=== PATIENT | male | born 1935 | race Caucasian/White ===

== ENCOUNTER 2017-03-11 15:25 | Inpatient (IN) ==
[2017-03-11] MEDS ORDERED: 0.9 % Sodium Chloride 500 ML IVC ONE (15:59)
--- NOTE | 2017-03-11 16:16 | Emergency Department Note ---
Disposition Clinical Impression: Elevated troponin I level CAP (community acquired pneumonia) Qualifiers: Laterality: unspecified laterality Qualified Code(s): J18.9 - Pneumonia, unspecified organism Altered mental state Qualifiers: Altered mental status type: unspecified Qualified Code(s): R41.82 - Altered mental status, unspecified Disposition: Admitted As Inpatient Condition: Fair Time of Disposition: 18:40 Headache HPI - General Chief Complaint: ED Headache Stated Complaint: mult symptoms Time Seen by Provider: 03/11/17 15:42 Source: patient, family Limitations: no limitations Nursing Notes Reviewed: Yes Vital Signs Reviewed: Yes - History of Present Illness HPI Narrative: 81-year-old male history of average, hypertension, diabetes, dementia and delirium presents with altered mental status for the last several weeks, patient states that he has no complaints denies abdominal pain or chest pain, his states that he has had some episodes of headache and chest tightness, she is mostly concerned about his blood pressure which has been in the 190s systolic, she states she denies fever or chills, he has had some cough somewhat productive. She just is concerned and she lives alone at home with him and she is unable to take care of him very well, they have no home health resources. Pt Subjective Complaint: headache Onset (ago): week(s) Onset description: gradual Pain Severity: mild Pain Scale: 2 Quality: aching Improves with: nothing Worsens with: none Associated symptoms: Reports: none - Related Data Home Medications Medication Instructions Recorded Confirmed Aspirin Enteric Coated [Aspirin EC] 81 mg PO QAM 11/27/14 11/27/14 ClonazePAM [Klonopin] 0.5 mg PO BID 11/27/14 11/27/14 Clopidogrel [Plavix] 75 mg PO QAM 11/27/14 11/27/14 Ergocalciferol (VITAMIN D2) 50,000 unit PO QWEEK 11/27/14 11/27/14 [Vitamin D2 (50,000 UNIT)] Gabapentin [Neurontin] 100 mg PO HS 11/27/14 11/27/14 Hydrocodone/Acetaminophen [[place] 1 each PO DAILY PRN 11/27/14 11/27/14 5-325 Tablet] LevETIRAcetam [Keppra] 1,000 mg PO QPM 11/27/14 11/27/14 LevETIRAcetam [Keppra] 500 mg PO QAM 11/27/14 11/27/14 Simvastatin [Zocor] 10 mg PO QPM 11/27/14 11/27/14 Tamsulosin [Flomax] 0.4 mg PO QAM 11/27/14 11/27/14 Lisinopril [Zestril] 5 mg PO BID 03/11/17 03/11/17 Allergies Allergy/AdvReac Type Severity Reaction Status Date / Time Sulfa (Sulfonamide Allergy Anaphylaxis Verified 03/11/17 15:40 Antibiotics) All systems ED: reviewed and negative except as stated. Review of Systems: As Per HPI Constitutional: Denies: fever, chills Eyes: Denies: eye pain ENT ED: Denies: congestion Cardiovascular: Denies: chest pain Respiratory: Denies: cough Gastrointestinal: Denies: abdominal pain, nausea Genitourinary: Denies: urgency Musculoskeletal: Denies: back pain, neck pain Integumentary: Denies: rash Neurological: Reports: as per HPI, headache Psychiatric: Denies: anxiety, depression Endocrine: Denies: fatigue Headache PMH - Past Medical History Medical history: Reports: COPD, coronary artery disease, diabetes, hypertension , kidney stones, myocardial infarction Male Surgical History: Reports: coronary bypass (CABG) Psychiatric history: Reports: no psych history - Social History Smoking Status: Former smoker Alcohol use: Reports: none Drug use: Reports: none Physical Exam Constitutional: Elderly male appears to be pleasantly demented, no acute complaints vital signs stable except for mild elevation in blood pressure Eyes: PERRLA, sclera anicteric ENT & Mouth: MMM Neck: normal inspection, neck is supple Resp: Coarse lung sounds bilaterally CV: RRR, no m/g/r GI: normal inspection, soft, no guarding or rigidity Neuro: A&O2, CNII-XII grossly intact, BENTLEY Skin: on limited exam, skin intact with no rashes or lesions - General Limitations: no limitations General appearance: alert, in no apparent distress Course Course Narrative: 81-year-old male as well as multiple concerns including headache, hypertension, however he has no complaints at this time, he denies any headache or chest pain. CT head, urinalysis, chest pain workup ordered, - Reevaluation(s) Reevaluation #1: Reevaluated the patient, his initial EKG did show some inferior Q waves, with inverted T-wave in aVL, borderline repolarization versus less than 1 mm elevation in lead 3 we did speak with cardiology Dr. Tejeda as well as intervention who recommended repeat troponin, in the meantime evaluation by hospitalist and admission, his troponin elevated's plan is for colon cardiology back for possible evaluation for need for catheterization. Cardiology consult was placed, patient was given aspiri. She also had evidence of infiltrate on his x-ray, started empirically on cephalexin and azithromycin for pneumonia, community-acquired, plan is for admission, evaluation by physical therapy occupational therapy, cardiology consultation, suspect likely troponin elevation due to demand ischemia as well as CK D and troponin leak. - Consultations Consultation #1: Consulted with Dr Spaulding, plan for possible Heparinization then repeat troponin stat and anticoagulation to stop if upon and was negative, unable to assess bleeding risk status is the patient has bowel movements but he does not report if he has blood in his stool, his hemoglobin is borderline low, this time we will just give aspirin with a repeat troponin, will discuss with hospitalist as the patient's transport to the floor, who knows to call the tone artist apprentice if he has any elevation in his troponin. Time: 18:56 Vital Signs Temperature 98.6 F 03/11/17 15:34 Pulse Rate 64 03/11/17 15:34 Respiratory Rate 18 03/11/17 15:34 Blood Pressure 185/67 03/11/17 15:34 O2 Sat by Pulse Oximetry 93 03/11/17 15:34 Temperature 98.1 F 03/11/17 18:41 Pulse Rate 62 03/11/17 18:41 Respiratory Rate 18 03/11/17 18:41 Blood Pressure 156/76 03/11/17 18:41 O2 Sat by Pulse Oximetry 89 03/11/17 18:41 Oxygen Delivery Oxygen Delivery Room Air Headache - Differential Diagnosis Differential Diagnosis: Likely: migraine - Medical Records Medical records reviewed: Yes I reviewed the patient's medical records. - Lab Data Lab results reviewed: Yes I reviewed the patient's lab results. Result diagrams: 03/11/17 16:08 03/11/17 16:08 Lab Results 03/11/17 03/11/17 03/11/17 Range/Units 16:08 16:08 16:08 WBC 9.7 (4.3-11.1) K/mcL RBC 4.49 (4.19-5.50) M/mcL Hgb 12.1 L (12.9-16.9) g/dL Hct 38.6 (37.5-50.1) % MCV 86.0 (83.0-100.0) fL MCH 26.9 L (28.0-33.3) pg MCHC 31.3 L (31.6-35.5) g/dL RDW 13.2 (11.5-14.5) % Plt Count 231 (140-400) K/mcL MPV 10.4 (9.4-12.4) fL Immature Gran % 0.3 (0-4) % Seg Neutrophils % 87.6 % Lymphocytes % 4.7 % Monocytes % 4.7 % Eosinophils % 2.4 % Basophils % 0.3 % Neutrophils # 8.5 (1.6-8.9) K/mcL Lymphocytes # 0.5 L (0.6-4.6) K/mcL Monocytes # 0.5 (0.0-1.3) K/mcL Eosinophils # 0.2 (0.0-0.6) K/mcL Basophils # 0.0 (0.0-0.2) K/mcL PT 13.1 H (9.4-12.1) Seconds INR 1.2 APTT 30.6 (26.0-36.0) Seconds Sodium (136-145) mEq/L Potassium (3.5-5.1) mEq/L Chloride (98-107) mEq/L Carbon Dioxide (23-29) mEq/L BUN (8-23) mg/dL Creatinine (0.70-1.30) mg/dL Est GFR ( Amer) (> 60) Est GFR (Non-Af Amer) (> 60) BUN/Creatinine Ratio (6-26) Glucose (70-105) mg/dL Calculated Osmolality (280-300) Calcium (8.6-10.3) mg/dL Total Bilirubin 0.7 (0.3-1.0) mg/dL Direct Bilirubin 0.2 (0.0-0.2) mg/dL Indirect Bilirubin 0.5 (0.0-1.2) mg/dL AST 18 (13-39) Units/L ALT 12 (7-52) Units/L Alkaline Phosphatase 52 (34-104) Units/L Creatine Kinase (30-223) Units/L Troponin I (< 0.04) ng/mL Serum Total Protein 7.6 (6.4-8.9) g/dL Albumin 3.9 (3.5-5.7) g/dL Globulin 3.7 H (2.4-3.5) g/dL Albumin/Globulin Ratio 1.1 (1.1-2.2) Lipase 17 (11-82) Units/L TSH (0.340-5.600) mcIU/mL Urine Color (Yellow) Urine Clarity (Clear) Urine pH (5.0-8.0) pH Units Ur Specific [place] (1.010-1.025) Urine Protein (Neg-Trace) mg/dL Urine Glucose (UA) (Normal) mg/dL Urine Ketones (Negative) mg/dL Urine Blood (Negative) Urine Nitrite (Negative) Urine Bilirubin (Negative) Urine Urobilinogen (Normal) mg/dL Ur Leukocyte Esterase (Negative) Urine Microscopic RBC (0-3) per hpf Urine Microscopic WBC (0-3) per hpf Ur Squamous Epith Cells (None-Few) per lpf Urine Bacteria (None-Few) per hpf Hyaline Casts (None-Few) per lpf Ur Culture Indicated? (NO) 03/11/17 03/11/17 03/11/17 Range/Units 16:08 16:08 16:19 WBC (4.3-11.1) K/mcL RBC (4.19-5.50) M/mcL Hgb (12.9-16.9) g/dL Hct (37.5-50.1) % MCV (83.0-100.0) fL MCH (28.0-33.3) pg MCHC (31.6-35.5) g/dL RDW (11.5-14.5) % Plt Count (140-400) K/mcL MPV (9.4-12.4) fL Immature Gran % (0-4) % Seg Neutrophils % % Lymphocytes % % Monocytes % % Eosinophils % % Basophils % % Neutrophils # (1.6-8.9) K/mcL Lymphocytes # (0.6-4.6) K/mcL Monocytes # (0.0-1.3) K/mcL Eosinophils # (0.0-0.6) K/mcL Basophils # (0.0-0.2) K/mcL PT (9.4-12.1) Seconds INR APTT (26.0-36.0) Seconds Sodium 137 (136-145) mEq/L Potassium 4.5 (3.5-5.1) mEq/L Chloride 103 (98-107) mEq/L Carbon Dioxide 28 (23-29) mEq/L BUN 25 H (8-23) mg/dL Creatinine 1.53 H (0.70-1.30) mg/dL Est GFR ( Amer) 53 L (> 60) Est GFR (Non-Af Amer) 44 L (> 60) BUN/Creatinine Ratio 16 (6-26) Glucose 132 H (70-105) mg/dL Calculated Osmolality 290 (280-300) Calcium 9.3 (8.6-10.3) mg/dL Total Bilirubin (0.3-1.0) mg/dL Direct Bilirubin (0.0-0.2) mg/dL Indirect Bilirubin (0.0-1.2) mg/dL AST (13-39) Units/L ALT (7-52) Units/L Alkaline Phosphatase (34-104) Units/L Creatine Kinase 27 L (30-223) Units/L Troponin I 0.04 H* (< 0.04) ng/mL Serum Total Protein (6.4-8.9) g/dL Albumin (3.5-5.7) g/dL Globulin (2.4-3.5) g/dL Albumin/Globulin Ratio (1.1-2.2) Lipase (11-82) Units/L TSH 0.806 (0.340-5.600) mcIU/mL Urine Color Yellow (Yellow) Urine Clarity Cloudy A (Clear) Urine pH 6.0 (5.0-8.0) pH Units Ur Specific [place] 1.017 (1.010-1.025) Urine Protein 30 H (Neg-Trace) mg/dL Urine Glucose (UA) Normal (Normal) mg/dL Urine Ketones Negative (Negative) mg/dL Urine Blood Large H (Negative) Urine Nitrite Negative (Negative) Urine Bilirubin Negative (Negative) Urine Urobilinogen Normal (Normal) mg/dL Ur Leukocyte Esterase Large H (Negative) Urine Microscopic RBC 5-15 H (0-3) per hpf Urine Microscopic WBC TNTC H (0-3) per hpf Ur Squamous Epith Cells Many H (None-Few) per lpf Urine Bacteria Few (None-Few) per hpf Hyaline Casts None Seen (None-Few) per lpf Ur Culture Indicated? NO. (NO) - Radiology Data Radiology results reviewed: Yes I reviewed the patient's radiology results. - EKG Data EKG attestation: Yes I reviewed and interpreted this EKG. EKG shows normal: sinus rhythm Rate: normal (65 bpm QRS 107 QTC 420 early repolarization in lead 3, ST depression and inverted T-wave in aVL.) Q waves: III, aVF Interpretation: other (Repeat EKG at 1805 shows persistent aVL T-wave inversion , earlier formalization lead 3 Q waves in 3 and aVF) - Core Measures AMI Core Measures Followed: Yes
[2017-03-11 16:29] LABS: Basophils % 0.3 %; Eosinophils # 0.2 K/mcL (0.0-0.6); Eosinophils % 2.4 %; Hematocrit 38.6 % (37.5-50.1); Hemoglobin 12.1 g/dL (12.9-16.9); Immature Granulocytes % 0.3 % (0-4); Lymphocytes # 0.5 K/mcL (0.6-4.6); Lymphocytes % 4.7 %; Mean Corpuscular HGB Conc 31.3 g/dL (31.6-35.5); Mean Corpuscular Hemoglobin 26.9 pg (28.0-33.3); Mean Platelet Volume 10.4 fL (9.4-12.4); Monocytes # 0.5 K/mcL (0.0-1.3); Monocytes % 4.7 %; Neutrophils # 8.5 K/mcL (1.6-8.9); Platelet Count 231 K/mcL (140-400); Red Blood Count 4.49 M/mcL (4.19-5.50); Red Cell Distribution Width 13.2 % (11.5-14.5); Segmented Neutrophils % 87.6 %
[2017-03-11 16:33] LABS: Bilirubin,Urine Negative (Negative); Blood,Urine Large (Negative); Clarity,Urine Cloudy (Clear); Color,Urine Yellow (Yellow); Glucose,Urine (UA) Normal (Normal); Ketones,Urine Negative (Negative); Leukocyte Esterase,Urine Large (Negative); Nitrite,Urine Negative (Negative); Protein,Urine 30 mg/dL (Neg-Trace); Specific Gravity,Urine 1.017 (1.010-1.025); Urobilinogen,Urine Normal (Normal)
[2017-03-11 16:34] LABS: INR 1.2; Prothrombin Time 13.1 Seconds (9.4-12.1)
[2017-03-11 16:35] LABS: Hyaline Casts,Urine None Seen per lpf (None-Few); Squamous Epithelial Cell,Urine Many per lpf (None-Few); WBC,Urine TNTC per hpf (0-3)
[2017-03-11 16:36] LABS: Activated Partial Thrombo Time 30.6 Seconds (26.0-36.0)
[2017-03-11 16:46] LABS: Bacteria,Urine Few per hpf (None-Few)
[2017-03-11 16:47] LABS: Albumin 3.9 g/dL (3.5-5.7); Albumin/Globulin Ratio 1.1 (1.1-2.2); Bilirubin,Direct 0.2 mg/dL (0.0-0.2); Bilirubin,Indirect 0.5 mg/dL (0.0-1.2); Bilirubin,Total 0.7 mg/dL (0.3-1.0); Calcium 9.3 mg/dL (8.6-10.3); Globulin 3.7 g/dL (2.4-3.5); Potassium 4.5 mEq/L (3.5-5.1); Total Protein 7.6 g/dL (6.4-8.9)
--- NOTE | 2017-03-11 17:04 | Emergency Department Note ---
START Narrative - START START: I examined this patient and my medical decision-making was reviewed with the Resident Physician. I agree with the documented findings, disposition and treatment plan as described except to the extent set forth below. 81 yo M here for confusion, increasing weakness, back pain, problems with BPs. Pt is a known diabetic, copd, CABG pt. He lives at home with . she states hes been getting more and more confused lately with poor appetite. labs pending ct pending cxr concerns for possible pneumonia; could be cause of pts confusion and weakness. pt to be admitted for IV fluids, weakness eval.
[2017-03-11] MEDS ORDERED: Azithromycin 500 MG in D5% in Water 250 ML IVPB ONE (17:22)
[2017-03-11] MEDS ORDERED: Aspirin 81 MG TAB.CHEW PO STA (17:35)
[2017-03-11 17:37] LABS: Thyroid Stimulating Hormone 0.806 mcIU/mL (0.340-5.600)
--- NOTE | 2017-03-11 18:03 | Internal Med History&Physical ---
Date of Encounter: 03/11/17 Time of Encounter: 18:00 Assessment and Plan (1) Pneumonia Current visit: Yes Status: Acute Comminuted acquired pneumonia with start patient on Zosyn Qualifiers: Pneumonia type: due to unspecified organism Laterality: unspecified laterality Lung location: unspecified part of lung Qualified Code(s): J18.9 - Pneumonia, unspecified organism (2) UTI (urinary tract infection) Current visit: Yes Status: Acute Patient has UTI and also pneumonia Zosyn will cover both Qualifiers: Urinary tract infection type: acute cystitis Hematuria presence: without hematuria Qualified Code(s): N30.00 - Acute cystitis without hematuria (3) Mental status change Current visit: Yes Status: Acute Mental status changes most likely secondary to pneumonia and UTI and dehydration Qualifiers: Altered mental status type: somnolence Qualified Code(s): R40.0 - Somnolence (4) HTN (hypertension) Current visit: Yes Status: Chronic Chronic and/or control without home medication for better blood pressure control Qualifiers: Hypertension type: essential hypertension Qualified Code(s): I10 - Essential (primary) hypertension (5) COPD (chronic obstructive pulmonary disease) Current visit: No Status: Acute Qualifiers: COPD type: emphysema Emphysema type: unspecified Qualified Code(s): J43.9 - Emphysema, unspecified (6) Diabetes Current visit: No Status: Chronic Chronic resume home medication and place on sliding scale Qualifiers: Diabetes mellitus type: type 2 Diabetes mellitus complication status: without complication Diabetes mellitus detention insulin use: unspecified guest services representative insulin use status Qualified Code(s): E11.9 - Type 2 diabetes mellitus without complications (7) Hx of CABG Current visit: No Status: Acute No chest pain (8) ANGE (acute kidney injury) Current visit: Yes Status: Acute Likely due to dehydration Internal Medicine - H&P: HPI Chief complaint: sob and weakness Admitted From: Emergency Dept Plans for Post Hospital Care: Home History of present illness: Mr. Lombardi is a 81 year old male Patient with history of COPD, CAD, had a history of CABG, diabetes, hypertension , high cholesterol patient was brought in by with multiple complaints patient has been confused some mental status changes also coughing, headache and back pain and increased shortness of breath and more lethargic emergency room evaluation shows patient have UTI , mildly elevated troponin of 0.04 and renal failure creatinine 1.5 chest x ray is suggestive of pneumonia patient will be admitted for IV antibiotics probably start him on Zosyn blood cultures and iv dehydration Past Med Surg Social Fam HX - Past Medical History Medical history: COPD, coronary artery disease, diabetes, hypertension, kidney stones, myocardial infarction Psychiatric history: no psych history - Past Surgical History Surgical History: coronary bypass (CABG) - Social History Smoking Status: Former smoker Smokeless Tobacco Status: No Alcohol use: none Drug use: none - Family History Father Hx Family Cardiac Disorders: Yes (englarged heart) Internal Medicine - H&P: Meds Aspirin Enteric Coated [Aspirin EC] 81 mg PO QAM 11/27/14 [History] ClonazePAM [Klonopin] 0.5 mg PO BID 11/27/14 [History] Clopidogrel [Plavix] 75 mg PO QAM 11/27/14 [History] Ergocalciferol (VITAMIN D2) [Vitamin D2 (50,000 UNIT)] 50,000 unit PO MO [History] Gabapentin [Neurontin] 100 mg PO HS 11/27/14 [History] Hydrocodone/Acetaminophen [[place] 5-325 Tablet] 1 each PO DAILY PRN 11/27/14 [ History] LevETIRAcetam [Keppra] 1,000 mg PO QPM 11/27/14 [History] LevETIRAcetam [Keppra] 500 mg PO QAM 11/27/14 [History] Simvastatin [Zocor] 10 mg PO QPM 11/27/14 [History] Tamsulosin [Flomax] 0.8 mg PO QAM 11/27/14 [History] Lisinopril [Zestril] 5 mg PO BID 03/11/17 [History] 3 Allergy/AdvReac Type Severity Reaction Status Date / Time Sulfa (Sulfonamide Allergy Anaphylaxis Verified 03/11/17 15:40 Antibiotics) All Systems PM: A 10-system review of systems was performed and is negative for pertinent findings except as documented above in the HPI. - Constitutional Constitutional: fatigue, lethargy - EENT Eyes: no change in vision, no discharge, no pain, no photophobia Ears: no ear discharge, no ear pain, no tinnitus Nose, mouth and throat: no dysphagia, no nasal discharge, no neck pain, no sore throat - Cardiovascular Cardiovascular ROS IM: no chest pain, no diaphoresis, no dyspnea, no lightheadedness, no palpitations, no syncope - Respiratory Respiratory: cough, dyspnea - Gastrointestinal Gastrointestinal: no abdominal pain, no diarrhea, no hematemesis, no hematochezia, no melena, no nausea, no vomiting - Musculoskeletal Musculoskeletal ROS IM: no numbness, no tingling - Constitutional Vitals: Temp Pulse Resp BP Pulse Ox 98.6 F 64 18 185/67 93 03/11/17 15:34 03/11/17 15:34 03/11/17 15:34 03/11/17 15:34 03/11/17 15:34 General appearance: Present: mild distress - Eye Eye exam: Present: PERRL, conjuntiva pink, sclera anicteric Pupils: Present: PERRL - Respiratory Respiratory exam: Present: rhonchi - Cardiovascular Cardiovascular exam: Present: RRR, +S1, +S2. Absent: diastolic murmur, gallop, rubs, systolic murmur - GI/Abdominal GI/Abdominal exam: Present: normal bowel sounds, soft, no peritoneal signs. Absent: distended, tenderness - Extremities Exam Extremities exam: Present: warm, radial pulses palpable and symmetrical. Absent : calf tenderness, cyanotic, pedal edema Internal Med - H&P Results - Labs CBC & Chem 7: 03/11/17 16:08 03/11/17 16:08 Labs: Short CBC 03/11/17 Range/Units 16:08 WBC 9.7 (4.3-11.1) K/mcL Hgb 12.1 L (12.9-16.9) g/dL Hct 38.6 (37.5-50.1) % Plt Count 231 (140-400) K/mcL Neutrophils # 8.5 (1.6-8.9) K/mcL BMP 03/11/17 16:08 Sodium 137 Potassium 4.5 Chloride 103 Carbon Dioxide 28 BUN 25 H Creatinine 1.53 H Glucose 132 H Calcium 9.3 Cardiac Enzymes 03/11/17 Range/Units 16:08 Troponin I 0.04 H* (< 0.04) ng/mL Liver Function 03/11/17 Range/Units 16:08 Total Bilirubin 0.7 (0.3-1.0) mg/dL Direct Bilirubin 0.2 (0.0-0.2) mg/dL AST 18 (13-39) Units/L ALT 12 (7-52) Units/L Alkaline Phosphatase 52 (34-104) Units/L Albumin 3.9 (3.5-5.7) g/dL Urine 03/11/17 Range/Units 16:19 Urine Color Yellow (Yellow) Urine Clarity Cloudy A (Clear) Urine pH 6.0 (5.0-8.0) pH Units Ur Specific [place] 1.017 (1.010-1.025) Urine Protein 30 H (Neg-Trace) mg/dL Urine Glucose (UA) Normal (Normal) mg/dL - Impressions ITS Impressions Chest X-Ray 03/11/17 15:59 IMPRESSION: Low lung volumes with features of pulmonary vascular congestion and edema. Difficult to exclude superimposed aspiration or pneumonia which could be present in the appropriate clinical context. D/ / Ankur Yanes / Ankur Yanes Interpreting Provider: Ankur Yanes Head CT 03/11/17 15:59 IMPRESSION: No acute intracranial abnormality. Cerebral atrophy. Chronic small vessel ischemic changes. Remote right temporoparietal infarct. D/ / 03/11/2017 16:59:02 Nneka Lomeli MD / Danelle Gonzalez Interpreting Provider: Nneka Lomeli MD
[2017-03-11] MEDS ORDERED: Naloxone 0.4 MG/ML INJ IVP PRN (18:08)
[2017-03-11] MEDS ORDERED: *HR* HYDROcodone/Acet 5/325 mg TABLET PO PRN (18:12)
[2017-03-11] MEDS ORDERED: 0.9 % Sodium Chloride 1,000 ML IVC SCH (18:15)
[2017-03-11] MEDS: clonazePAM 0.5 MG TABLET PO SCH (20:22)
[2017-03-11] MEDS: Gabapentin 100 MG CAPSULE PO SCH (20:23)
[2017-03-11] MEDS ORDERED: cefTRIAXone 1,000 MG in Water for inj. (sterile) 10 ML IVP ONE (21:00)
[2017-03-11] MEDS: levETIRAcetam 250 MG TABLET PO SCH (21:39)
[2017-03-12 00:38] LABS: Basophils % 0.2 %; Eosinophils # 0.1 K/mcL (0.0-0.6); Eosinophils % 1.4 %; Hematocrit 34.6 % (37.5-50.1); Hemoglobin 11.1 g/dL (12.9-16.9); Immature Granulocytes % 0.3 % (0-4); Lymphocytes # 0.9 K/mcL (0.6-4.6); Lymphocytes % 9.5 %; Mean Corpuscular HGB Conc 32.1 g/dL (31.6-35.5); Mean Corpuscular Hemoglobin 27.3 pg (28.0-33.3); Mean Platelet Volume 10.6 fL (9.4-12.4); Monocytes # 0.7 K/mcL (0.0-1.3); Monocytes % 7.5 %; Neutrophils # 7.6 K/mcL (1.6-8.9); Platelet Count 192 K/mcL (140-400); Red Blood Count 4.07 M/mcL (4.19-5.50); Red Cell Distribution Width 13.3 % (11.5-14.5); Segmented Neutrophils % 81.1 %
--- NOTE | 2017-03-12 00:54 | Event Note ---
Date of Encounter: 03/12/17 Time of Encounter: 00:50 Called about patient having slow HR on telemetry. I requested EKG and reviewed it which suggests slow A. fib with HR 48. BP stable with SBP in the 150's. I asked RN to monitor and contact me if HR drops to < 40 and/or if BP becomes unstable. If so, he will need Dopamine infusion. Cardiology has been consulted by admitting physician. No report of chest pain by patient per RN. I reviewed his medications, and he is not on any AV dakota suppressants.
[2017-03-12 01:02] LABS: Magnesium 1.9 mg/dL (1.6-2.6)
[2017-03-12] MEDS: *HR* Enoxaparin 40 MG/0.4 ML SYRINGE SQ SCH (06:49)
[2017-03-12] MEDS: amLODIPine 5 MG TABLET PO SCH (09:26)
[2017-03-12] MEDS: clonazePAM 0.5 MG TABLET PO SCH ×2 (09:26→21:30)
[2017-03-12] MEDS: levETIRAcetam 250 MG TABLET PO SCH ×2 (09:26→19:02)
[2017-03-12] MEDS: Aspirin Enteric Coated 81 MG Tablet PO SCH (09:26)
[2017-03-12] MEDS ORDERED: Furosemide 20 MG/2 ML VIAL IVP ONE (10:41)
--- NOTE | 2017-03-12 12:17 | Cardiology Consult Note ---
Date of Encounter: 03/12/17 Time of Encounter: 12:17 Assessment and Plan (1) Elevated troponin I level Current Visit: Yes Status: Acute Mild troponin elevation 0.04, 0.05, 0.06, 0.05. Likely demand ischemia in the setting of HTN with CKD. One episode of chest discomfort per . Patient denies but is confused. Check TTE. TSH normal. Last TTE 02/2015- EF 50%, moderate LVH calcified AV, mild AR, mild TR. Continue medical management. Asa, plavix and statin. No bb due to bradycardia. (2) Bradycardia Current Visit: Yes Status: Acute Patient noted to have bradycardia last night. EKG shows SB with long first degree block and occasional second degree type I ( wenckebach). No indication for PPM at this time. HR currently 60-70's. Continue to monitor. Avoid AV dakota angi. TTE pending. Discussion w patient/family: The assessment and plan as outlined above was discussed with the patient and/or family members who expressed understanding and agreement. All questions were answered. Thank you for involving us in the care of your patient. Please call with any questions. History of Present Illness Consult date: 03/12/17 Requesting physician: Enmanuel Carrillo Consult reason: elevated troponin and bradycardia Chief complaint: AMS History of present illness: Mr. Lombardi is a 81 year old male with a history of CAD s/p CABG, CVA , DM type II, and COPD who was brought to the ER by his family for increasing confusion and elevated blood pressure. B/p 190's systolic at home. reported multiple other complaints including patient c/o chest pain once, headaches, and fatigue. Cardiology consulted for bradycardia and mild troponin elevation. HR noted to be in the upper 40's. EKG was concerning for afib per primary team. On exam patient is confused and trying to pull IV and telemetry off. and sons at bedside. Denies chest pain or SOB. Past Med Surg Social Fam HX - Past Medical History Attestation: Yes The following information was validated with the patient. Medical history: arthritis, COPD, coronary artery disease, diabetes, hypertension, kidney stones, myocardial infarction Psychiatric history: no psych history - Past Surgical History Surgical History: coronary bypass (CABG) - Social History Smoking Status: Former smoker Smokeless Tobacco Status: No Alcohol use: none Drug use: none - Family History Father Hx Family Cardiac Disorders: Yes (englarged heart) Medications and Allergies Aspirin Enteric Coated [Aspirin EC] 81 mg PO QAM 11/27/14 [History] ClonazePAM [Klonopin] 0.5 mg PO BID 11/27/14 [History] Clopidogrel [Plavix] 75 mg PO QAM 11/27/14 [History] Ergocalciferol (VITAMIN D2) [Vitamin D2 (50,000 UNIT)] 50,000 unit PO MO [History] Gabapentin [Neurontin] 100 mg PO HS 11/27/14 [History] Hydrocodone/Acetaminophen [[place] 5-325 Tablet] 1 each PO DAILY PRN 11/27/14 [ History] LevETIRAcetam [Keppra] 1,000 mg PO QPM 11/27/14 [History] LevETIRAcetam [Keppra] 500 mg PO QAM 11/27/14 [History] Simvastatin [Zocor] 10 mg PO QPM 11/27/14 [History] Tamsulosin [Flomax] 0.8 mg PO QAM 11/27/14 [History] Lisinopril [Zestril] 5 mg PO BID 03/11/17 [History] 3 Allergy/AdvReac Type Severity Reaction Status Date / Time Sulfa (Sulfonamide Allergy Anaphylaxis Verified 03/11/17 15:40 Antibiotics) All Systems Review: A 10-system review of systems was performed and is negative for pertinent findings except as documented above in the HPI. Physical Examination Vital Signs, Last 4 Hours Temp Pulse Resp BP Pulse Ox 03/12/17 08:29 98.3 F 74 16 169/61 93 General: Conversant, No Apparent Distress, Other (Restless and confused) HEENT: Atraumatic, Normocephaly, Mucus Membranes Moist Neck: No JVD, Normal carotid pulses Cardiac: Other (Irregular, frequent PAC. ) Lungs: Normal Breath Sounds, No Wheeze, Rales, Rhonchi Neuro: Alert and responsive, No focal deficits noted Abdomen: Soft, Non-Tender Skin: No rashes noted on visualized skin Musculoskeletal: No Chest Wall Tenderness Extremities: No Clubbing, No Cyanosis, No Edema, Normal Pulses Results 03/12/17 00:11 03/11/17 16:08 Lab Results 03/11/17 03/12/1703/12/18 18:29 00:11 00:11 WBC 9.4 Hgb 11.1 L Hct 34.6 L Plt Count 192 Magnesium Troponin I 0.05 H* 0.06 H* B-Natriuretic Peptide 03/12/17 03/12/17 03/12/17 00:11 00:11 07:07 WBC Hgb Hct Plt Count Magnesium 1.9 Troponin I 0.05 H* B-Natriuretic Peptide 1239 H - Imaging and Cardiology Echo: report reviewed - EKG Interpretation EKG results cardiology: personally reviewed Consult Discharge Plan - Plan Referrals: Dejan Moraes MD [Primary Care Provider] -
--- NOTE | 2017-03-12 14:13 | Internal Med Progress Note ---
Date of Encounter: 03/12/17 Time of Encounter: 14:01 - Assessment and plan (1) Acute encephalopathy Current Visit: Yes Status: Acute Assessment and plan: Suspect related to infection of pneumonia/UTI. Other etiologies possible include CVA, hypertensive encephalopathy, or worsening dementia. MRI brain/carotids when patient more stable. Unasyn to cover for possible aspiration pneumonia - bedside swallow eval Blood culture, sputum culture, s pneumo and legionella ag, mycoplasma lvl, procalcitonin. Drug tox screen, ASA, APAP lvl BP control without aggressive correction Will consult Neurology if no resolution of symptoms. (2) HTN (hypertension) Current Visit: Yes Status: Chronic Assessment and plan: Continue Norvasc, low dose lisinopril Hydralazine IV prn, Qualifiers: Hypertension type: essential hypertension Qualified Code(s): I10 - Essential (primary) hypertension (3) UTI (urinary tract infection) Current Visit: Yes Status: Acute Assessment and plan: Unasyn Qualifiers: Urinary tract infection type: acute cystitis Hematuria presence: without hematuria Qualified Code(s): N30.00 - Acute cystitis without hematuria (4) Pneumonia Current Visit: Yes Status: Acute Assessment and plan: as above, follow-up sputum and blood cultures. Continue Unasyn. May consider repeat chest x-ray after diuresis. Qualifiers: Pneumonia type: due to unspecified organism Laterality: unspecified laterality Lung location: unspecified part of lung Qualified Code(s): J18.9 - Pneumonia, unspecified organism (5) Hematuria Current Visit: Yes Status: Acute Assessment and plan: He does complain of abdominal pain per reports. Urinalysis on admission did show large amount of blood, and proteinuria also noted. INR is 1.2, platelet count is within normal limits. This could be related to UTI. Possibly nephrolithiasis as well based on patient PMH. Will need to search other etiology, prostate and/or bladder related. Follow-up CT abdomen/Pelvis. Qualifiers: Hematuria type: gross Qualified Code(s): R31.0 - Gross hematuria (6) Chronic kidney disease (CKD), stage III (moderate) Current Visit: Yes Status: Acute Assessment and plan: Does not appear to have ANGE as patient is currently at baseline renal function. Given multiple issues currently, we will monitor renal function closely and renally dose all medications. (7) Bradycardia Current Visit: Yes Status: Acute Assessment and plan: Evaluated by Cardiology. Noted that sinus bradycardia with first degree AV block. Will avoid AV dakota blocking agents per recommendations. Echocardiogram f/u (8) Elevated troponin I level Current Visit: Yes Status: Acute Assessment and plan: Likely demand ischemia (9) COPD (chronic obstructive pulmonary disease) Current Visit: No Status: Acute Assessment and plan: Not in acute exacerbation. 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 Qualifiers: Hypervolemia type: unspecified Qualified Code(s): E87.70 - Fluid overload, unspecified (14) Abdominal pain Current Visit: Yes Status: Acute Assessment and plan: Patient is poor historian currently unsure if this is due to dementia or acute encephalopathy. Will obtain CT abdomen/pelvis without contrast. I reassessed patient later in afternoon and at this moment he denies abdominal/flank/ suprapubic pain. Qualifiers: Abdominal location: generalized Qualified Code(s): R10.84 - Generalized abdominal pain - Subjective Interval history: Examined patient with in room in this morning. He presented for confusion for several weeks, hypertension, found to have UTI, pneumonia, dehydration. Currently being treated for both with Zosyn. states his BP was elevated at home about 216/70s and so she brought patient in. He has known history of CABG and CVA. at bedside states he is still not at baseline. BP today shows gradual improvement. 194/65 in AM, 169/61 3 hours later with HR in the 70s. Weakness is still present. Acute encephalopathy - infectious vs CVA known history vs hypertensive encephalopathy Fluid overload - diuresis Weakness Bradycardia Hematuria Possible aspiration pneumonia abdominal pain - altered unable to provide better detail of pain. Unasyn Bedside swallow eval Pneumonia studies. CT abdomen/pelvis Pt/OT for weakness and possible placement since patient cannot take care of himself and is having difficulty taking care of him as well Neurology consult if no baseline - Constitutional Vitals: Temp Pulse Resp BP Pulse Ox 99.5 F 74 18 105/73 94 03/12/17 12:51 03/12/17 12:51 03/12/17 12:51 03/12/17 12:51 03/12/17 12:51 Internal Medicine: Result - Labs CBC & Chem 7: 03/12/17 00:11 03/11/17 16:08 Labs: Short CBC 03/12/17 Range/Units 00:11 WBC 9.4 (4.3-11.1) K/mcL Hgb 11.1 L (12.9-16.9) g/dL Hct 34.6 L (37.5-50.1) % Plt Count 192 (140-400) K/mcL Neutrophils # 7.6 (1.6-8.9) K/mcL Cardiac Enzymes 03/11/17 03/12/17 03/12/17 Range/Units 18:29 00:11 07:07 Troponin I 0.05 H* 0.06 H* 0.05 H* (< 0.04) ng/mL - ABG Interpretation ABG results: PT/INR, D-dimer PT 13.1 Seconds (9.4-12.1) H 03/11/17 16:08 Consult Discharge Plan - Plan Referrals: Dejan Moraes MD [Primary Care Provider] -
[2017-03-12] MEDS: Ampicillin/Sulbactam 3,000 MG in 0.9 % Sodium Chloride Mini Bag 100 ML IVPB SCH ×2 (14:30→19:03)
[2017-03-12 15:15] LABS: Acetaminophen < 1.0 mcg/mL (10-30); Salicylate < 5.0 mg/dL (15.0-30.0)
--- NOTE | 2017-03-12 17:17 | Electrocardiograph Report ---
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
--- NOTE | 2017-03-12 17:22 | Electrocardiograph Report ---
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
[2017-03-12] MEDS ORDERED: levETIRAcetam 250 MG TABLET PO SCH (18:00)
[2017-03-12] MEDS: Gabapentin 100 MG CAPSULE PO SCH (21:29)
[2017-03-13] MEDS ORDERED: Haloperidol Lactate 5 MG/ML VIAL IVP ONE (01:44)
[2017-03-13] MEDS: Ampicillin/Sulbactam 3,000 MG in 0.9 % Sodium Chloride Mini Bag 100 ML IVPB SCH ×3 (01:55→12:17)
[2017-03-13] MEDS: *HR* Enoxaparin 40 MG/0.4 ML SYRINGE SQ SCH (05:52)
[2017-03-13 06:43] LABS: Basophils % 0.2 %; Eosinophils % 0.4 %; Hematocrit 33.3 % (37.5-50.1); Hemoglobin 10.9 g/dL (12.9-16.9); Immature Granulocytes % 0.3 % (0-4); Lymphocytes # 0.8 K/mcL (0.6-4.6); Lymphocytes % 7.6 %; Mean Corpuscular HGB Conc 32.7 g/dL (31.6-35.5); Mean Corpuscular Hemoglobin 27.5 pg (28.0-33.3); Mean Corpuscular Volume 83.9 fL (83.0-100.0); Mean Platelet Volume 10.3 fL (9.4-12.4); Monocytes # 0.6 K/mcL (0.0-1.3); Monocytes % 6.2 %; Neutrophils # 8.8 K/mcL (1.6-8.9); Platelet Count 202 K/mcL (140-400); Red Blood Count 3.97 M/mcL (4.19-5.50); Red Cell Distribution Width 13.6 % (11.5-14.5); Segmented Neutrophils % 85.3 %
[2017-03-13 07:13] LABS: Calcium 8.6 mg/dL (8.6-10.3); Potassium 3.6 mEq/L (3.5-5.1)
--- NOTE | 2017-03-13 08:11 | Urology - Consult Note ---
Date of Encounter: 03/13/17 Time of Encounter: 08:10 - Assessment and Plan (1) Staghorn calculus Current Visit: Yes Status: Acute Assessment and plan: I reviewed the ct scan and the patient has a large volume of stone in the right kidney extending to the UPJ. There is hydronephrosis in the upper pole. I suspect this is the cause of his flank pain, hematuria, and contributing to his renal insufficiency. appropriate treatment is placement of a ureteral stent with staged PCNL. This has been discussed with the family and they agree to proceed. the signed the consent bc pt has moderate dementia. The ureteral stent will be placed in AM. Urology CN:HPI Consult date: 03/13/17 Reason for consult Urology: Hydronephrosis History of present illness: 81 yo male presents with altered mental status. flank pain. hematuria. CT scan Moderate right pelvocaliectasis with bulky right nephrolithiasis. Lack of hydroureter and abrupt decompression of the right renal pelvis at the UPJ raises a question of underlying stricture. Difficult to exclude superimposed pyelonephritis given asymmetrically increased surrounding right renal inflammatory stranding. No drainable perinephric fluid collection. Past Med Surg Social Fam HX - Past Medical History Medical history: arthritis, COPD, coronary artery disease, diabetes, hypertension, kidney stones, myocardial infarction Psychiatric history: no psych history - Past Surgical History Surgical History: coronary bypass (CABG) - Social History Smoking Status: Former smoker Smokeless Tobacco Status: No Alcohol use: none Drug use: none - Family History Father Hx Family Cardiac Disorders: Yes (englarged heart) Medications and Allergies Aspirin Enteric Coated [Aspirin EC] 81 mg PO QAM 11/27/14 [History] ClonazePAM [Klonopin] 0.5 mg PO BID 11/27/14 [History] Clopidogrel [Plavix] 75 mg PO QAM 11/27/14 [History] Ergocalciferol (VITAMIN D2) [Vitamin D2 (50,000 UNIT)] 50,000 unit PO MO [History] Gabapentin [Neurontin] 100 mg PO HS 11/27/14 [History] Hydrocodone/Acetaminophen [[place] 5-325 Tablet] 1 each PO DAILY PRN 11/27/14 [ History] LevETIRAcetam [Keppra] 1,000 mg PO QPM 11/27/14 [History] LevETIRAcetam [Keppra] 500 mg PO QAM 11/27/14 [History] Simvastatin [Zocor] 10 mg PO QPM 11/27/14 [History] Tamsulosin [Flomax] 0.8 mg PO QAM 11/27/14 [History] Lisinopril [Zestril] 5 mg PO BID 03/11/17 [History] 3 Allergy/AdvReac Type Severity Reaction Status Date / Time Sulfa (Sulfonamide Allergy Anaphylaxis Verified 03/11/17 15:40 Antibiotics) Review of Systems ROS unobtainable: due to mental status Exam Initial Vital Signs Temp Pulse Resp BP Pulse Ox 98.6 F 64 18 185/67 93 03/11/17 15:34 03/11/17 15:34 03/11/17 15:34 03/11/17 15:34 03/11/17 15:34 - General physical appearance Present: no distress, chronically ill - Eyes Present: PERRL, conjunctiva is clear - ENT Present: normal nares, decreased hearing - Neck Present: no masses - Respiratory Present: normal respiratory effort - Abdomen Abdomen: Present: soft, suprapubic tenderness. Absent: masses - Integumentary Present: no rash, no growths - Neurologic Present: normal coordination, disoriented, confused Urology Results - Labs 03/13/17 06:24 03/13/17 06:24 Abnormal lab results RBC 3.97 M/mcL (4.19-5.50) L 03/13/17 06:24 Hgb 10.9 g/dL (12.9-16.9) L 03/13/17 06:24 Hct 33.3 % (37.5-50.1) L 03/13/17 06:24 MCH 27.5 pg (28.0-33.3) L 03/13/17 06:24 PT 13.1 Seconds (9.4-12.1) H 03/11/17 16:08 BUN 29 mg/dL (8-23) H 03/13/17 06:24 Creatinine 1.80 mg/dL (0.70-1.30) H 03/13/17 06:24 Est GFR ( Amer) 44 (> 60) L 03/13/17 06:24 Est GFR (Non-Af Amer) 36 (> 60) L 03/13/17 06:24 Glucose 156 mg/dL (70-105) H 03/13/17 06:24 Calculated Osmolality 301 (280-300) H 03/13/17 06:24 Creatine Kinase 27 Units/L (30-223) L 03/11/17 16:08 Troponin I 0.05 ng/mL (< 0.04) H* 03/12/17 07:07 B-Natriuretic Peptide 1239 pg/mL (Less than 100) H 03/12/17 00:11 Globulin 3.7 g/dL (2.4-3.5) H 03/11/17 16:08 HDL Cholesterol 24 mg/dL (40-59) L 03/12/17 00:11 Urine Clarity Cloudy (Clear) A 03/11/17 16:19 Urine Protein 30 mg/dL (Neg-Trace) H 03/11/17 16:19 Urine Blood Large (Negative) H 03/11/17 16:19 Ur Leukocyte Esterase Large (Negative) H 03/11/17 16:19 Urine Microscopic RBC 5-15 per hpf (0-3) H 03/11/17 16:19 Urine Microscopic WBC TNTC per hpf (0-3) H 03/11/17 16:19 Ur Squamous Epith Cells Many per lpf (None-Few) H 03/11/17 16:19 Salicylates < 5.0 mg/dL (15.0-30.0) L 03/12/17 14:47 Acetaminophen < 1.0 mcg/mL (10-30) L 03/12/17 14:47 Diabetes panel 03/13/17 Range/Units 06:24 Sodium 141 (136-145) mEq/L Potassium 3.6 (3.5-5.1) mEq/L Chloride 107 (98-107) mEq/L Carbon Dioxide 26 (23-29) mEq/L BUN 29 H (8-23) mg/dL Creatinine 1.80 H (0.70-1.30) mg/dL Glucose 156 H (70-105) mg/dL Calcium 8.6 (8.6-10.3) mg/dL Calcium panel 03/13/17 Range/Units 06:24 Calcium 8.6 (8.6-10.3) mg/dL Pituitary panel 03/13/17 Range/Units 06:24 Sodium 141 (136-145) mEq/L Potassium 3.6 (3.5-5.1) mEq/L Chloride 107 (98-107) mEq/L Carbon Dioxide 26 (23-29) mEq/L BUN 29 H (8-23) mg/dL Creatinine 1.80 H (0.70-1.30) mg/dL Glucose 156 H (70-105) mg/dL Calcium 8.6 (8.6-10.3) mg/dL Adrenal panel 03/13/17 Range/Units 06:24 Sodium 141 (136-145) mEq/L Potassium 3.6 (3.5-5.1) mEq/L Chloride 107 (98-107) mEq/L Carbon Dioxide 26 (23-29) mEq/L BUN 29 H (8-23) mg/dL Creatinine 1.80 H (0.70-1.30) mg/dL Glucose 156 H (70-105) mg/dL Calcium 8.6 (8.6-10.3) mg/dL All other labs normal. Consult Discharge Plan - Plan Referrals: Dejan Moraes MD [Primary Care Provider] -
[2017-03-13] MEDS: levETIRAcetam 250 MG TABLET PO SCH ×2 (09:26→18:08)
[2017-03-13] MEDS: clonazePAM 0.5 MG TABLET PO SCH ×2 (09:26→21:27)
[2017-03-13] MEDS: amLODIPine 5 MG TABLET PO SCH (09:26)
[2017-03-13] MEDS: Aspirin Enteric Coated 81 MG Tablet PO SCH (09:27)
[2017-03-13] MEDS ORDERED: Sennosides/Docusate Sodium TABLET PO PRN (10:35)
--- NOTE | 2017-03-13 10:36 | Cardiology Progress Note ---
Date of Encounter: 03/13/17 Time of Encounter: 09:00 Assessment and Plan (1) Elevated troponin I level Current Visit: Yes Status: Acute Mild troponin elevation 0.04, 0.05, 0.06, 0.05. Likely demand ischemia in the setting of HTN with CKD. Brief episode of chest discomfort per . Patient denies but is confused. Check TTE. TSH normal. Last TTE 02/2015- EF 50%, moderate LVH calcified AV, mild AR, mild TR. Continue medical management. Asa, plavix and statin. No bb due to bradycardia. (2) Bradycardia Current Visit: Yes Status: Acute Patient noted to have bradycardia 03/11/17 during nocturnal hours, HR 48 bpm. EKG shows SB with long first degree block and occasional second degree type I ( wenckebach). HR seen as low as 40 bpm at 0230 am. During the day HR increased to 60-70's. No indication for PPM at this time for nocturnal bradycardia. HR currently 60-70 's. Continue to monitor. Avoid AV dakota angi. Continues to have NSR to ST with long 1st degree block on telemetry. PAC at times. Avg HR 68 bpm. Min HR 50 bpm at 12:30 am. TTE pending. (3) Hx of CABG Current Visit: No Status: Acute H/o CABG. Continue asa, statin. No bb due to bradycardia seen during stay. Patient was not previously on beta-angi. H/o bradycardia in the past. (4) HTN (hypertension) Current Visit: Yes Status: Chronic Qualifiers: Hypertension type: essential hypertension Qualified Code(s): I10 - Essential (primary) hypertension Discussion w patient/family: The assessment and plan as outlined above was discussed with the patient and/or family members who expressed understanding and agreement. All questions were answered. Thank you for involving us in the care of your patient. Please call with any questions. Subjective Principal diagnosis: bradycardia, elevated troponin Interval history: Patient continues to be confused. Denies chest pain or SOB. No distress noted. Objective Vital Signs, Last 4 Hours Temp Pulse Resp BP Pulse Ox 03/13/17 06:51 98.0 F 73 16 138/80 94 General: No Apparent Distress, Other (Does not converse well. Looks to to answer questions. Unable to answer questions.) HEENT: Atraumatic, Normocephaly, Mucus Membranes Moist Neck: No JVD, Normal carotid pulses Cardiac: Reg Rate and Rhythm, Normal S1 and S2, No Murmur Lungs: Normal Breath Sounds, No Wheeze, Rales, Rhonchi Neuro: Alert and responsive, No focal deficits noted Abdomen: Soft, Non-Tender Skin: No rashes noted on visualized skin Musculoskeletal: No Chest Wall Tenderness Extremities: No Clubbing, No Cyanosis, No Edema, Normal Pulses Results 03/13/17 06:24 03/13/17 06:24 Lab Results 03/13/17 03/13/17 06:24 06:24 WBC 10.3 Hgb 10.9 L Hct 33.3 L Plt Count 202 Sodium 141 Potassium 3.6 Chloride 107 Carbon Dioxide 26 BUN 29 H Creatinine 1.80 H Glucose 156 H Calcium 8.6 - Imaging and Cardiology Echo: pending - EKG Interpretation EKG results cardiology: personally reviewed Consult Discharge Plan - Plan Referrals: Dejan Moraes MD [Primary Care Provider] -
--- NOTE | 2017-03-13 13:14 | Electrocardiograph Report ---
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
--- NOTE | 2017-03-13 15:37 | Internal Med Progress Note ---
Date of Encounter: 03/13/17 Time of Encounter: 15:34 - Assessment and plan (1) Acute encephalopathy Current Visit: Yes Status: Resolved Assessment and plan: Suspect related to infection of pneumonia/UTI, hypertensive encephalopathy, or worsening dementia. MRI with no acute findings, negative for acute CVA Pending blood culture, sputum culture, s pneumo and legionella ag, mycoplasma lvl, procalcitonin. BP control without aggressive correction. - at home runs SBP 130-140 (2) HTN (hypertension) Current Visit: Yes Status: Chronic Assessment and plan: Continue Norvasc, Held low dose lisinopril do to slight increase in creatinine to 1.8 today Continue Hydralazine IV prn, Qualifiers: Hypertension type: essential hypertension Qualified Code(s): I10 - Essential (primary) hypertension (3) UTI (urinary tract infection) Current Visit: Yes Status: Acute Assessment and plan: Unasyn Qualifiers: Urinary tract infection type: acute cystitis Hematuria presence: without hematuria Qualified Code(s): N30.00 - Acute cystitis without hematuria (4) Pneumonia Current Visit: Yes Status: Acute Assessment and plan: as above, follow-up sputum and blood cultures. Continue Unasyn. May consider repeat chest x-ray after diuresis. Qualifiers: Pneumonia type: due to unspecified organism Laterality: unspecified laterality Lung location: unspecified part of lung Qualified Code(s): J18.9 - Pneumonia, unspecified organism (5) Hematuria Current Visit: Yes Status: Acute Assessment and plan: Resolved, likely related to nephrolithiasis, Urology following, recommendations appreciated. Qualifiers: Hematuria type: gross Qualified Code(s): R31.0 - Gross hematuria (6) Chronic kidney disease (CKD), stage III (moderate) Current Visit: Yes Status: Acute Assessment and plan: Does not appear to have ANGE as patient is currently at baseline renal function. Given multiple issues currently, we will monitor renal function closely and renally dose all medications. (7) Bradycardia Current Visit: Yes Status: Acute Assessment and plan: Evaluated by Cardiology. Noted that sinus bradycardia with first degree AV block. Will avoid AV dakota blocking agents per recommendations. Echocardiogram f/u (8) Elevated troponin I level Current Visit: Yes Status: Acute Assessment and plan: Likely demand ischemia (9) COPD (chronic obstructive pulmonary disease) Current Visit: No Status: Acute Assessment and plan: Not in acute exacerbation. Qualifiers: COPD type: emphysema Emphysema type: unspecified Qualified Code(s): J43.9 - Emphysema, unspecified (10) Hx of CABG Current Visit: No Status: Acute (11) Diabetes Current Visit: No Status: Chronic Assessment and plan: Diabetic diet ISS Qualifiers: Diabetes mellitus type: type 2 Diabetes mellitus complication status: without complication Diabetes mellitus terminal operations manager insulin use: unspecified terminal operations manager insulin use status Qualified Code(s): E11.9 - Type 2 diabetes mellitus without complications (12) Weakness Current Visit: Yes Status: Acute Assessment and plan: On discharge patient to get [facility] with: Nursing Aid Physical therapy Occupational therapy (13) Fluid overload Current Visit: Yes Status: Acute Assessment and plan: Lasix 20 mg IV x1 today Qualifiers: Hypervolemia type: unspecified Qualified Code(s): E87.70 - Fluid overload, unspecified (14) Staghorn calculus Current Visit: Yes Status: Acute Assessment and plan: Evaluation by Urology, recommendations appreciated. - Subjective Interval history: present at bedside. She states he is near his baseline mental status. Per , weakness is still present. Patient has no complaints. He denies chest pain, abdominal pain, n/v, fevers/chills, SOB - Constitutional Vitals: Temp Pulse Resp BP Pulse Ox 96.7 F L 76 16 131/81 97 03/13/17 15:19 03/13/17 15:19 03/13/17 15:19 03/13/17 15:19 03/13/17 15:19 Exam: Gen: NAD, AAOx2 CVS: RRR Lungs: good aeration of all lung veliz, no wheezing +rales at bases Abd: NT/ND, soft, normal bowel sounds Ext: no edema Internal Medicine: Result - Labs CBC & Chem 7: 03/13/17 06:24 03/13/17 06:24 Labs: Short CBC 03/13/17 Range/Units 06:24 WBC 10.3 (4.3-11.1) K/mcL Hgb 10.9 L (12.9-16.9) g/dL Hct 33.3 L (37.5-50.1) % Plt Count 202 (140-400) K/mcL Neutrophils # 8.8 (1.6-8.9) K/mcL BMP 03/13/17 06:24 Sodium 141 Potassium 3.6 Chloride 107 Carbon Dioxide 26 BUN 29 H Creatinine 1.80 H Glucose 156 H Calcium 8.6 - ABG Interpretation ABG results: PT/INR, D-dimer PT 13.1 Seconds (9.4-12.1) H 03/11/17 16:08 - Impressions Impressions Abdomen/Pelvis CT 03/12/17 17:30 IMPRESSION: Moderate right pelvocaliectasis with bulky right nephrolithiasis. Lack of hydroureter and abrupt decompression of the right renal pelvis at the UPJ raises a question of underlying stricture. Difficult to exclude superimposed pyelonephritis given asymmetrically increased surrounding right renal inflammatory stranding. No drainable perinephric fluid collection. No left nephrolithiasis or hydronephrosis. Cholelithiasis without evidence of cholecystitis. Diverticulosis without evidence of diverticulitis. Small hiatus hernia. D/ / Ankur Yanes / Ankur Yanes Interpreting Provider: Ankur Yanes Echocardiogram 03/13/17 00:00 Impressions: LVEF 55-60%. Normal LV chamber size and function. Left ventricular hypertrophy, which is more prominent along the basal septum. Mild left ventricular diastolic dysfunction. Atypical septal motion consistent with post-operative status. Normal right ventricular structure and function. Mild aortic regurgitation, which was somewhat eccentrically directed along the anterior MV leaflet. Mild-moderate pulmonary hypertension. Estimated RVSP is 44 mmHg. Left Ventricular Wall Motion: Rest Echo Findings All wall segments showed normal motion. Findings: Study Quality * Technically adequate exam. ECG Findings * Sinus rhythm with BBB. Left Ventricle * LVEF 55-60%. * Normal LV chamber size and function. * Left ventricular hypertrophy, which is more prominent along the basal septum. * Mild left ventricular diastolic dysfunction. * Atypical septal motion consistent with post-operative status. Right Ventricle * Normal right ventricular structure and function. Left Atrium * Moderately dilated left atrium. Right Atrium * Moderately dilated right atrium. Interatrial Septum * Interatrial septum not well evaluated. Aortic Valve * Trileaflet aortic valve. * Mildly calcified aortic valve leaflets. * No aortic stenosis. * Mild aortic regurgitation. Mitral Valve * Mildly thickened mitral valve leaflets. * No mitral regurgitation. * No mitral stenosis. Tricuspid Valve * Normal tricuspid valve structure and function. * Trace tricuspid regurgitation. * Mild-moderate pulmonary hypertension. * Estimated RVSP is 44 mmHg. * Estimated RA pressure is 5 mmHg. Pulmonic Valve * Normal pulmonic valve structure and function. * No pulmonic regurgitation. Aorta * Normally sized aortic root. Pericardium * The pericardium appears normal. IVC * Normal IVC dimensions and inspiratory collapse. Pulmonary Artery * Normal visualized portions of the main pulmonary artery. Brain MRI 03/13/17 14:08 IMPRESSION: No acute intracranial abnormality. 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 Scattered small old lacunar infarcts. Moderate parenchymal volume loss. Moderate chronic microvascular disease. Sinus mucosal disease and mild right mastoid effusion. D/ / Henri Austin MD / Henri Autsin MD Interpreting Provider: Henri Austin MD Consult Discharge Plan - Plan Referrals: Dejan Moraes MD [Primary Care Provider] -
[2017-03-13] MEDS ORDERED: Furosemide 20 MG/2 ML VIAL IVP ONE (15:47)
[2017-03-13] MEDS: Ampicillin/Sulbactam 1,500 MG in 0.9 % Sodium Chloride Mini Bag 100 ML IVPB SCH ×2 (18:09→23:58)
[2017-03-13] MEDS: Gabapentin 100 MG CAPSULE PO SCH (21:27)
[2017-03-13] MEDS ORDERED: Saline Nasal Spray 44 ML BOTTLE NS PRN (22:16)
[2017-03-14 05:00] LABS: Basophils % 0.3 %; Eosinophils # 0.4 K/mcL (0.0-0.6); Eosinophils % 3.7 %; Hematocrit 33.9 % (37.5-50.1); Hemoglobin 10.6 g/dL (12.9-16.9); Immature Granulocytes % 0.3 % (0-4); Lymphocytes # 0.8 K/mcL (0.6-4.6); Lymphocytes % 7.9 %; Mean Corpuscular HGB Conc 31.3 g/dL (31.6-35.5); Mean Corpuscular Hemoglobin 26.8 pg (28.0-33.3); Mean Corpuscular Volume 85.6 fL (83.0-100.0); Mean Platelet Volume 10.8 fL (9.4-12.4); Monocytes # 0.5 K/mcL (0.0-1.3); Monocytes % 5.2 %; Neutrophils # 7.9 K/mcL (1.6-8.9); Platelet Count 207 K/mcL (140-400); Red Blood Count 3.96 M/mcL (4.19-5.50); Red Cell Distribution Width 13.6 % (11.5-14.5); Segmented Neutrophils % 82.6 %
[2017-03-14] MEDS: Ampicillin/Sulbactam 1,500 MG in 0.9 % Sodium Chloride Mini Bag 100 ML IVPB SCH ×3 (05:06→17:56)
[2017-03-14 05:20] LABS: Calcium 8.5 mg/dL (8.6-10.3); Potassium 3.6 mEq/L (3.5-5.1)
[2017-03-14] MEDS ORDERED: *HR* Etomidate 40 MG/20 ML VIAL IVP ONE (07:26)
[2017-03-14] MEDS ORDERED: Lidocaine -MPF 2% 2 ML VIAL ONE ×2 (07:26→07:29)
[2017-03-14] MEDS ORDERED: *HR* Midazolam HCl 2 MG/2 ML VIAL ONE (07:27)
[2017-03-14] MEDS ORDERED: *HR* FentaNYL (PF) 100 MCG/2 ML VIAL ONE (07:27)
[2017-03-14] MEDS ORDERED: *HR* Propofol 200 MG/20 ML VIAL IVP ONE (07:28)
[2017-03-14] MEDS ORDERED: Acetaminophen IV 1,000 MG/100 ML INFUS..BTL ONE (07:32)
[2017-03-14] MEDS ORDERED: Famotidine 20 MG/2 ML VIAL ONE (07:32)
[2017-03-14] MEDS ORDERED: *HR* PHENYLEPHRINE 1,000 MCG/10 ML SYRINGE IVP ONE (07:34)
--- NOTE | 2017-03-14 07:46 | Anesthesia Evaluation PreOp ---
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: Denies Any Significant HX, CVA, Other (dementia w/ mental status change) Other Medical History: Renal (kidney stonees), Diabetes Type II Anesthesia History: No Prior Anesthetic Complications, Past Anesthesia Alcohol Use: none Drug use: none Medications and Allergies Aspirin Enteric Coated [Aspirin EC] 81 mg PO QAM 11/27/14 [History] ClonazePAM [Klonopin] 0.5 mg PO BID 11/27/14 [History] Clopidogrel [Plavix] 75 mg PO QAM 11/27/14 [History] Ergocalciferol (VITAMIN D2) [Vitamin D2 (50,000 UNIT)] 50,000 unit PO MO [History] Gabapentin [Neurontin] 100 mg PO HS 11/27/14 [History] Hydrocodone/Acetaminophen [[place] 5-325 Tablet] 1 each PO DAILY PRN 11/27/14 [ History] LevETIRAcetam [Keppra] 1,000 mg PO QPM 11/27/14 [History] LevETIRAcetam [Keppra] 500 mg PO QAM 11/27/14 [History] Simvastatin [Zocor] 10 mg PO QPM 11/27/14 [History] Tamsulosin [Flomax] 0.8 mg PO QAM 11/27/14 [History] Lisinopril [Zestril] 5 mg PO BID 03/11/17 [History] 3 Allergy/AdvReac Type Severity Reaction Status Date / Time Sulfa (Sulfonamide Allergy Anaphylaxis Verified 03/11/17 15:40 Antibiotics) - Meds/Allergy Pre-op Review Medications Reviewed: Yes Allergies Reviewed: Yes Beta Blockers on Current Med List: No Anesthesia Results - Labs 03/14/17 04:22 03/14/17 04:22 Laboratory Results WBC 9.6 K/mcL (4.3-11.1) 03/14/17 04:22 RBC 3.96 M/mcL (4.19-5.50) L 03/14/17 04:22 Hgb 10.6 g/dL (12.9-16.9) L 03/14/17 04:22 Hct 33.9 % (37.5-50.1) L 03/14/17 04:22 MCV 85.6 fL (83.0-100.0) 03/14/17 04:22 MCH 26.8 pg (28.0-33.3) L 03/14/17 04:22 MCHC 31.3 g/dL (31.6-35.5) L 03/14/17 04:22 RDW 13.6 % (11.5-14.5) 03/14/17 04:22 Plt Count 207 K/mcL (140-400) 03/14/17 04:22 MPV 10.8 fL (9.4-12.4) 03/14/17 04:22 Immature Gran % 0.3 % (0-4) 03/14/17 04:22 Seg Neutrophils % 82.6 % 03/14/17 04:22 Lymphocytes % 7.9 % 03/14/17 04:22 Monocytes % 5.2 % 03/14/17 04:22 Eosinophils % 3.7 % 03/14/17 04:22 Basophils % 0.3 % 03/14/17 04:22 Neutrophils # 7.9 K/mcL (1.6-8.9) 03/14/17 04:22 Lymphocytes # 0.8 K/mcL (0.6-4.6) 03/14/17 04:22 Monocytes # 0.5 K/mcL (0.0-1.3) 03/14/17 04:22 Eosinophils # 0.4 K/mcL (0.0-0.6) 03/14/17 04:22 Basophils # 0.0 K/mcL (0.0-0.2) 03/14/17 04:22 PT 13.1 Seconds (9.4-12.1) H 03/11/17 16:08 INR 1.2 03/11/17 16:08 APTT 30.6 Seconds (26.0-36.0) 03/11/17 16:08 Sodium 138 mEq/L (136-145) 03/14/17 04:22 Potassium 3.6 mEq/L (3.5-5.1) 03/14/17 04:22 Chloride 104 mEq/L (98-107) 03/14/17 04:22 Carbon Dioxide 26 mEq/L (23-29) 03/14/17 04:22 BUN 32 mg/dL (8-23) H 03/14/17 04:22 Creatinine 1.74 mg/dL (0.70-1.30) H 03/14/17 04:22 Est GFR ( Amer) 46 (> 60) L 03/14/17 04:22 Est GFR (Non-Af Amer) 38 (> 60) L 03/14/17 04:22 BUN/Creatinine Ratio 18 (6-26) 03/14/17 04:22 Glucose 134 mg/dL (70-105) H 03/14/17 04:22 POC Glucose 176 (58-89) H 03/13/17 11:25 Calculated Osmolality 295 (280-300) 03/14/17 04:22 Calcium 8.5 mg/dL (8.6-10.3) L 03/14/17 04:22 Magnesium 1.9 mg/dL (1.6-2.6) 03/12/17 00:11 Total Bilirubin 0.7 mg/dL (0.3-1.0) 03/11/17 16:08 Direct Bilirubin 0.2 mg/dL (0.0-0.2) 03/11/17 16:08 Indirect Bilirubin 0.5 mg/dL (0.0-1.2) 03/11/17 16:08 AST 18 Units/L (13-39) 03/11/17 16:08 ALT 12 Units/L (7-52) 03/11/17 16:08 Alkaline Phosphatase 52 Units/L (34-104) 03/11/17 16:08 Creatine Kinase 27 Units/L (30-223) L 03/11/17 16:08 Troponin I 0.05 ng/mL (< 0.04) H* 03/12/17 07:07 B-Natriuretic Peptide 1239 pg/mL (Less than 100) H 03/12/17 00:11 Serum Total Protein 7.6 g/dL (6.4-8.9) 03/11/17 16:08 Albumin 3.9 g/dL (3.5-5.7) 03/11/17 16:08 Globulin 3.7 g/dL (2.4-3.5) H 03/11/17 16:08 Albumin/Globulin Ratio 1.1 (1.1-2.2) 03/11/17 16:08 Triglycerides 80 mg/dL (< 150) 03/12/17 00:11 Cholesterol 95 mg/dL (< 200) 03/12/17 00:11 LDL Cholesterol, Calc 55 mg/dL (0-99) 03/12/17 00:11 VLDL Cholesterol, Calc 16 mg/dL (< 31) 03/12/17 00:11 HDL Cholesterol 24 mg/dL (40-59) L 03/12/17 00:11 Cholesterol/HDL Ratio 4.0 (0-4.9) 03/12/17 00:11 Lipase 17 Units/L (11-82) 03/11/17 16:08 TSH 0.806 mcIU/mL (0.340-5.600) 03/11/17 16:08 Urine Color Yellow (Yellow) 03/11/17 16:19 Urine Clarity Cloudy (Clear) A 03/11/17 16:19 Urine pH 6.0 pH Units (5.0-8.0) 03/11/17 16:19 Ur Specific [place] 1.017 (1.010-1.025) 03/11/17 16:19 Urine Protein 30 mg/dL (Neg-Trace) H 03/11/17 16:19 Urine Glucose (UA) Normal mg/dL (Normal) 03/11/17 16:19 Urine Ketones Negative mg/dL (Negative) 03/11/17 16:19 Urine Blood Large (Negative) H 03/11/17 16:19 Urine Nitrite Negative (Negative) 03/11/17 16:19 Urine Bilirubin Negative (Negative) 03/11/17 16:19 Urine Urobilinogen Normal mg/dL (Normal) 03/11/17 16:19 Ur Leukocyte Esterase Large (Negative) H 03/11/17 16:19 Urine Microscopic RBC 5-15 per hpf (0-3) H 03/11/17 16:19 Urine Microscopic WBC TNTC per hpf (0-3) H 03/11/17 16:19 Ur Squamous Epith Cells Many per lpf (None-Few) H 03/11/17 16:19 Urine Bacteria Few per hpf (None-Few) 03/11/17 16:19 Hyaline Casts None Seen per lpf (None-Few) 03/11/17 16:19 Ur Culture Indicated? NO. (NO) 03/11/17 16:19 Salicylates < 5.0 mg/dL (15.0-30.0) L 03/12/17 14:47 Acetaminophen < 1.0 mcg/mL (10-30) L 03/12/17 14:47 Specimen Rejected Volume 03/12/17 06:19 Impressions Chest X-Ray 03/11/17 15:59 IMPRESSION: Low lung volumes with features of pulmonary vascular congestion and edema. Difficult to exclude superimposed aspiration or pneumonia which could be present in the appropriate clinical context. D/ / Ankur Yanes / Ankur Yanes Interpreting Provider: Ankur Yanes Head CT 03/11/17 15:59 IMPRESSION: No acute intracranial abnormality. Cerebral atrophy. Chronic small vessel ischemic changes. Remote right temporoparietal infarct. D/ / 03/11/2017 16:59:02 Nneka Lomeli MD / Danelle Gonzalez Interpreting Provider: Nneka Lomeli MD Abdomen/Pelvis CT 03/12/17 17:30 IMPRESSION: Moderate right pelvocaliectasis with bulky right nephrolithiasis. Lack of hydroureter and abrupt decompression of the right renal pelvis at the UPJ raises a question of underlying stricture. Difficult to exclude superimposed pyelonephritis given asymmetrically increased surrounding right renal inflammatory stranding. No drainable perinephric fluid collection. No left nephrolithiasis or hydronephrosis. Cholelithiasis without evidence of cholecystitis. Diverticulosis without evidence of diverticulitis. Small hiatus hernia. D/ / Ankur Yanes / Ankur Yanes Interpreting Provider: Ankur Yanes Echocardiogram 03/13/17 00:00 Impressions: LVEF 55-60%. Normal LV chamber size and function. Left ventricular hypertrophy, which is more prominent along the basal septum. Mild left ventricular diastolic dysfunction. Atypical septal motion consistent with post-operative status. Normal right ventricular structure and function. Mild aortic regurgitation, which was somewhat eccentrically directed along the anterior MV leaflet. Mild-moderate pulmonary hypertension. Estimated RVSP is 44 mmHg. Left Ventricular Wall Motion: Rest Echo Findings All wall segments showed normal motion. Findings: Study Quality * Technically adequate exam. ECG Findings * Sinus rhythm with BBB. Left Ventricle * LVEF 55-60%. * Normal LV chamber size and function. * Left ventricular hypertrophy, which is more prominent along the basal septum. * Mild left ventricular diastolic dysfunction. * Atypical septal motion consistent with post-operative status. Right Ventricle * Normal right ventricular structure and function. Left Atrium * Moderately dilated left atrium. Right Atrium * Moderately dilated right atrium. Interatrial Septum * Interatrial septum not well evaluated. Aortic Valve * Trileaflet aortic valve. * Mildly calcified aortic valve leaflets. * No aortic stenosis. * Mild aortic regurgitation. Mitral Valve * Mildly thickened mitral valve leaflets. * No mitral regurgitation. * No mitral stenosis. Tricuspid Valve * Normal tricuspid valve structure and function. * Trace tricuspid regurgitation. * Mild-moderate pulmonary hypertension. * Estimated RVSP is 44 mmHg. * Estimated RA pressure is 5 mmHg. Pulmonic Valve * Normal pulmonic valve structure and function. * No pulmonic regurgitation. Aorta * Normally sized aortic root. Pericardium * The pericardium appears normal. IVC * Normal IVC dimensions and inspiratory collapse. Pulmonary Artery * Normal visualized portions of the main pulmonary artery. Brain MRI 03/13/17 14:08 IMPRESSION: No acute intracranial abnormality. 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 Scattered small old lacunar infarcts. Moderate parenchymal volume loss. Moderate chronic microvascular disease. Sinus mucosal disease and mild right mastoid effusion. D/ / Henri Austin MD / Henri Austin MD Interpreting Provider: Henri Austin MD - Imaging EKG: image reviewed (48bpm Type I 2nd degree AVBlock, Inf MS probably old) Anesthesia Exam Vital Signs Temp Pulse Resp BP Pulse Ox 03/14/17 05:16 98.1 F 71 17 150/80 94 03/13/17 23:51 99.3 F 84 17 149/83 92 03/13/17 19:18 97.5 F L 70 18 166/64 92 03/13/17 15:19 96.7 F L 76 16 131/81 97 03/13/17 10:39 97.5 F L 70 16 114/72 94 Intake and Output 03/13/17 03/13/17 03/14/17 15:59 23:59 07:59 Intake Total 700 / 700 450 / 450 Output Total 250 / 250 350 / 350 Balance 450 / 450 100 / 100 Intake: IV Fluids 200 / 200 200 / 200 Unasyn 1,500 mg In 0.9 % Sodium 100 / 100 200 / 200 Chloride (Mini-Bag +) 100 ML @ 200 mls/hr IVPB Q6HR RODRIGUEZ Rx#: [id number] Unasyn 3,000 MG In 0.9 % Sodium 100 / 100 Chloride (Mini-Bag +) 100 ML @ 200 mls/hr IVPB Q6HR RODRIGUEZ Rx#: [id number] Oral 500 / 500 250 / 250 Output: Urine 250 / 250 350 / 350 Other: Stool Size Small Stool Consistency formed Stool Color Brown # Voids 1 Blood Glucose* 176 166 121 - HEENT Pupil (Motor): Pupils equal, EOMI Mallampati: II Teeth: Edentulous Oral Opening: Greater than 3 - PROFESSOR OF SPORT MANAGEMENT LOC: Disoriented PROFESSOR OF SPORT MANAGEMENT Motor: Normal RUE, Normal LUE, Normal RLE, Normal LLE, Normal Face PROFESSOR OF SPORT MANAGEMENT Sensory: Normal: RUE, LUE, RLE, LLE, Face - Cardiac Rhythm: Regular Murmur: None - Pulmonary Breath Sounds: bilateral Clear Respiratory Effort: Symmetrical Anesthesia Assess/Plan ASA Score: 3 Modified Sarthak Scale for Level of Consciousness: Cooperative, oriented, and tranquil Anesthetic Plan: General Monitoring Plan: Standard Monitors Recovery Plan: PACU Anes Supervising Prov Stmt: Pt seen/evalutaed, R&B Discussed, question answered and consent obtained. Elena Noe MD
[2017-03-14] MEDS ORDERED: Isovue-300 50 ML VIAL IVP ONE (08:23)
--- NOTE | 2017-03-14 08:49 | Operative Note ---
Date of procedure: 03/14/17 Pre-op diagnosis: staghorn right calculi with hydronephrosis Post-op diagnosis: same Procedure: cystoscopy with right retrograde pyelogram and ureteral stent placement Urethral dilation Anesthesia: JOELA Surgeon: Andrea Umaña Was there an payroll assistant present: No Estimated blood loss (cc): 0 Specimen: none Condition: stable Disposition: PACU Procedure in Detail: PROCEDURE IN DETAIL: Patient was taken back to the operating room, positioned supine on the operating table. Anesthesia was applied without complication. They were moved into dorsal lithotomy. Careful attention was maintained to cushion all pressure points for patient's safety. They were prepped and draped in sterile fashion. Time-out was performed with the proper patient and procedure. Patient had had evidence of reconstruction of his urethral meatus along with shaft skin anastomosed on the ventral aspect up to the meatus. It appeared that his urethral meatus was a pinpoint opening. [place] sounds were used to dilate up to 26 [place]. At that point I was able to place a 21-[place]ones[place] rigid cystoscope was inserted into the bladder without difficulty. Systematic examination of bladder revealed no abnormalities. The right ureteral orifice was cannulated using a 5-[place] ureteral Catheter and a retrograde pyelogram was performed using Isovue. Multiple filling defects were seen consistent with the CT scan. At that point, a zip wire was placed through the 5-[place] and confirmed in the renal pelvis with fluoroscopy. A 4.8 x 26 ureteral stent was placed over the zip wire under fluoroscopy without complication. I was able to pass the stent into the upper pole which appeared to be the area of maximum hydronephrosis. No string was left attached to the stent. The bladder was drained.
--- NOTE | 2017-03-14 09:47 | Anesthesia Evaluation Post Op ---
Date of Encounter: 03/14/17 Time of Encounter: 09:20 - Vital Signs Vital Signs: Vital Signs/O2 Sat/Glucose, Most Current Temp Pulse Resp BP Pulse Ox 03/14/17 09:15 99.0 F 64 16 123/78 95 03/14/17 09:05 65 16 137/75 92 03/14/17 08:55 63 16 118/68 92 03/14/17 08:45 97.2 F L 60 16 102/60 95 03/14/17 07:00 99.2 F 65 18 124/74 93 - Lungs Lungs: Clear Ascult./Percussion - Airway Airway: Non-obstructed - Cardiovascular Baseline Rhythm - Mental Status Mental Status: Asleep with brisk response to light stimulation - Pain Pain Scale used: García-Padilla (Faces) (0) - Nausea Vomiting Nausea Vomiting: Not Present - Hydration Hydration: Tolerates oral liquids, Has not voided - Discharge PostOp Status: Transfer Patient to floor Anes Supervising Prov Stmt: Pt seen/evaluated, VSS And pt has met criteria for discharge to floor.- MD Hasmukh
[2017-03-14] MEDS ORDERED: Sennosides/Docusate Sodium TABLET PO PRN (09:52)
[2017-03-14] MEDS ORDERED: Naloxone 0.4 MG/ML INJ IVP PRN (09:52)
[2017-03-14] MEDS ORDERED: Saline Nasal Spray 44 ML BOTTLE NS PRN (09:52)
[2017-03-14] MEDS ORDERED: *HR* HYDROcodone/Acet 5/325 mg TABLET PO PRN (09:52)
--- NOTE | 2017-03-14 13:41 | Internal Med Progress Note ---
Date of Encounter: 03/14/17 Time of Encounter: 13:39 - Assessment and plan (1) Acute encephalopathy Current Visit: Yes Status: Resolved Assessment and plan: Suspect related to infection of pneumonia/UTI, hypertensive encephalopathy, or worsening dementia. MRI with no acute findings, negative for acute CVA Pending blood culture, sputum culture, s pneumo and legionella ag, mycoplasma lvl, procalcitonin. BP control without aggressive correction. - at home runs SBP 130-140 Resolved. Likely related to infection and/or hypertension Patient to have C with Nursing, PT/OT at discharge (2) Staghorn calculus Current Visit: Yes Status: Acute Assessment and plan: Status ureteral stent placement 2/3, tolerated well. Post-op management per Urology (3) Fluid overload Current Visit: Yes Status: Acute Assessment and plan: Lasix 20 mg IV x1 today Patient will need additional diuresis but overall improving. Qualifiers: Hypervolemia type: unspecified Qualified Code(s): E87.70 - Fluid overload, unspecified (4) HTN (hypertension) Current Visit: Yes Status: Chronic Assessment and plan: Continue Norvasc, Held low dose lisinopril do to slight increase in creatinine to 1.8 today Continue Hydralazine IV prn, Qualifiers: Hypertension type: essential hypertension Qualified Code(s): I10 - Essential (primary) hypertension (5) Pneumonia Current Visit: Yes Status: Acute Assessment and plan: as above, follow-up sputum and blood cultures. Continue Unasyn. May consider repeat chest x-ray after diuresis. Qualifiers: Pneumonia type: due to unspecified organism Laterality: unspecified laterality Lung location: unspecified part of lung Qualified Code(s): J18.9 - Pneumonia, unspecified organism (6) UTI (urinary tract infection) Current Visit: Yes Status: Acute Assessment and plan: Unasyn Qualifiers: Urinary tract infection type: acute cystitis Hematuria presence: without hematuria Qualified Code(s): N30.00 - Acute cystitis without hematuria (7) Hematuria Current Visit: Yes Status: Resolved Assessment and plan: Resolved, likely related to nephrolithiasis, Urology following, recommendations appreciated. Qualifiers: Hematuria type: gross Qualified Code(s): R31.0 - Gross hematuria (8) Chronic kidney disease (CKD), stage III (moderate) Current Visit: Yes Status: Acute Assessment and plan: Does not appear to have ANGE as patient is currently at baseline renal function. Given multiple issues currently, we will monitor renal function closely and renally dose all medications. (9) Bradycardia Current Visit: Yes Status: Acute Assessment and plan: Evaluated by Cardiology. Noted that sinus bradycardia with first degree AV block. Will avoid AV [place] blocking agents per recommendations. Echocardiogram f/u (10) Elevated troponin I level Current Visit: Yes Status: Acute Assessment and plan: Likely demand ischemia (11) COPD (chronic obstructive pulmonary disease) Current Visit: No Status: Acute Assessment and plan: Not in acute exacerbation. 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 Patient at baseline mental status. He denies chest pain, abdominal pain, n/v, fevers/chills, SOB - Constitutional Vitals: Temp Pulse Resp BP Pulse Ox 98.7 F 65 18 125/74 95 03/14/17 11:41 03/14/17 11:41 03/14/17 11:41 03/14/17 11:41 03/14/17 11:41 General appearance: Present: A&O X 2 Exam: Displays generalized muscle weakness - Head Head exam: Present: atraumatic, normocephalic - Eye Eye exam: Present: PERRL, conjuntiva pink, sclera anicteric Pupils: Present: PERRL - Neck Neck exam general surgery: Present: supple, trachea midline. Absent: lymphadenopathy - Respiratory Respiratory exam: Present: rales. Absent: accessory muscle use, rhonchi, wheezes - Cardiovascular Cardiovascular exam: Present: RRR, +S1, +S2. Absent: diastolic murmur, gallop, rubs, systolic murmur - GI/Abdominal GI/Abdominal exam: Present: normal bowel sounds, soft, no peritoneal signs. Absent: distended, tenderness - Extremities Exam Extremities exam: Present: warm, radial pulses palpable and symmetrical. Absent : calf tenderness, cyanotic, pedal edema - Neurological Exam Neurological exam: Present: CN II-XII intact, oriented X3, no focal deficits. Absent: pronater drift, facial droop, speech deficit - Skin Skin exam: Present: dry, intact Internal Medicine: Result - Labs CBC & Chem 7: 03/14/17 04:22 03/14/17 04:22 Labs: Short CBC 03/14/17 Range/Units 04:22 WBC 9.6 (4.3-11.1) K/mcL Hgb 10.6 L (12.9-16.9) g/dL Hct 33.9 L (37.5-50.1) % Plt Count 207 (140-400) K/mcL Neutrophils # 7.9 (1.6-8.9) K/mcL BMP 03/14/17 04:22 Sodium 138 Potassium 3.6 Chloride 104 Carbon Dioxide 26 BUN 32 H Creatinine 1.74 H Glucose 134 H Calcium 8.5 L - ABG Interpretation ABG results: PT/INR, D-dimer PT 13.1 Seconds (9.4-12.1) H 03/11/17 16:08 - Impressions Impressions Retrograde Pyelogram 03/14/17 08:10 IMPRESSION: Intraprocedural fluoroscopic spot images as above. See separate procedure report for more information. D/ / 03/14/2017 08:52:26 Huber Sweet MD / bcarter Interpreting Provider: Huber Sweet MD Consult Discharge Plan - Plan Referrals: Dejan Moraes MD [Primary Care Provider] -
[2017-03-14] MEDS ORDERED: Furosemide 40 MG/4 ML VIAL IVP ONE (13:43)
[2017-03-14] MEDS ORDERED: levETIRAcetam 250 MG TABLET PO SCH (18:00)
[2017-03-14] MEDS ORDERED: Gabapentin 100 MG CAPSULE PO SCH (21:00)
[2017-03-14] MEDS ORDERED: Melatonin 3 MG TABLET PO PRN (21:24)
[2017-03-14] MEDS: clonazePAM 0.5 MG TABLET PO SCH (22:12)
[2017-03-15] MEDS: Ampicillin/Sulbactam 1,500 MG in 0.9 % Sodium Chloride Mini Bag 100 ML IVPB SCH ×3 (01:01→11:46)
[2017-03-15 06:59] LABS: Basophils # 0.1 K/mcL (0.0-0.2); Basophils % 0.6 %; Eosinophils # 0.9 K/mcL (0.0-0.6); Eosinophils % 9.9 %; Hematocrit 36.9 % (37.5-50.1); Hemoglobin 11.7 g/dL (12.9-16.9); Immature Granulocytes % 0.2 % (0-4); Lymphocytes # 0.8 K/mcL (0.6-4.6); Lymphocytes % 8.6 %; Mean Corpuscular HGB Conc 31.7 g/dL (31.6-35.5); Mean Corpuscular Hemoglobin 27.2 pg (28.0-33.3); Mean Corpuscular Volume 85.8 fL (83.0-100.0); Mean Platelet Volume 10.6 fL (9.4-12.4); Monocytes # 0.4 K/mcL (0.0-1.3); Monocytes % 4.8 %; Neutrophils # 6.6 K/mcL (1.6-8.9); Platelet Count 223 K/mcL (140-400); Red Cell Distribution Width 13.6 % (11.5-14.5); Segmented Neutrophils % 75.9 %
[2017-03-15 07:23] LABS: Calcium 8.8 mg/dL (8.6-10.3); Potassium 3.4 mEq/L (3.5-5.1)
[2017-03-15] MEDS: clonazePAM 0.5 MG TABLET PO SCH (08:33)
[2017-03-15] MEDS ORDERED: Aspirin Enteric Coated 81 MG Tablet PO SCH (09:00)
[2017-03-15] MEDS ORDERED: levETIRAcetam 250 MG TABLET PO SCH (09:00)
[2017-03-15] MEDS ORDERED: amLODIPine 5 MG TABLET PO SCH (09:00)
--- NOTE | 2017-03-15 09:13 | Urology Progress Note ---
Date of Encounter: 03/15/17 Time of Encounter: 08:54 - Assessment and Plan (1) Staghorn calculus Current Visit: Yes Status: Acute Assessment and plan: s/p stent. pt improved today. Okay to discharge per urology standpoint. I plan to proceed with percutaneous nephrolithotomy as an outpatient. We'll contact the patient regarding scheduling. No need to make follow-up appointment at this time. Progress Note Subjective: feels better, pain is less Narrative: pt doing much better today. no pain and much more talkative Objective Initial Vital Signs Temp Pulse Resp BP Pulse Ox 98.6 F 64 18 185/67 93 03/11/17 15:34 03/11/17 15:34 03/11/17 15:34 03/11/17 15:34 03/11/17 15:34 - General physical appearance Present: no distress - Labs 03/15/17 06:24 03/15/17 06:24 Diabetes panel 03/15/17 Range/Units 06:24 Sodium 142 (136-145) mEq/L Potassium 3.4 L (3.5-5.1) mEq/L Chloride 105 (98-107) mEq/L Carbon Dioxide 26 (23-29) mEq/L BUN 34 H (8-23) mg/dL Creatinine 1.79 H (0.70-1.30) mg/dL Glucose 127 H (70-105) mg/dL Calcium 8.8 (8.6-10.3) mg/dL Calcium panel 03/15/17 Range/Units 06:24 Calcium 8.8 (8.6-10.3) mg/dL Pituitary panel 03/15/17 Range/Units 06:24 Sodium 142 (136-145) mEq/L Potassium 3.4 L (3.5-5.1) mEq/L Chloride 105 (98-107) mEq/L Carbon Dioxide 26 (23-29) mEq/L BUN 34 H (8-23) mg/dL Creatinine 1.79 H (0.70-1.30) mg/dL Glucose 127 H (70-105) mg/dL Calcium 8.8 (8.6-10.3) mg/dL Adrenal panel 03/15/17 Range/Units 06:24 Sodium 142 (136-145) mEq/L Potassium 3.4 L (3.5-5.1) mEq/L Chloride 105 (98-107) mEq/L Carbon Dioxide 26 (23-29) mEq/L BUN 34 H (8-23) mg/dL Creatinine 1.79 H (0.70-1.30) mg/dL Glucose 127 H (70-105) mg/dL Calcium 8.8 (8.6-10.3) mg/dL Consult Discharge Plan - Plan Referrals: Dejan Moraes MD [Primary Care Provider] -
[2017-03-15] MEDS ORDERED: Furosemide 20 MG/2 ML VIAL IVP ONE (09:56)
[2017-03-15 10:00] LABS: Amphetamines NEGATIVE ng/mL (Cutoff 30); Barbiturates NEGATIVE ng/mL (Cutoff 75); Benzodiazepines NEGATIVE ng/mL (Cutoff 75); Cocaine NEGATIVE ng/mL (Cutoff 30); Methadone NEGATIVE ng/mL (Cutoff 40); Methamphetamines NEGATIVE ng/mL (Cutoff 30); Opiates NEGATIVE ng/mL (Cutoff 30); Phencyclidine NEGATIVE ng/mL (Cutoff 15)
[2017-03-15 11:06] VITALS: BP 124/77
--- NOTE | 2017-03-15 14:21 | Discharge Summary ---
Date of Encounter: 03/15/17 Time of Encounter: 14:18 - Discharge Diagnosis (1) Acute encephalopathy Priority: Primary Status: Resolved (2) Pneumonia Priority: Secondary Status: Acute Qualifiers: Pneumonia type: due to unspecified organism Laterality: unspecified laterality Lung location: unspecified part of lung Qualified Code(s): J18.9 - Pneumonia, unspecified organism (3) Staghorn calculus Priority: Secondary Status: Acute (4) Fluid overload Priority: Secondary Status: Acute Qualifiers: Hypervolemia type: unspecified Qualified Code(s): E87.70 - Fluid overload, unspecified (5) HTN (hypertension) Priority: Secondary Status: Chronic Qualifiers: Hypertension type: essential hypertension Qualified Code(s): I10 - Essential (primary) hypertension (6) UTI (urinary tract infection) Priority: Secondary Status: Acute Qualifiers: Urinary tract infection type: acute cystitis Hematuria presence: without hematuria Qualified Code(s): N30.00 - Acute cystitis without hematuria (7) Hematuria Priority: Secondary Status: Resolved Qualifiers: Hematuria type: gross Qualified Code(s): R31.0 - Gross hematuria (8) Chronic kidney disease (CKD), stage III (moderate) Priority: Secondary Status: Acute (9) Bradycardia Priority: Secondary Status: Acute (10) Elevated troponin I level Priority: Secondary Status: Resolved (11) COPD (chronic obstructive pulmonary disease) Priority: Secondary Status: Acute Qualifiers: COPD type: emphysema Emphysema type: unspecified Qualified Code(s): J43.9 - Emphysema, unspecified (12) Hx of CABG Priority: Secondary Status: Acute (13) Diabetes Priority: Secondary Status: Chronic Qualifiers: Diabetes mellitus type: type 2 Diabetes mellitus complication status: without complication Diabetes mellitus usp insulin use: unspecified stapler coil unit insulin use status Qualified Code(s): E11.9 - Type 2 diabetes mellitus without complications (14) Weakness Priority: Secondary Status: Acute - Discharge Medications Prescriptions: amLODIPine [Norvasc] 5 mg PO DAILY #30 tablet Home Medications: Aspirin Enteric Coated [Aspirin EC] 81 mg PO QAM 11/27/14 [History] ClonazePAM [Klonopin] 0.5 mg PO BID 11/27/14 [History] Clopidogrel [Plavix] 75 mg PO QAM 11/27/14 [History] Ergocalciferol (VITAMIN D2) [Vitamin D2 (50,000 UNIT)] 50,000 unit PO MO [History] Gabapentin [Neurontin] 100 mg PO HS 11/27/14 [History] Hydrocodone/Acetaminophen [[place] 5-325 Tablet] 1 each PO DAILY PRN 11/27/14 [ History] LevETIRAcetam [Keppra] 1,000 mg PO QPM 11/27/14 [History] LevETIRAcetam [Keppra] 500 mg PO QAM 11/27/14 [History] Simvastatin [Zocor] 10 mg PO QPM 11/27/14 [History] Tamsulosin [Flomax] 0.8 mg PO QAM 11/27/14 [History] Lisinopril [Zestril] 5 mg PO BID 03/11/17 [History] Amoxicillin/Clavulanate [Augmentin] 875 mg PO BIDWM #14 tablet 03/15/17 [Rx] Melatonin 3 mg PO HS PRN tablet 03/15/17 [Rx] Naloxone [Narcan] 0.4 mg IVP Q2MIN PRN inj 03/15/17 [Rx] Saline Nasal [place] [[place] Nasal [place]] 2 spray NS AD PRN bottle 03/15/17 [Rx] amLODIPine [Norvasc] 5 mg PO DAILY #30 tablet 03/15/17 [Rx] Allergies/Adverse Reactions: 3 Allergy/AdvReac Type Severity Reaction Status Date / Time Sulfa (Sulfonamide Allergy Anaphylaxis Verified 03/11/17 15:40 Antibiotics) Procedures/tests Complete & Pending: Procedures Performed prior 72 hours Category Date Time Status CT abd pelvis wo no iv no oral [CT] Routine Cat Scan 03/12/17 17:30 Completed MR head/brain wo con [MR] Routine MRI 03/13/17 14:08 Completed EV echocardiogram Routine Y 03/13/17 Completed Date of admission: 03/11/17 18:08 Primary care physician: Dejan Moraes MD Consults: 03/13/17 07:29 Consult to Urology [CONS] Routine Consulting Provider: Urology Viri Reason for Consult: R flank pain, pelvocaliectasis w nephrolithiasis Call Completed: Yes - Patient Status Disposition: Home Health Service Condition: Fair Functional capacity at discharge: wheelchair bound Overall status at discharge: patient is progressing back to baseline - Discharge Instructions Follow Up With: Dejan Moraes MD [Primary Care Provider] - - Diet and Activity Activity: as per physical therapy Diet: diabetic diet, low salt diet Hospital course: Mr. Lombardi is a 81 year old male with history of COPD, CAD, had a history of CABG, diabetes, hypertension, high cholesterol patient was brought in by with multiple complaints patient has been confused some mental status changes also coughing, headache and back pain and increased shortness of breath and more lethargic emergency room evaluation shows patient have UTI , mildly elevated troponin of 0.04 and renal failure creatinine 1.5 chest x-ray is suggestive of pneumonia patient will be admitted for IV antibiotics probably start him on Zosyn blood cultures and iv dehydration. Patient had CT scan which had no acute process. BP went to within MRI was done and acute CVA was ruled out. Patient did have improved mental status with treatment of UTI and Pneumonia. Drug tox was negative. He had HR get to 40s. Cardiology evaluated patient and patient has first degree block. Echocardiogram was done which was unremarkable and no further workup was warranted. Patient was fluid overloaded and diuresed with Lasix. Patient had acute onset of abdominal pain with gross hematuria. CT abdomen pelvis showed staghorn calculi. Urology was consulted and stent was placed 03/14/17. She is scheduled for Urology outpatient arranged to be scheduled. Patient still weak, being sent home with home health services. He was sent home to complete Augmentin. He was uncontrolled with hypertension and is also being discharged with Norvasc 5 mg. - Time Spent with Patient Total time spent providing and/or coordinating discharge services: - Constitutional Vitals: Temp Pulse Resp BP Pulse Ox 98.3 F 67 16 124/77 96 03/15/17 11:05 03/15/17 11:05 03/15/17 11:05 03/15/17 11:05 03/15/17 11:05 General appearance: Present: A&O X 2 Exam: Displays generalized muscle weakness - Head Head exam: Present: atraumatic, normocephalic - Eye Eye exam: Present: PERRL, conjuntiva pink, sclera anicteric Pupils: Present: PERRL - Neck Neck exam general surgery: Present: supple, trachea midline. Absent: lymphadenopathy - Respiratory Respiratory exam: Present: rales. Absent: accessory muscle use, rhonchi, wheezes - Cardiovascular Cardiovascular exam: Present: RRR, +S1, +S2. Absent: diastolic murmur, gallop, rubs, systolic murmur - GI/Abdominal GI/Abdominal exam: Present: normal bowel sounds, soft, no peritoneal signs. Absent: distended, tenderness - Extremities Exam Extremities exam: Present: warm, radial pulses palpable and symmetrical. Absent : calf tenderness, cyanotic, pedal edema - Neurological Exam Neurological exam: Present: CN II-XII intact, oriented X3, no focal deficits. Absent: pronater drift, facial droop, speech deficit - Skin Skin exam: Present: dry, intact
--- NOTE | 2017-03-15 15:19 | Physician Discharge Referral ---
Home Health/Hosp Referral Info Transfer to: Home Health Provider in Charge Post Discharge: PCP - Diagnosis (1) Acute encephalopathy Priority: Primary Status: Resolved (2) Pneumonia Priority: Secondary Status: Acute (3) Staghorn calculus Priority: Secondary Status: Acute (4) Fluid overload Priority: Secondary Status: Acute (5) HTN (hypertension) Priority: Secondary Status: Chronic (6) UTI (urinary tract infection) Priority: Secondary Status: Acute (7) Hematuria Priority: Secondary Status: Resolved (8) Chronic kidney disease (CKD), stage III (moderate) Priority: Secondary Status: Acute (9) Bradycardia Priority: Secondary Status: Acute (10) Elevated troponin I level Priority: Secondary Status: Resolved (11) COPD (chronic obstructive pulmonary disease) Priority: Secondary Status: Acute (12) Hx of CABG Priority: Secondary Status: Acute (13) Diabetes Priority: Secondary Status: Chronic (14) Weakness Priority: Secondary Status: Acute - Respiratory Orders Smoking Cessation: Smoking cessation has been advised. For more information, call the [employer] Tobacco Quit Line at 7-259-UGFO-NOW. - Diet/Nutrition Diet/Nutrition Orders: Cardiac, No Concentrated Sweets - Activity Activity: List: as per physical therapy - Services Needed Following services are medically necessary services: Nursing, Physical Therapy, Occupational Therapy - Transfer Medications Prescriptions: amLODIPine [Norvasc] 5 mg PO DAILY #30 tablet Amoxicillin/Clavulanate [Augmentin] 875 mg PO BIDWM #14 tablet Home Medications: Aspirin Enteric Coated [Aspirin EC] 81 mg PO QAM 11/27/14 [History] ClonazePAM [Klonopin] 0.5 mg PO BID 11/27/14 [History] Clopidogrel [Plavix] 75 mg PO QAM 11/27/14 [History] Ergocalciferol (VITAMIN D2) [Vitamin D2 (50,000 UNIT)] 50,000 unit PO MO [History] Gabapentin [Neurontin] 100 mg PO HS 11/27/14 [History] Hydrocodone/Acetaminophen [[place] 5-325 Tablet] 1 each PO DAILY PRN 11/27/14 [ History] LevETIRAcetam [Keppra] 1,000 mg PO QPM 11/27/14 [History] LevETIRAcetam [Keppra] 500 mg PO QAM 11/27/14 [History] Simvastatin [Zocor] 10 mg PO QPM 11/27/14 [History] Tamsulosin [Flomax] 0.8 mg PO QAM 11/27/14 [History] Lisinopril [Zestril] 5 mg PO BID 03/11/17 [History] Amoxicillin/Clavulanate [Augmentin] 875 mg PO BIDWM #14 tablet 03/15/17 [Rx] Melatonin 3 mg PO HS PRN tablet 03/15/17 [Rx] Naloxone [Narcan] 0.4 mg IVP Q2MIN PRN inj 03/15/17 [Rx] Saline Nasal [place] [[place] Nasal [place]] 2 spray NS AD PRN bottle 03/15/17 [Rx] amLODIPine [Norvasc] 5 mg PO DAILY #30 tablet 03/15/17 [Rx] Allergies/Adverse Reactions: 3 Allergy/AdvReac Type Severity Reaction Status Date / Time Sulfa (Sulfonamide Allergy Anaphylaxis Verified 03/11/17 15:40 Antibiotics) Certification: Further, I certify that my clinical findings support that this patient is homebound (i.e. absences from home require considerable and taxing effort and are for medical reasons or religion services or infrequently or short duration when for other reasons) because: Homebound Reason: Patient requires assistance of a person or device to safely leave home, Leaving home requires considerable and taxing effort due to condition Attestation: My signature below is to certify that this patient is under my care and that I, or nurse practitioner, or a physician's engineering inspection assistant working with me, has a face-to -face encounter with this patient.
[2017-03-16 08:56] LABS: Mycoplasma pneumoniae IgG 0.05 U/L (<=0.09)
== END 2017-03-15 16:00 | disposition home health service (06) | DRG 177 ==
LOC: 2ANU 15:25 → EMEROO 15:25 → 2ANU 18:30
PROVIDERS: ADMIT Nurse Practitioner Family; ATTEND Internal Medicine

== ENCOUNTER 2017-05-15 00:25 | Inpatient (IN) ==
[2017-05-15] MEDS ORDERED: 0.9 % Sodium Chloride 1,000 ML IVC ONE (00:54)
--- NOTE | 2017-05-15 00:56 | Emergency Department Note ---
Disposition Clinical Impression: Hemorrhage from nephrostomy tube, Elevated troponin Sepsis Qualifiers: Sepsis type: sepsis due to unspecified organism Qualified Code(s): A41.9 - Sepsis, unspecified organism Chronic kidney disease Qualifiers: Chronic kidney disease stage: unspecified stage Qualified Code(s): N18.9 - Chronic kidney disease, unspecified UTI (urinary tract infection) Qualifiers: Urinary tract infection type: site unspecified Hematuria presence: with hematuria Qualified Code(s): N39.0 - Urinary tract infection, site not specified Disposition: Admitted As Inpatient Condition: Fair Time of Disposition: 03:16 General Adult HPI - General Stated complaint: bleeding from drainage tube Time Seen by Provider: 05/15/17 00:34 Source: patient Mode of arrival: ambulatory Limitations: no limitations Nursing Notes Reviewed: Yes Vital Signs Reviewed: Yes - History of Present Illness HPI Narrative: 81-year-old male with a history of A. fib, CAD on Plavix postoperative from a right nephrostomy tube from staghorn calculi presents for evaluation of bleeding around the tube and drainage site. Patient states it has been oozing since being discharged with noted to have increased oozing with clots today. Patient's also noted blood within the nephrostomy tube. Patient's also been having bloody clots through his urethra. Patient denies any chest pain or shortness of breath. Patient denies any fevers. Patient denies any abdominal pain. No nausea or vomiting. - Related Data Home Medications Medication Instructions Recorded Confirmed Aspirin Enteric Coated [Aspirin EC] 81 mg PO QAM 11/27/14 05/12/17 ClonazePAM [Klonopin] 0.5 mg PO BID 11/27/14 05/12/17 Ergocalciferol (VITAMIN D2) 50,000 unit PO MO 11/27/14 05/12/17 [Vitamin D2 (50,000 UNIT)] Gabapentin [Neurontin] 100 mg PO HS 11/27/14 05/12/17 LevETIRAcetam [Keppra] 1,000 mg PO QPM 11/27/14 05/12/17 LevETIRAcetam [Keppra] 500 mg PO QAM 11/27/14 05/12/17 Simvastatin [Zocor] 10 mg PO QPM 11/27/14 05/12/17 Tamsulosin [Flomax] 0.4 mg PO BID 11/27/14 05/12/17 Lisinopril [Zestril] 5 mg PO BID 03/11/17 05/12/17 Previous Rx's Medication Instructions Recorded Melatonin 3 mg PO HS PRN tablet 03/15/17 HYDROcodone/Acet 5/325 mg [[place] 1 tab PO Q4HR PRN 5 Days #15 tablet 05/13/17 5-325 mg] Insulin LISPRO [HumaLOG] 0 units SQ HS vial 05/13/17 Insulin LISPRO [HumaLOG] 0 units SQ TIDAC vial 05/13/17 cephALEXin [Keflex] 500 mg PO BID #10 capsule 05/13/17 Allergies Allergy/AdvReac Type Severity Reaction Status Date / Time Sulfa (Sulfonamide Allergy Rash Verified 05/12/17 07:34 Antibiotics) All systems ED: reviewed and negative except as stated. Constitutional: Denies: fever Cardiovascular: Denies: chest pain Respiratory: Denies: cough Gastrointestinal: Denies: abdominal pain, nausea, vomiting Past Medical History - Past Medical History Source: patient, obtained from family Medical history: Reports: arthritis, COPD, coronary artery disease, diabetes, hypertension, kidney stones, myocardial infarction Surgical history: Reports: carotid endarterectomy, coronary bypass (CABG) Psychiatric history: Reports: no psych history - Social History Smoking Status: Former smoker Smokeless Tobacco Status: No Alcohol use: Reports: none Drug use: Reports: none Physical Exam - General Limitations: no limitations General appearance: alert, in no apparent distress - Head Head exam: atraumatic, normocephalic, normal inspection - Eye Eye exam: Present: normal appearance - ENT ENT exam: normal exam - Neck Neck exam: Present: normal inspection - Chest Chest inspection: Present: normal inspection - Respiratory Respiratory exam: Present: normal lung sounds bilaterally. Absent: respiratory distress - Cardiovascular Cardiovascular exam: Present: regular rate, normal rhythm - Abdominal Exam Abdominal exam: Present: soft, Non-Tender, other (Right-sided nephrostomy tube in place. There is dark nonpulsatile bleeding with clots within the dressing as well as slight oozing from around the insertion site. Is also blood within the tube.) - Extremities Exam Extremities exam: Present: normal inspection - Back Exam Back exam: Present: normal inspection - Neurological Exam Neurological exam: Present: alert - Skin Skin exam: Present: warm, dry, intact, normal color Course Course Narrative: Patient seen and examined. Patient has concerns for postoperative delayed bleeding. Patient will get basic labs including coagulation studies type and screen. Patient will also get a CT of the abdomen and pelvis. Patient does have a fever with a potential source of infection the urine. Will discuss the case with the on-call urologist. Disposition pending. - Reevaluation(s) Reevaluation #1: Patient's resting comfortably. Family at bedside states the patient has been complaining of a nonproductive cough that started today. Family also states the patient had decrease drainage from his nephrostomy tube. Time: 02:29 Reevaluation #2: Patient seen and examined. Patient appears resting comfortably. Patient denies any chest pain or abdominal pain. Patient's goals patient's family is at bedside. Patient's family states that he has been taking his Plavix post OR course. Updated on plan of care. Time: 03:27 - Consultations Consultation #1: Spoke with Dr. Martinez who states that they will evaluate the patient in the morning and admit to the hospitalist. Time: 03:15 Vital Signs Temperature 102.2 F H 05/15/17 01:38 Pulse Rate 93 05/15/17 01:38 Respiratory Rate 20 05/15/17 01:38 Blood Pressure 119/62 05/15/17 01:38 O2 Sat by Pulse Oximetry 98 05/15/17 01:38 Temperature 102.2 F H 05/15/17 01:38 Pulse Rate 93 05/15/17 01:38 Respiratory Rate 20 05/15/17 01:38 Blood Pressure 119/62 05/15/17 01:38 O2 Sat by Pulse Oximetry 98 05/15/17 01:38 Oxygen Delivery Oxygen Delivery Room Air Medical Decision Making - [facility] Narrative Medical decision making narrative: 81-year-old male since for evaluation of bleeding at the nephrostomy site. Patient did have dressing soaked bleeding. Patient had a recent nephrostomy tube placed a couple days ago. Patient's labs show that he is not significantly anemic from prior evaluations. Patient had CT scan of the abdomen pelvis which showed renal hemorrhage and hematoma. Patient's triage vitals were concerning for an infection likely source in the urine. Patient was started on broad-spectrum antibiotics which would cover Pseudomonas as there is concerns for plastic. Patient also had an elevated troponin with no chest pain and no acute EKG changes. Patient had elevated troponins in the past. Likely demand ischemia. Patient was not given aspirin or anticoagulation given the concerns for bleeding. Discussed the case with the on -call urologist who state they will evaluate the patient in the morning. Patient does meet SIRS criteria with sepsis and the patient was started on broad -spectrum antibiotics. Cultures were obtained. Patient was not given a 30 mL/ kg IV fluid given hemodynamic status is stable in the setting of an elevated troponin and unknown cardiopulmonary function. - Lab Data Lab results reviewed: Yes I reviewed the patient's lab results. Result diagrams: 05/15/17 01:56 05/15/17 01:56 Lab Results 05/15/17 05/15/17 05/15/17 Range/Units 01:56 01:56 01:56 WBC (4.3-11.1) K/mcL RBC (4.19-5.50) M/mcL Hgb (12.9-16.9) g/dL Hct (37.5-50.1) % MCV (83.0-100.0) fL MCH (28.0-33.3) pg MCHC (31.6-35.5) g/dL RDW (11.5-14.5) % Plt Count (140-400) K/mcL MPV (9.4-12.4) fL Immature Gran % (0-4) % Seg Neutrophils % % Lymphocytes % % Monocytes % % Eosinophils % % Basophils % % Neutrophils # (1.6-8.9) K/mcL Lymphocytes # (0.6-4.6) K/mcL Monocytes # (0.0-1.3) K/mcL Eosinophils # (0.0-0.6) K/mcL Basophils # (0.0-0.2) K/mcL PT 13.4 H (9.4-12.1) Seconds INR 1.2 APTT 26.5 (26.0-36.0) Seconds Sodium 137 (136-145) mEq/L Potassium 4.2 (3.5-5.1) mEq/L Chloride 104 (98-107) mEq/L Carbon Dioxide 27 (23-29) mEq/L BUN 37 H (8-23) mg/dL Creatinine 1.45 H (0.70-1.30) mg/dL Est GFR ( Amer) 56 L (> 60) Est GFR (Non-Af Amer) 47 L (> 60) BUN/Creatinine Ratio 26 (6-26) Glucose 179 H (70-105) mg/dL Calculated Osmolality 297 (280-300) Lactic Acid (0.5-2.2) mmol/L Calcium 8.5 L (8.6-10.3) mg/dL Total Bilirubin 0.9 (0.3-1.0) mg/dL AST 20 (13-39) Units/L ALT 6 L (7-52) Units/L Alkaline Phosphatase 41 (34-104) Units/L Troponin I (< 0.04) ng/mL Serum Total Protein 6.5 (6.4-8.9) g/dL Albumin 3.4 L (3.5-5.7) g/dL Globulin 3.1 (2.4-3.5) g/dL Albumin/Globulin Ratio 1.1 (1.1-2.2) Ur Specimen Adequacy Urine Color (Yellow) Urine Clarity (Clear) Urine pH (5.0-8.0) pH Units Ur Specific [place] (1.010-1.025) Urine Protein (Neg-Trace) mg/dL Urine Glucose (UA) (Normal) mg/dL Urine Ketones (Negative) mg/dL Urine Blood (Negative) Urine Nitrite (Negative) Urine Bilirubin (Negative) Urine Urobilinogen (Normal) mg/dL Ur Leukocyte Esterase (Negative) Blood Type A POSITIVE Antibody Screen NEGATIVE 05/15/17 05/15/17 05/15/17 Range/Units 01:56 01:56 02:44 WBC 10.5 (4.3-11.1) K/mcL RBC 3.42 L (4.19-5.50) M/mcL Hgb 10.0 L (12.9-16.9) g/dL Hct 30.7 L (37.5-50.1) % MCV 89.8 (83.0-100.0) fL MCH 29.2 (28.0-33.3) pg MCHC 32.6 (31.6-35.5) g/dL RDW 14.5 (11.5-14.5) % Plt Count 162 (140-400) K/mcL MPV 10.4 (9.4-12.4) fL Immature Gran % 0.5 (0-4) % Seg Neutrophils % 90.9 % Lymphocytes % 3.0 % Monocytes % 5.3 % Eosinophils % 0.2 % Basophils % 0.1 % Neutrophils # 9.5 H (1.6-8.9) K/mcL Lymphocytes # 0.3 L (0.6-4.6) K/mcL Monocytes # 0.6 (0.0-1.3) K/mcL Eosinophils # 0.0 (0.0-0.6) K/mcL Basophils # 0.0 (0.0-0.2) K/mcL PT (9.4-12.1) Seconds INR APTT (26.0-36.0) Seconds Sodium (136-145) mEq/L Potassium (3.5-5.1) mEq/L Chloride (98-107) mEq/L Carbon Dioxide (23-29) mEq/L BUN (8-23) mg/dL Creatinine (0.70-1.30) mg/dL Est GFR ( Amer) (> 60) Est GFR (Non-Af Amer) (> 60) BUN/Creatinine Ratio (6-26) Glucose (70-105) mg/dL Calculated Osmolality (280-300) Lactic Acid 1.4 (0.5-2.2) mmol/L Calcium (8.6-10.3) mg/dL Total Bilirubin (0.3-1.0) mg/dL AST (13-39) Units/L ALT (7-52) Units/L Alkaline Phosphatase (34-104) Units/L Troponin I 1.02 H* (< 0.04) ng/mL Serum Total Protein (6.4-8.9) g/dL Albumin (3.5-5.7) g/dL Globulin (2.4-3.5) g/dL Albumin/Globulin Ratio (1.1-2.2) Ur Specimen Adequacy Urine Color (Yellow) Urine Clarity (Clear) Urine pH (5.0-8.0) pH Units Ur Specific [place] (1.010-1.025) Urine Protein (Neg-Trace) mg/dL Urine Glucose (UA) (Normal) mg/dL Urine Ketones (Negative) mg/dL Urine Blood (Negative) Urine Nitrite (Negative) Urine Bilirubin (Negative) Urine Urobilinogen (Normal) mg/dL Ur Leukocyte Esterase (Negative) Blood Type Antibody Screen 04/06/18 Range/Units 03:11 WBC (4.3-11.1) K/mcL RBC (4.19-5.50) M/mcL Hgb (12.9-16.9) g/dL Hct (37.5-50.1) % MCV (83.0-100.0) fL MCH (28.0-33.3) pg MCHC (31.6-35.5) g/dL RDW (11.5-14.5) % Plt Count (140-400) K/mcL MPV (9.4-12.4) fL Immature Gran % (0-4) % Seg Neutrophils % % Lymphocytes % % Monocytes % % Eosinophils % % Basophils % % Neutrophils # (1.6-8.9) K/mcL Lymphocytes # (0.6-4.6) K/mcL Monocytes # (0.0-1.3) K/mcL Eosinophils # (0.0-0.6) K/mcL Basophils # (0.0-0.2) K/mcL PT (9.4-12.1) Seconds INR APTT (26.0-36.0) Seconds Sodium (136-145) mEq/L Potassium (3.5-5.1) mEq/L Chloride (98-107) mEq/L Carbon Dioxide (23-29) mEq/L BUN (8-23) mg/dL Creatinine (0.70-1.30) mg/dL Est GFR ( Amer) (> 60) Est GFR (Non-Af Amer) (> 60) BUN/Creatinine Ratio (6-26) Glucose (70-105) mg/dL Calculated Osmolality (280-300) Lactic Acid (0.5-2.2) mmol/L Calcium (8.6-10.3) mg/dL Total Bilirubin (0.3-1.0) mg/dL AST (13-39) Units/L ALT (7-52) Units/L Alkaline Phosphatase (34-104) Units/L Troponin I (< 0.04) ng/mL Serum Total Protein (6.4-8.9) g/dL Albumin (3.5-5.7) g/dL Globulin (2.4-3.5) g/dL Albumin/Globulin Ratio (1.1-2.2) Ur Specimen Adequacy Urine Color Red A (Yellow) Urine Clarity Cloudy A (Clear) Urine pH 6.5 (5.0-8.0) pH Units Ur Specific [place] 1.027 H (1.010-1.025) Urine Protein >=300 H (Neg-Trace) mg/dL Urine Glucose (UA) 100 H (Normal) mg/dL Urine Ketones 40 H (Negative) mg/dL Urine Blood Large H (Negative) Urine Nitrite Positive A (Negative) Urine Bilirubin Large H (Negative) Urine Urobilinogen Normal (Normal) mg/dL Ur Leukocyte Esterase Large H (Negative) Blood Type Antibody Screen - Radiology Data Radiology results reviewed: Yes I reviewed the patient's radiology results. Abdomen/Pelvis CT 05/15/17 00:53 IMPRESSION: High attenuation within the right kidney and right renal pelvis almost certainly represents hemorrhage though could represent some residual contrast used at the time of tube placement. There is no evidence for perinephric hematoma. There are now 3 calculi within the urinary bladder. D/ / Pete Ellison MD / Pete Ellison MD Interpreting Provider: Pete Ellison MD - EKG Data EKG #1 EKG attestation: Yes I reviewed and interpreted this EKG. EKG results narrative: Patient has electronic ventricular pacemaker at a rate of 93. There are no signs of scar Boase's criteria. QTC of 479. Left axis deviation. S.B.A.R. - S.B.ABabar Situation: Demographics Background: Presenting Complaint Assessment: Vital Signs, Course and respsone to treatment Recommendation: Barrier(s) to disposition, Recommendation based on pending studies, treatments, or consults S.B.A.Frank Report Given to: Dr. Michelle De Leon Repor Time: 03:26
--- NOTE | 2017-05-15 01:40 | Emergency Department Note ---
Disposition Clinical Impression: Hemorrhage from nephrostomy tube, Sepsis, Elevated troponin, Chronic kidney disease, UTI (urinary tract infection) Disposition: Admitted As Inpatient Condition: Fair General Adult HPI - General Stated complaint: bleeding from drainage tube Time Seen by Provider: 05/15/17 00:34 Source: patient Mode of arrival: ambulatory Limitations: no limitations Nursing Notes Reviewed: Yes Vital Signs Reviewed: Yes - Related Data Home Medications Medication Instructions Recorded Confirmed Aspirin Enteric Coated [Aspirin EC] 81 mg PO QAM 11/27/14 05/15/17 ClonazePAM [Klonopin] 0.5 mg PO BID 11/27/14 05/15/17 Ergocalciferol (VITAMIN D2) 50,000 unit PO MO 11/27/14 05/15/17 [Vitamin D2 (50,000 UNIT)] Gabapentin [Neurontin] 100 mg PO HS 11/27/14 05/15/17 LevETIRAcetam [Keppra] 1,000 mg PO QPM 11/27/14 05/15/17 LevETIRAcetam [Keppra] 500 mg PO QAM 11/27/14 05/15/17 Simvastatin [Zocor] 10 mg PO QPM 11/27/14 05/15/17 Tamsulosin [Flomax] 0.4 mg PO BID 11/27/14 05/15/17 Lisinopril [Zestril] 5 mg PO BID 03/11/17 05/15/17 Clopidogrel [Plavix] 75 mg PO DAILY 05/15/17 05/15/17 Previous Rx's Medication Instructions Recorded Melatonin 3 mg PO HS PRN tablet 03/15/17 HYDROcodone/Acet 5/325 mg [[place] 1 tab PO Q4HR PRN 5 Days #15 tablet 05/13/17 5-325 mg] cephALEXin [Keflex] 500 mg PO BID #10 capsule 05/13/17 Allergies Allergy/AdvReac Type Severity Reaction Status Date / Time Sulfa (Sulfonamide Allergy Rash Verified 05/12/17 07:34 Antibiotics) Constitutional: Denies: fever Cardiovascular: Denies: chest pain Respiratory: Denies: cough Gastrointestinal: Denies: abdominal pain, nausea, vomiting Past Medical History - Past Medical History Medical history: Reports: arthritis, COPD, coronary artery disease, diabetes, hypertension, kidney stones, myocardial infarction Surgical history: Reports: carotid endarterectomy, coronary bypass (CABG) Psychiatric history: Reports: no psych history - Social History Smoking Status: Former smoker Smokeless Tobacco Status: No Alcohol use: Reports: none Drug use: Reports: none Physical Exam - General Limitations: no limitations General appearance: alert, in no apparent distress Course - Reevaluation(s) Reevaluation #1: Saw pt with Dr. Barnard. This is an 81 year-old male with history of CAD on Plavix and kidney stones. He is 2 days s/p nephrostomy placement by Dr. Umaña. He presents with decreased nephrostomy output yesterday and scant bleeding around tube insertion site. On my exam, patient is alert, scant blood to nephrostomy dressing, abdomen benign. Plan labs, CT, consult urology. Time: 01:38 Vital Signs Temperature 102.2 F H 05/15/17 01:38 Pulse Rate 93 05/15/17 01:38 Respiratory Rate 20 05/15/17 01:38 Blood Pressure 119/62 05/15/17 01:38 O2 Sat by Pulse Oximetry 98 05/15/17 01:38 Temperature 98.5 F 05/15/17 05:12 Pulse Rate 76 05/15/17 05:12 Respiratory Rate 16 05/15/17 05:12 Blood Pressure 106/69 05/15/17 05:12 O2 Sat by Pulse Oximetry 95 05/15/17 05:12 Oxygen Delivery Oxygen Delivery Room Air Medical Decision Making - Lab Data Lab results reviewed: Yes I reviewed the patient's lab results. Result diagrams: 05/15/17 01:56 05/15/17 01:56 Lab Results 05/15/17 05/15/17 05/15/17 Range/Units 01:56 01:56 01:56 WBC (4.3-11.1) K/mcL RBC (4.19-5.50) M/mcL Hgb (12.9-16.9) g/dL Hct (37.5-50.1) % MCV (83.0-100.0) fL MCH (28.0-33.3) pg MCHC (31.6-35.5) g/dL RDW (11.5-14.5) % Plt Count (140-400) K/mcL MPV (9.4-12.4) fL Immature Gran % (0-4) % Seg Neutrophils % % Lymphocytes % % Monocytes % % Eosinophils % % Basophils % % Neutrophils # (1.6-8.9) K/mcL Lymphocytes # (0.6-4.6) K/mcL Monocytes # (0.0-1.3) K/mcL Eosinophils # (0.0-0.6) K/mcL Basophils # (0.0-0.2) K/mcL PT 13.4 H (9.4-12.1) Seconds INR 1.2 APTT 26.5 (26.0-36.0) Seconds Sodium 137 (136-145) mEq/L Potassium 4.2 (3.5-5.1) mEq/L Chloride 104 (98-107) mEq/L Carbon Dioxide 27 (23-29) mEq/L BUN 37 H (8-23) mg/dL Creatinine 1.45 H (0.70-1.30) mg/dL Est GFR ( Amer) 56 L (> 60) Est GFR (Non-Af Amer) 47 L (> 60) BUN/Creatinine Ratio 26 (6-26) Glucose 179 H (70-105) mg/dL Calculated Osmolality 297 (280-300) Lactic Acid (0.5-2.2) mmol/L Calcium 8.5 L (8.6-10.3) mg/dL Total Bilirubin 0.9 (0.3-1.0) mg/dL AST 20 (13-39) Units/L ALT 6 L (7-52) Units/L Alkaline Phosphatase 41 (34-104) Units/L Troponin I (< 0.04) ng/mL Serum Total Protein 6.5 (6.4-8.9) g/dL Albumin 3.4 L (3.5-5.7) g/dL Globulin 3.1 (2.4-3.5) g/dL Albumin/Globulin Ratio 1.1 (1.1-2.2) Ur Specimen Adequacy Urine Color (Yellow) Urine Clarity (Clear) Urine pH (5.0-8.0) pH Units Ur Specific [place] (1.010-1.025) Urine Protein (Neg-Trace) mg/dL Urine Glucose (UA) (Normal) mg/dL Urine Ketones (Negative) mg/dL Urine Blood (Negative) Urine Nitrite (Negative) Urine Bilirubin (Negative) Urine Urobilinogen (Normal) mg/dL Ur Leukocyte Esterase (Negative) Blood Type A POSITIVE Antibody Screen NEGATIVE 05/15/17 05/15/17 05/15/17 Range/Units 01:56 01:56 02:44 WBC 10.5 (4.3-11.1) K/mcL RBC 3.42 L (4.19-5.50) M/mcL Hgb 10.0 L (12.9-16.9) g/dL Hct 30.7 L (37.5-50.1) % MCV 89.8 (83.0-100.0) fL MCH 29.2 (28.0-33.3) pg MCHC 32.6 (31.6-35.5) g/dL RDW 14.5 (11.5-14.5) % Plt Count 162 (140-400) K/mcL MPV 10.4 (9.4-12.4) fL Immature Gran % 0.5 (0-4) % Seg Neutrophils % 90.9 % Lymphocytes % 3.0 % Monocytes % 5.3 % Eosinophils % 0.2 % Basophils % 0.1 % Neutrophils # 9.5 H (1.6-8.9) K/mcL Lymphocytes # 0.3 L (0.6-4.6) K/mcL Monocytes # 0.6 (0.0-1.3) K/mcL Eosinophils # 0.0 (0.0-0.6) K/mcL Basophils # 0.0 (0.0-0.2) K/mcL PT (9.4-12.1) Seconds INR APTT (26.0-36.0) Seconds Sodium (136-145) mEq/L Potassium (3.5-5.1) mEq/L Chloride (98-107) mEq/L Carbon Dioxide (23-29) mEq/L BUN (8-23) mg/dL Creatinine (0.70-1.30) mg/dL Est GFR ( Amer) (> 60) Est GFR (Non-Af Amer) (> 60) BUN/Creatinine Ratio (6-26) Glucose (70-105) mg/dL Calculated Osmolality (280-300) Lactic Acid 1.4 (0.5-2.2) mmol/L Calcium (8.6-10.3) mg/dL Total Bilirubin (0.3-1.0) mg/dL AST (13-39) Units/L ALT (7-52) Units/L Alkaline Phosphatase (34-104) Units/L Troponin I 1.02 H* (< 0.04) ng/mL Serum Total Protein (6.4-8.9) g/dL Albumin (3.5-5.7) g/dL Globulin (2.4-3.5) g/dL Albumin/Globulin Ratio (1.1-2.2) Ur Specimen Adequacy Urine Color (Yellow) Urine Clarity (Clear) Urine pH (5.0-8.0) pH Units Ur Specific [place] (1.010-1.025) Urine Protein (Neg-Trace) mg/dL Urine Glucose (UA) (Normal) mg/dL Urine Ketones (Negative) mg/dL Urine Blood (Negative) Urine Nitrite (Negative) Urine Bilirubin (Negative) Urine Urobilinogen (Normal) mg/dL Ur Leukocyte Esterase (Negative) Blood Type Antibody Screen 05/15/17 Range/Units 03:11 WBC (4.3-11.1) K/mcL RBC (4.19-5.50) M/mcL Hgb (12.9-16.9) g/dL Hct (37.5-50.1) % MCV (83.0-100.0) fL MCH (28.0-33.3) pg MCHC (31.6-35.5) g/dL RDW (11.5-14.5) % Plt Count (140-400) K/mcL MPV (9.4-12.4) fL Immature Gran % (0-4) % Seg Neutrophils % % Lymphocytes % % Monocytes % % Eosinophils % % Basophils % % Neutrophils # (1.6-8.9) K/mcL Lymphocytes # (0.6-4.6) K/mcL Monocytes # (0.0-1.3) K/mcL Eosinophils # (0.0-0.6) K/mcL Basophils # (0.0-0.2) K/mcL PT (9.4-12.1) Seconds INR APTT (26.0-36.0) Seconds Sodium (136-145) mEq/L Potassium (3.5-5.1) mEq/L Chloride (98-107) mEq/L Carbon Dioxide (23-29) mEq/L BUN (8-23) mg/dL Creatinine (0.70-1.30) mg/dL Est GFR ( Amer) (> 60) Est GFR (Non-Af Amer) (> 60) BUN/Creatinine Ratio (6-26) Glucose (70-105) mg/dL Calculated Osmolality (280-300) Lactic Acid (0.5-2.2) mmol/L Calcium (8.6-10.3) mg/dL Total Bilirubin (0.3-1.0) mg/dL AST (13-39) Units/L ALT (7-52) Units/L Alkaline Phosphatase (34-104) Units/L Troponin I (< 0.04) ng/mL Serum Total Protein (6.4-8.9) g/dL Albumin (3.5-5.7) g/dL Globulin (2.4-3.5) g/dL Albumin/Globulin Ratio (1.1-2.2) Ur Specimen Adequacy Urine Color Red A (Yellow) Urine Clarity Cloudy A (Clear) Urine pH 6.5 (5.0-8.0) pH Units Ur Specific [place] 1.027 H (1.010-1.025) Urine Protein >=300 H (Neg-Trace) mg/dL Urine Glucose (UA) 100 H (Normal) mg/dL Urine Ketones 40 H (Negative) mg/dL Urine Blood Large H (Negative) Urine Nitrite Positive A (Negative) Urine Bilirubin Large H (Negative) Urine Urobilinogen Normal (Normal) mg/dL Ur Leukocyte Esterase Large H (Negative) Blood Type Antibody Screen - Radiology Data Radiology results reviewed: Yes I reviewed the patient's radiology results. CT abd/pelvis IMPRESSION: High attenuation within the right kidney and right renal pelvis almost certainly represents hemorrhage though could represent some residual contrast used at the time of tube placement. There is no evidence for perinephric hematoma. There are now 3 calculi within the urinary bladder.
[2017-05-15 02:07] LABS: Basophils % 0.1 %; Eosinophils % 0.2 %; Hematocrit 30.7 % (37.5-50.1); Immature Granulocytes % 0.5 % (0-4); Lymphocytes # 0.3 K/mcL (0.6-4.6); Mean Corpuscular HGB Conc 32.6 g/dL (31.6-35.5); Mean Corpuscular Hemoglobin 29.2 pg (28.0-33.3); Mean Corpuscular Volume 89.8 fL (83.0-100.0); Mean Platelet Volume 10.4 fL (9.4-12.4); Monocytes # 0.6 K/mcL (0.0-1.3); Monocytes % 5.3 %; Neutrophils # 9.5 K/mcL (1.6-8.9); Platelet Count 162 K/mcL (140-400); Red Blood Count 3.42 M/mcL (4.19-5.50); Red Cell Distribution Width 14.5 % (11.5-14.5); Segmented Neutrophils % 90.9 %
[2017-05-15 02:13] LABS: INR 1.2; Prothrombin Time 13.4 Seconds (9.4-12.1)
[2017-05-15 02:15] LABS: Activated Partial Thrombo Time 26.5 Seconds (26.0-36.0)
[2017-05-15 02:26] LABS: Albumin 3.4 g/dL (3.5-5.7); Albumin/Globulin Ratio 1.1 (1.1-2.2); Bilirubin,Total 0.9 mg/dL (0.3-1.0); Calcium 8.5 mg/dL (8.6-10.3); Globulin 3.1 g/dL (2.4-3.5); Potassium 4.2 mEq/L (3.5-5.1); Total Protein 6.5 g/dL (6.4-8.9)
[2017-05-15] MEDS ORDERED: Piperacillin/Tazobactam 3.375 GM in 0.9 % Sodium Chloride Mini Bag 100 ML IVPB ONE (03:03)
[2017-05-15] MEDS ORDERED: Piperacillin/Tazobactam 3.375 GM in Water for inj. (sterile) 20 ML 20 ML IVPB ONE (03:30)
[2017-05-15 03:31] LABS: Bilirubin,Urine Large (Negative); Blood,Urine Large (Negative); Clarity,Urine Cloudy (Clear); Color,Urine Red (Yellow); Glucose,Urine (UA) 100 mg/dL (Normal); Ketones,Urine 40 mg/dL (Negative); Leukocyte Esterase,Urine Large (Negative); Nitrite,Urine Positive (Negative); PH,Urine 6.5 pH Units (5.0-8.0); Protein,Urine >=300 mg/dL (Neg-Trace); Specific Gravity,Urine 1.027 (1.010-1.025); Urobilinogen,Urine Normal (Normal)
--- NOTE | 2017-05-15 04:29 | Internal Med History&Physical ---
Date of Encounter: 05/15/17 Time of Encounter: 04:29 Assessment and Plan (1) Severe sepsis Current visit: Yes Status: Acute Patient meets severe sepsis criteria, with HR>90, temp 102.2 F in ED, suspected source of infection, and evidence of organ dysfunction with elevated troponin Pt remains hemodynamically stable Follow sepsis protocol Initial lactate WNL Blood cultures to be drawn prior to antibiotics Zosyn, plan to de-escalate based upon sensitivities (2) UTI (urinary tract infection) Current visit: Yes Status: Acute Sepsis likely secondary due to UTI. Continue Zosyn Qualifiers: Urinary tract infection type: site unspecified Hematuria presence: with hematuria Qualified Code(s): N39.0 - Urinary tract infection, site not specified; R31.9 - Hematuria, unspecified; R31.9 - Hematuria, unspecified (3) NSTEMI (non-ST elevated myocardial infarction) Current visit: Yes Status: Acute NSTEMI. Troponin likely secondary to demand ischemia. Troponin every 63. Continuous telemetry. Hold Anticoagulation at this time due to patient's hematuria. Consult to cardiology, appreciate recs. (4) Gross hematuria Current visit: Yes Status: Acute Gross hematuria, status post postop day 2 nephrostomy tube placements. Urology consult, appreciate recs. (5) Renal hemorrhage, right Current visit: Yes Status: Acute Abdomen/Pelvis CT 05/15/17 00:53 IMPRESSION: High attenuation within the right kidney and right renal pelvis almost certainly represents hemorrhage though could represent some residual contrast used at the time of tube placement. There is no evidence for perinephric hematoma. There are now 3 calculi within the urinary bladder. Urology on consult. (6) CAD (coronary artery disease) Current visit: Yes Status: Acute Hold anticoagulation at this time. See plan above. Cardiology on consult, appreciate recs. Qualifiers: Coronary Disease-Associated Artery/Lesion type: unspecified vessel or lesion type [place] vs. transplanted heart: unspecified whether [place] or transplanted heart Associated angina: without angina Qualified Code(s): I25.10 - Atherosclerotic heart disease of [place] coronary artery without angina pectoris (7) DVT prophylaxis Current visit: Yes Status: Acute EPCD Internal Medicine - H&P: HPI Chief complaint: Hematuria Admitted From: Emergency Dept History of present illness: Mr. Lombardi is a 81 year old male with coronary artery disease on dual antiplatelet therapy, postop day 2 nephrostomy placement for [place] calculi by Dr. Umaña, presenting with nephrostomy output with brisk bleeding which has stopped. Endorses blood from urethral meatus. Endorses offensive smell to urine. Denies left flank pain. Endorses right flank pain. Denies suprapubic pain. Endorses intermittent cough. Denies fever, nausea, vomiting, abdominal pain, chest pain, shortness of breath. Past Med Surg Social Fam HX - Past Medical History Medical history: arthritis, COPD, coronary artery disease, diabetes, hypertension, kidney stones, myocardial infarction Psychiatric history: no psych history - Past Surgical History Surgical History: carotid endarterectomy, coronary bypass (CABG) - Social History Smoking Status: Former smoker Smokeless Tobacco Status: No Alcohol use: none Drug use: none - Family History Father Living Status: Hx Family Cardiac Disorders: Yes Internal Medicine - H&P: Meds Aspirin Enteric Coated [Aspirin EC] 81 mg PO QAM 11/27/14 [History] ClonazePAM [Klonopin] 0.5 mg PO BID 11/27/14 [History] Ergocalciferol (VITAMIN D2) [Vitamin D2 (50,000 UNIT)] 50,000 unit PO MO [History] Gabapentin [Neurontin] 100 mg PO HS 11/27/14 [History] LevETIRAcetam [Keppra] 1,000 mg PO QPM 11/27/14 [History] LevETIRAcetam [Keppra] 500 mg PO QAM 11/27/14 [History] Simvastatin [Zocor] 10 mg PO QPM 11/27/14 [History] Tamsulosin [Flomax] 0.4 mg PO BID 11/27/14 [History] Lisinopril [Zestril] 5 mg PO BID 03/11/17 [History] Melatonin 3 mg PO HS PRN tablet 03/15/17 [Rx] HYDROcodone/Acet 5/325 mg [[place] 5-325 mg] 1 tab PO Q4HR PRN 5 Days #15 tablet 05/13/17 [Rx] cephALEXin [Keflex] 500 mg PO BID #10 capsule 05/13/17 [Rx] Clopidogrel [Plavix] 75 mg PO DAILY 05/15/17 [History] 3 Allergy/AdvReac Type Severity Reaction Status Date / Time Sulfa (Sulfonamide Allergy Rash Verified 05/12/17 07:34 Antibiotics) All Systems PM: A 10-system review of systems was performed and is negative for pertinent findings except as documented above in the HPI. - Constitutional Constitutional: as per HPI - Respiratory Respiratory: as per HPI - Gastrointestinal Gastrointestinal: as per HPI - Genitourinary Genitourinary ROS male: as per HPI - Constitutional Vitals: Temp Pulse Resp BP Pulse Ox 102.2 F H 77 20 100/55 93 05/15/17 01:38 05/15/17 04:27 05/15/17 01:38 05/15/17 04:27 05/15/17 04:27 General appearance: Present: cooperative, no acute distress, answers questions appropriately - Head Head exam: Present: atraumatic, normocephalic - Respiratory Respiratory exam: Absent: chest wall tenderness, respiratory distress, wheezes Additional comments: crackles - GI/Abdominal GI/Abdominal exam: Present: normal bowel sounds, soft, no peritoneal signs. Absent: distended, tenderness - Additional comments: Blood near urethral meatus. Blood in nephrostomy collection bag. Internal Med - H&P Results - Labs CBC & Chem 7: 05/15/17 01:56 05/15/17 01:56 - EKG Data EKG comments: 05/15/17 ED EKG reviewed with attending Electronic ventricular pacemaker at a rate of 93. QTC of 479. Left axis deviation. - Impressions ITS Impressions Abdomen/Pelvis CT 05/15/17 00:53 IMPRESSION: High attenuation within the right kidney and right renal pelvis almost certainly represents hemorrhage though could represent some residual contrast used at the time of tube placement. There is no evidence for perinephric hematoma. There are now 3 calculi within the urinary bladder. D/ / Pete Ellison MD / Pete Ellison MD Interpreting Provider: Pete Ellison MD Chest X-Ray 05/15/17 02:25 IMPRESSION: No significant interval change. D/ / Eliezer Guerra MD / Eliezer Guerra MD Interpreting Provider: Eliezer Guerra MD
[2017-05-15] MEDS ORDERED: Melatonin 3 MG TABLET PO PRN (06:31)
[2017-05-15 07:54] LABS: Hematocrit 26.7 % (37.5-50.1)
[2017-05-15 07:56] LABS: Hemoglobin 8.3 g/dL (12.9-16.9)
[2017-05-15] MEDS: levETIRAcetam 250 MG TABLET PO SCH ×2 (09:41→17:40)
[2017-05-15] MEDS: 0.9 % Sodium Chloride 1,000 ML IVC SCH (09:46)
--- NOTE | 2017-05-15 10:09 | Urology Progress Note ---
Date of Encounter: 05/15/17 Time of Encounter: 10:07 - Assessment and Plan (1) Hemorrhage from nephrostomy tube Current Visit: Yes Status: Acute Assessment and plan: I reviewed the CT images and there is some blood in the collecting system. this is not unusual after a PCNL. no large hemorrhage around the kidney or in the retroperitoneum. HE experienced a small drop in his hemoglobin but this may be dilutional combined with some blood loss. NO urgent need for reoperation from standpoint. transfuse if necessary and I suspect the hgb will stabilize IV ABX until culture available. pt is higher risk for colonization bc of stent prior to PCNL Troponin level noted. may be cardiac strain. appreciate cards input. The patient also has a 8-9 mm renal pelvis stone remaining. will need a relook at some point to remove. OK to perform as outpatient as need to stabilize his current condition. Progress Note Subjective: feels better, still having pain Narrative: pt states he came to the ER because of fever. denies chest pain. he did not restart plavix. still has blood in his voided urine. small clots. no major hesitency. Objective Initial Vital Signs Temp Pulse Resp BP Pulse Ox 102.2 F H 93 20 119/62 98 05/15/17 01:38 05/15/17 01:38 05/15/17 01:38 05/15/17 01:38 05/15/17 01:38 - General physical appearance Present: no distress - Additional Exam irrigated his nephrostomy tube and it returned fairly clear fluid with no clots. urine in urinal shows moderate hematuria with no clots no large flank bruising. - Labs 05/15/17 07:01 05/15/17 01:56 Consult Discharge Plan - Plan Referrals: Dejan Moraes MD [Primary Care Provider] - (web request sent on 05/15/17)
--- NOTE | 2017-05-15 10:18 | Cardiology Consult Note ---
<Evita Alicea - Last Filed: 05/15/17 11:35> Date of Encounter: 05/15/17 Time of Encounter: 10:00 Assessment and Plan (1) Hemorrhage from nephrostomy tube Current Visit: Yes Status: Acute Hemorrhage from right nephrostomy tube that began last night. s/p 2 nephrostomy tubes placed for staghorn calculi 05/12/[address] Umaña Abd/pelvis CT demonstrated hemorrhage vs contrast from tube placement in right kidney. Hgb 8.3 (10) -urology managing. 1 tube has been pulled out. -Hgb trending (2) Elevated troponin Current Visit: Yes Status: Acute Troponin elevated likely demand ischemia is setting of acute blood loss from nephrostomy tube, sepsis, CKD stage 3. troponin 1.02, 3.71 EKG demonstrated a ventricular paced rhythm. No ischemic changes. Patient denied chest pain, palpitations, lightheadedness. -will continue to trend troponin -despite increase in troponin the patient is not a good candidate for invasive procedures at this time due to bleeding. Will order limited echo to evaluate LV function. Further recommendations to follow. (3) Severe sepsis Current Visit: Yes Status: Acute Patient being treated for severe sepsis likely from UTI with hemorrhage from right nephrostomy tube. Was tachycardic and febrile. -on abx. management per primary team (4) UTI (urinary tract infection) Current Visit: Yes Status: Acute urinalysis demontrated UTI currently on abx. -management per primary team Qualifiers: Urinary tract infection type: site unspecified Hematuria presence: with hematuria Qualified Code(s): N39.0 - Urinary tract infection, site not specified; R31.9 - Hematuria, unspecified; R31.9 - Hematuria, unspecified (5) Chronic kidney disease (CKD), stage III (moderate) Current Visit: No Status: Acute History of CKD stage 3. Creatinine at baseline 1.45 -avoid nephrotoxic agents (6) CAD (coronary artery disease) Current Visit: Yes Status: Acute PMH: 2x CABG last one in 1998, [place], pacemaker 03/13/2017 TTE: EF 55-60% mild LV diastolic dysfunction, mild AR, mild moderate pulmonary hypertension. 04/16/2017 Dual chamber pacemaker implant -continue asa and simvastatin but may hold plavix. Qualifiers: Coronary Disease-Associated Artery/Lesion type: unspecified vessel or lesion type [place] vs. transplanted heart: unspecified whether [place] or transplanted heart Associated angina: without angina Qualified Code(s): I25.10 - Atherosclerotic heart disease of [place] coronary artery without angina pectoris Discussion w patient/family: The assessment and plan as outlined above was discussed with the patient and/or family members who expressed understanding and agreement. All questions were answered. Thank you for involving us in the care of your patient. Please call with any questions. History of Present Illness Consult date: 05/15/17 Requesting physician: Caroline Carvalho Consult reason: NSTEMI Chief complaint: hematuria History of present illness: Mr. Lombardi is a 81 year old male with PMH of CABG, pacemaker, CKD stage 3, MA, stroke, seizures who presented to [facility] complaining of blood coming from the nephrostomy tubes site. He is s/p 2 nephrostomy tubes placed for staghorn calculi 05/12/[address] Umaña. Upon my examination he was alongside his . He stated in the evening he started noticing the bleeding with clots and it would not stop. He also noted hematuria. He then called EMS to take him to ED. Abd/pelvis CT demonstrated hemorrhage vs contrast from tube placement in right kidney. Hgb 8.3. Urinalysis demonstrated UTI. He was also found to be septic meeting criteria with febrile and tachycardic. Lactic acid was WNL. Urology was consulted. Troponin was 1.02. EKG showed a ventricular paced rhythm. He admitted pain from nephrostomy tube sight, hematuria. Denied fever, chills, chest pain, palpitations, syncope, lightheaded, dyspnea. Past Med Surg Social Fam HX - Past Medical History Medical history: arthritis, COPD, coronary artery disease, diabetes, hypertension, kidney stones, myocardial infarction Psychiatric history: no psych history - Past Surgical History Surgical History: carotid endarterectomy, coronary bypass (CABG) - Social History Smoking Status: Former smoker Smokeless Tobacco Status: No Alcohol use: none Drug use: none - Family History Father Living Status: Hx Family Cardiac Disorders: Yes Medications and Allergies Aspirin Enteric Coated [Aspirin EC] 81 mg PO QAM 11/27/14 [History] ClonazePAM [Klonopin] 0.5 mg PO BID 11/27/14 [History] Ergocalciferol (VITAMIN D2) [Vitamin D2 (50,000 UNIT)] 50,000 unit PO MO [History] Gabapentin [Neurontin] 100 mg PO HS 11/27/14 [History] LevETIRAcetam [Keppra] 1,000 mg PO QPM 11/27/14 [History] LevETIRAcetam [Keppra] 500 mg PO QAM 11/27/14 [History] Simvastatin [Zocor] 10 mg PO QPM 11/27/14 [History] Tamsulosin [Flomax] 0.4 mg PO BID 11/27/14 [History] Lisinopril [Zestril] 5 mg PO BID 03/11/17 [History] Melatonin 3 mg PO HS PRN tablet 03/15/17 [Rx] HYDROcodone/Acet 5/325 mg [[place] 5-325 mg] 1 tab PO Q4HR PRN 5 Days #15 tablet 05/13/17 [Rx] cephALEXin [Keflex] 500 mg PO BID #10 capsule 05/13/17 [Rx] Clopidogrel [Plavix] 75 mg PO DAILY 05/15/17 [History] 3 Allergy/AdvReac Type Severity Reaction Status Date / Time Sulfa (Sulfonamide Allergy Rash Verified 05/12/17 07:34 Antibiotics) All Systems Review: The remainder of the systems were reviewed and are negative - Constitutional Constitutional: no chills, no fever(s), no weakness - EENT Eyes: no blurred vision - Cardiovascular Cardiovascular: no chest pain at rest, no chest pain with exertion, no lightheadedness, no palpitations, no syncope - Respiratory Respiratory: no cough, no dyspnea - Gastrointestinal Gastrointestinal: no abdominal pain, no nausea - Genitourinary Genitourinary: hematuria - Musculoskeletal Musculoskeletal: no abnormal gait - Integumentary Integumentary: no erythema - Neurological Neurological: no dizziness - Hematological/Lymphatic Hematologic/Lymphatic: other (bleeding from right nephrostomy tube) Physical Examination Vital Signs, Last 4 Hours Temp Pulse Resp BP Pulse Ox 05/15/17 06:49 98.2 F 75 16 103/62 98 General: Conversant, No Apparent Distress HEENT: Atraumatic, Mucus Membranes Moist Neck: No JVD Cardiac: Reg Rate and Rhythm, Normal S1 and S2 Lungs: Normal Breath Sounds, No Wheeze, Rales, Rhonchi Neuro: Alert and responsive, No focal deficits noted Abdomen: Soft, Non-Tender Skin: No rashes noted on visualized skin, Other (nephrostomy tube in right kidney) Musculoskeletal: No Chest Wall Tenderness Extremities: No Edema Results 05/15/17 07:01 05/15/17 01:56 Lab Results 05/15/17 07:01 Hgb 8.3 L D Hct 26.7 L Consult Discharge Plan - Plan Referrals: Dejan Moraes MD [Primary Care Provider] - 05/18/17 1:15 pm () <Eliseo Spaulding - Last Filed: 05/15/17 16:06> Date of Encounter: 05/15/17 - Attending Attestation 81-year-old male status post CABG 2, pacemaker, chronic kidney disease, CVA presents for a bleeding nephrostomy tube with sepsis and a hemoglobin of 8.3. Patient's troponins elevated currently peak about 3.0 within unremarkable EKG showing a ventricular paced rhythm. Likely demand ischemia in the setting of the above. Will obtain limited echo to evaluate for ejection fraction and rule out regional wall motion abnormalities. Previous ejection fraction preserved at 55% Assessment and Plan Discussion w patient/family: The assessment and plan as outlined above was discussed with the patient and/or family members who expressed understanding and agreement. All questions were answered. Thank you for involving us in the care of your patient. Please call with any questions. History of Present Illness History of present illness: Mr. Lombardi is a 81 year old male All Systems Review: The remainder of the systems were reviewed and are negative Results 05/15/17 13:05 05/15/17 01:56 Lab Results 05/15/17 05/15/17 05/15/17 07:01 10:19 13:05 Hgb 8.3 L D 9.0 L Hct 26.7 L 28.1 L Troponin I 3.71 H*
[2017-05-15] MEDS: *HR* HYDROcodone/Acet 5/325 mg TABLET PO PRN ×2 (12:10→18:49)
[2017-05-15 13:15] LABS: Hematocrit 28.1 % (37.5-50.1)
--- NOTE | 2017-05-15 13:22 | Event Note ---
Date of Encounter: 05/15/17 Time of Encounter: 13:20 Pt is an 81y/o male with PMH Of CAD s/p PCI on DAPT, s/p right percutaneous nephrostomy tube placement who was admitted for gross hematuria, elevated TNI, and sepsis secondary to UTI. Pt has been evaluated by cardiology and urology. Aspirin started by cardiology. continue statin will closely monitor H&H pt denies any chest pain at this time will closely monitor
[2017-05-15 19:20] LABS: Hematocrit 28.2 % (37.5-50.1)
[2017-05-15] MEDS: Gabapentin 100 MG CAPSULE PO SCH (21:22)
[2017-05-16] MEDS: 0.9 % Sodium Chloride 1,000 ML IVC SCH ×2 (00:18→17:01)
[2017-05-16 04:14] LABS: Basophils % 0.3 %; Eosinophils % 0.5 %; Hematocrit 24.9 % (37.5-50.1); Immature Granulocytes % 0.4 % (0-4); Lymphocytes # 0.7 K/mcL (0.6-4.6); Lymphocytes % 8.2 %; Mean Corpuscular HGB Conc 32.1 g/dL (31.6-35.5); Mean Corpuscular Volume 90.2 fL (83.0-100.0); Mean Platelet Volume 10.8 fL (9.4-12.4); Monocytes # 0.4 K/mcL (0.0-1.3); Monocytes % 5.3 %; Neutrophils # 6.8 K/mcL (1.6-8.9); Nucleated Red Blood Cells 0.3 /100 WBC (0); Platelet Count 177 K/mcL (140-400); Red Blood Count 2.76 M/mcL (4.19-5.50); Red Cell Distribution Width 14.5 % (11.5-14.5); Segmented Neutrophils % 85.3 %
[2017-05-16 04:18] LABS: INR 1.2; Prothrombin Time 13.4 Seconds (9.4-12.1)
[2017-05-16 04:34] LABS: BUN/Creatinine Ratio 24 (6-26); Blood Urea Nitrogen 30 mg/dL (8-23); Calcium 8.1 mg/dL (8.6-10.3); Carbon Dioxide 23 mEq/L (23-29); Chloride 110 mEq/L (98-107); Glucose 142 mg/dL (70-105); Osmolality,Calculated 299 (280-300); Potassium 4.1 mEq/L (3.5-5.1); Sodium 140 mEq/L (136-145); eGFR For African Americans > 60 (> 60); eGFR For Non-African Americans 56 (> 60)
--- NOTE | 2017-05-16 07:54 | Urology Progress Note ---
Date of Encounter: 05/16/17 Time of Encounter: 07:50 - Assessment and Plan (1) Hemorrhage from nephrostomy tube Current Visit: Yes Status: Acute Assessment and plan: no further fever and clearing urine. from standpoint patient is improving. HGB down to 8 but I see no evidence of acute hemorrhage. I still recommend transfusion as necessary and observation. Troponins have increases to 9. will await cards recs. ECHO noted. ok with ASA. Need to be cautious with plavix as it could increase bleeding from kidney but if necessary OK to restart. pt voiding ok without cath and renal function has improved and is now near normal. Progress Note Narrative: pt denies chest pain this AM. states nephrostomy tube hurts. Objective Initial Vital Signs Temp Pulse Resp BP Pulse Ox 102.2 F H 93 20 119/62 98 05/15/17 01:38 05/15/17 01:38 05/15/17 01:38 05/15/17 01:38 05/15/17 01:38 - General physical appearance Present: no distress - Additional Exam nephrostomy tube with clearing urine. light/moderate transparent hematuria voided urine light to moderate transparent hematuria. no clots. - Labs 05/16/17 03:50 05/16/17 03:50 Diabetes panel 05/16/17 Range/Units 03:50 Sodium 140 (136-145) mEq/L Potassium 4.1 (3.5-5.1) mEq/L Chloride 110 H (98-107) mEq/L Carbon Dioxide 23 (23-29) mEq/L BUN 30 H (8-23) mg/dL Creatinine 1.24 (0.70-1.30) mg/dL Glucose 142 H (70-105) mg/dL Calcium 8.1 L (8.6-10.3) mg/dL Calcium panel 05/16/17 Range/Units 03:50 Calcium 8.1 L (8.6-10.3) mg/dL Pituitary panel 05/16/17 Range/Units 03:50 Sodium 140 (136-145) mEq/L Potassium 4.1 (3.5-5.1) mEq/L Chloride 110 H (98-107) mEq/L Carbon Dioxide 23 (23-29) mEq/L BUN 30 H (8-23) mg/dL Creatinine 1.24 (0.70-1.30) mg/dL Glucose 142 H (70-105) mg/dL Calcium 8.1 L (8.6-10.3) mg/dL Adrenal panel 05/16/17 Range/Units 03:50 Sodium 140 (136-145) mEq/L Potassium 4.1 (3.5-5.1) mEq/L Chloride 110 H (98-107) mEq/L Carbon Dioxide 23 (23-29) mEq/L BUN 30 H (8-23) mg/dL Creatinine 1.24 (0.70-1.30) mg/dL Glucose 142 H (70-105) mg/dL Calcium 8.1 L (8.6-10.3) mg/dL Consult Discharge Plan - Plan Referrals: Dejan Moraes MD [Primary Care Provider] - 05/18/17 1:15 pm ()
[2017-05-16] MEDS: Aspirin Enteric Coated 81 MG Tablet PO SCH (08:44)
[2017-05-16] MEDS: levETIRAcetam 250 MG TABLET PO SCH ×2 (08:45→16:56)
[2017-05-16] MEDS: Piperacillin/Tazobactam 3.375 GM in 0.9 % Sodium Chloride Mini Bag 100 ML IVPB SCH ×2 (08:46→16:56)
--- NOTE | 2017-05-16 08:55 | Cardiology Progress Note ---
Date of Encounter: 05/16/17 Time of Encounter: 08:53 Assessment and Plan (1) NSTEMI (non-ST elevated myocardial infarction) Current Visit: Yes Status: Acute Troponins 1.02, 3.71, 2.02, 3.76, 9.00, suspect perioperative MO. Pt denies active chest pain. TTE LV systolic function appears severely reduced. However, the endocardial border is suboptimally visualized on this study. Recommend repeat limited echo with imaging enhancement. Will order. TTE 03/2017 EF was preserved, so decreased EF is new. However, given HGB has dropped to 8.0 and pt is still with significant hematuria s/p right renal hemorrhage, he is currently not a candidate for invasive cardiac testing--LHC. Also not a candidate for heparin gtt currently. If condition worsens, consider palliative consult. Currently full code. Recommend continuing ASA, Statin. Will add BB. Medical management recommended at this time. Not a candidate for cardiac rehab. Would recommend close outpt cardiology follow-up, and once his HGB has stabilized, and can consider invasive testing when he could possibly tolerate DAPT. Will discuss and review with Dr. Spaulding. (2) Cardiomyopathy Current Visit: Yes Status: Acute Newly reduced EF. TTE was poor quality, unable to estimate EF, but noted to be severely reduced. ICMP vs NICMP. EF was preserved 03/2017. As above, currently not a candidate for invasive evaluation. Start BB. Recommend low dose ACEi if BP and renal function will tolerate prior to d/c. Qualifiers: Cardiomyopathy type: unspecified Qualified Code(s): I42.9 - Cardiomyopathy , unspecified (3) CAD (coronary artery disease) Current Visit: Yes Status: Acute PMH: 2x CABG last one in 1998, [place], pacemaker 03/13/2017 TTE: EF 55-60% mild LV diastolic dysfunction, mild AR, mild moderate pulmonary hypertension. 04/16/2017 Dual chamber pacemaker implant Continue ASA, Statin, start BB. TTE 05/15/17 EF appears severely reduced. Repeat with definity. Qualifiers: Coronary Disease-Associated Artery/Lesion type: unspecified vessel or lesion type [place] vs. transplanted heart: unspecified whether [place] or transplanted heart Associated angina: without angina Qualified Code(s): I25.10 - Atherosclerotic heart disease of [place] coronary artery without angina pectoris Discussion w patient/family: The assessment and plan as outlined above was discussed with the patient and/or family members who expressed understanding and agreement. All questions were answered. Thank you for involving us in the care of your patient. Please call with any questions. I will discuss all the above with Dr. Spaulding and make changes as necessary. Subjective Principal diagnosis: NSTEMI, hematuria Interval history: Troponins trended--most recent/highest 9.00. Pt denies chest pain. Intermittent dyspnea. HGB has dropped to 8.0. Still with significant hematuria. TTE LV systolic function appears severely reduced. However, the endocardial border is suboptimally visualized on this study. Recommend repeat limited echo with imaging enhancement. Objective Vital Signs, Last 4 Hours Temp Pulse Resp BP Pulse Ox 05/16/17 07:09 98.5 F 99 22 111/75 96 05/16/17 07:03 97.6 F 82 20 174/109 94 Vital Signs Temp Pulse Resp BP Pulse Ox 05/16/17 07:09 98.5 F 99 22 111/75 96 05/16/17 07:03 97.6 F 82 20 174/109 94 05/16/17 04:34 98.5 F 88 16 99/61 98 05/16/17 00:07 98.3 F 84 16 96/63 96 05/15/17 16:18 97.6 F 92 17 119/73 96 05/15/17 11:08 98.6 F 75 16 109/67 99 Intake and Output 05/15/17 05/16/17 05/16/17 23:59 07:59 15:59 Intake Total 1000 / 1000 Balance 1000 / 1000 Intake: IV Fluids 1000 / 1000 0.9 % Sodium Chloride 1,000 ML 1000 / 1000 @ 75 mls/hr IVC .[id number] [facility] Rx #:[id number] Other: Meal NPO # Voids 1 Weight 73.301 kg Patient Weight 05/16/17 23:59 Weight 73.301 kg General: Conversant, No Apparent Distress HEENT: Atraumatic, Normocephaly, Mucus Membranes Moist Neck: No JVD, Normal carotid pulses Cardiac: Reg Rate and Rhythm, Normal S1 and S2, No Murmur Lungs: Normal Breath Sounds, No Wheeze, Rales, Rhonchi Neuro: Alert and responsive, No focal deficits noted Abdomen: Soft, Non-Tender Skin: No rashes noted on visualized skin Musculoskeletal: No Chest Wall Tenderness Extremities: No Clubbing, No Cyanosis, No Edema Results 05/16/17 03:50 05/16/17 03:50 Lab Results 05/15/17 05/15/17 05/15/17 19:04 19:04 22:53 WBC Hgb 9.0 L Hct 28.2 L Plt Count INR Sodium Potassium Chloride Carbon Dioxide BUN Creatinine Glucose Calcium Troponin I 2.02 H* 3.76 H* 05/16/17 05/16/17 05/16/17 03:50 03:50 03:50 WBC 8.0 Hgb 8.0 L Hct 24.9 L Plt Count 177 INR 1.2 Sodium 140 Potassium 4.1 Chloride 110 H Carbon Dioxide 23 BUN 30 H Creatinine 1.24 Glucose 142 H Calcium 8.1 L Troponin I 05/16/17 03:50 WBC Hgb Hct Plt Count INR Sodium Potassium Chloride Carbon Dioxide BUN Creatinine Glucose Calcium Troponin I 9.00 H* Short CBC 05/16/17 05/15/17 05/15/17 Range/Units 03:50 19:04 13:05 WBC 8.0 (4.3-11.1) K/mcL Hgb 8.0 L 9.0 L 9.0 L (12.9-16.9) g/dL Hct 24.9 L 28.2 L 28.1 L (37.5-50.1) % Plt Count 177 (140-400) K/mcL Neutrophils # 6.8 (1.6-8.9) K/mcL BMP 05/16/17 Range/Units 03:50 Sodium 140 (136-145) mEq/L Potassium 4.1 (3.5-5.1) mEq/L Chloride 110 H (98-107) mEq/L Carbon Dioxide 23 (23-29) mEq/L BUN 30 H (8-23) mg/dL Creatinine 1.24 (0.70-1.30) mg/dL Glucose 142 H (70-105) mg/dL Calcium 8.1 L (8.6-10.3) mg/dL Cardiac Enzymes 05/16/17 05/15/17 05/15/17 Range/Units 03:50 22:53 19:04 Troponin I 9.00 H* 3.76 H* 2.02 H* (< 0.04) ng/mL 05/15/17 Range/Units 10:19 Troponin I 3.71 H* (< 0.04) ng/mL Impressions Echocardiogram Limited Views 05/15/17 10:10 Impressions: LV systolic function appears severely reduced. However, the endocardial border is suboptimally visualized on this study. Recommend repeat limited echo with imaging enhancement. Atypical septal motion consistent with bundle branch block. LV size upper limits of normal. Left Ventricular Wall Motion: Rest Echo Findings The apex, apical inferior, mid inferior, basal inferior, apical anterior, mid anterior, basal anterior, apical septal, mid inferior septal, basal inferior septal, apical lateral, mid anterior lateral, basal anterior lateral, mid anterior septal, mid inferior lateral, basal anterior septal and basal inferior lateral pruitt were hypokinetic. Findings: Study Quality * Technically adequate exam. ECG Findings * Unclear underlying rhythm - probably sinus. Left Ventricle * LV endocardial border is suboptimally visualized on this study. * Atypical septal motion consistent with bundle branch block. * LV size upper limits of normal. * Normal LV wall thickness. Right Ventricle * RV not optimally evaluated. Aorta * Normally sized aortic root. Pericardium * There is no pericardial effusion present. IVC * Normal IVC dimensions and inspiratory collapse. Active Medications Hydrocodone Bitart/Acetaminophen ([place] 5-325 Mg) 1 tab PO Q4HR PRN PRN Reason: mild to moderate pain Stop: 11/14/17 06:32 Last Admin: 05/15/17 18:49 Dose: 1 tab Aspirin (Aspirin Ec) 81 mg PO DAILY RODRIGUEZ Stop: 11/15/17 09:01 Last Admin: 05/16/17 08:44 Dose: 81 mg Clonazepam (Klonopin) 0.5 mg PO BID RODRIGUEZ Stop: 11/14/17 09:01 Gabapentin (Neurontin) 100 mg PO HS RODRIGUEZ Stop: 11/14/17 21:01 Last Admin: 05/15/17 21:22 Dose: 100 mg Piperacillin Sod/Tazobactam (Sod 3.375 gm/ Sodium Chloride) 100 mls @ 25 mls/ hr IVPB Q8H RODRIGUEZ Stop: 11/15/17 10:01 Last Admin: 05/16/17 08:46 Dose: 25 mls/hr Sodium Chloride (0.9 % Sodium Chloride) 1,000 mls @ 75 mls/hr IVC .[id number] RODRIGUEZ Stop: 11/14/17 06:46 Last Admin: 05/16/17 00:18 Dose: 75 mls/hr Levetiracetam (Keppra) 500 mg PO QAM RODRIGUEZ Stop: 11/14/17 09:01 Last Admin: 05/16/17 08:45 Dose: 500 mg Levetiracetam (Keppra) 1,000 mg PO QPM RODRIGUEZ Stop: 11/14/17 18:01 Last Admin: 05/15/17 17:40 Dose: 1,000 mg Melatonin (Melatonin) 3 mg PO HS PRN PRN Reason: Insomnia Stop: 11/14/17 06:32 Simvastatin (Zocor) 10 mg PO QPM RODRIGUEZ PRN Reason: Protocol Stop: 11/14/17 18:01 Last Admin: 05/15/17 17:40 Dose: 10 mg Tamsulosin HCl (Flomax) 0.4 mg PO BID RODRIGUEZ PRN Reason: Protocol Stop: 11/14/17 09:01 Last Admin: 05/16/17 08:45 Dose: 0.4 mg - Imaging and Cardiology Echo: report reviewed - EKG Interpretation EKG results cardiology: other (12 hr tele AVG HR 94, paced) - VTE Documentation of Mechanical Device: Intermittent pneumatic compression device Consult Discharge Plan - Plan Referrals: Dejan Moraes MD [Primary Care Provider] - 05/18/17 1:15 pm ()
[2017-05-16] MEDS ORDERED: Perflutren Lipid Microsphere 1.3 ML in 0.9 % Sodium Chloride 8.7 ML IVP ONE (09:39)
[2017-05-16] MEDS: *HR* HYDROcodone/Acet 5/325 mg TABLET PO PRN (11:26)
--- NOTE | 2017-05-16 12:36 | Internal Med Progress Note ---
Date of Encounter: 05/16/17 Time of Encounter: 12:33 - Assessment and plan (1) Gross hematuria Current Visit: Yes Status: Acute Assessment and plan: improving urology on board and evaluation appreciated no acute intervention at this time continue to monitor H&H and transfuse if Hgb<7 pt is voiding ok without catheter pt started back on ASA as it was cleared by urology (2) Hemorrhage from nephrostomy tube Current Visit: Yes Status: Acute (3) NSTEMI (non-ST elevated myocardial infarction) Current Visit: Yes Status: Acute Assessment and plan: Pt denies any chest pain or SOB at this time cardiology on board and no acute intervention recommended at this time continue asa, statin, added BB continue tele monitoring outpatient follow up recommended for possible invasive testing once Hgb is improved and pt can tolerate DAPT (4) CAD (coronary artery disease) Current Visit: Yes Status: Acute Assessment and plan: continue asa, statin, bb denies any chest pain at this time Qualifiers: Coronary Disease-Associated Artery/Lesion type: unspecified vessel or lesion type [place] vs. transplanted heart: unspecified whether [place] or transplanted heart Associated angina: without angina Qualified Code(s): I25.10 - Atherosclerotic heart disease of [place] coronary artery without angina pectoris (5) Chronic kidney disease Current Visit: Yes Status: Chronic Assessment and plan: renal function at baseline continue to closely monitor Qualifiers: Chronic kidney disease stage: stage 3 (moderate) Qualified Code(s): N18.3 - Chronic kidney disease, stage 3 (moderate) (6) DVT prophylaxis Current Visit: Yes Status: Acute Assessment and plan: SCD (7) Renal hemorrhage, right Current Visit: Yes Status: Acute Assessment and plan: urology input appreciated (8) Sepsis Current Visit: Yes Status: Acute Assessment and plan: secondary to UTI continue IV abx awaiting urine culture Qualifiers: Sepsis type: sepsis due to unspecified organism Qualified Code(s): A41.9 - Sepsis, unspecified organism (9) UTI (urinary tract infection) Current Visit: Yes Status: Acute Assessment and plan: as listed above Qualifiers: Urinary tract infection type: site unspecified Hematuria presence: with hematuria Qualified Code(s): N39.0 - Urinary tract infection, site not specified; R31.9 - Hematuria, unspecified; R31.9 - Hematuria, unspecified (10) HTN (hypertension) Current Visit: No Status: Chronic Assessment and plan: BP within acceptable range continue current management Qualifiers: Hypertension type: essential hypertension Qualified Code(s): I10 - Essential (primary) hypertension - Time Spent With Patient Total time spent is greater than 50% in coordination of care (as documented) at patient's floor/unit and/or counseling patient: - Subjective Interval history: Patient seen and examined with present at bedside. Pt reports pain at the site of nephrostomy tube insertion. Still having hematuria but improved. Pt denies any chest pain or shortness of breath. Pt adamantly refusing placement at [facility]CF and refusing to get out of bed to chair. states that he has been requiring two people at home to get him out of bed to chair and needs rehab but patient refusing. will obtain physical therapy evaluation and social science research assistant evaluation for set up of home health services unless pt agrees to ECF - Constitutional Vitals: Temp Pulse Resp BP Pulse Ox 99.1 F 94 26 127/79 98 05/16/17 11:36 05/16/17 11:36 05/16/17 11:36 05/16/17 11:36 05/16/17 11:36 General appearance: Present: A&O X 3, no acute distress, answers questions appropriately - Head Head exam: Present: atraumatic, normocephalic - Eye Eye exam: Present: conjuntiva pink, sclera anicteric - Respiratory Respiratory exam: Present: CTAB. Absent: respiratory distress, wheezes - Cardiovascular Cardiovascular exam: Present: RRR, +S1, +S2 - GI/Abdominal GI/Abdominal exam: Present: normal bowel sounds, soft. Absent: distended, tenderness Additional comments: nephrostomy tube in place - Extremities Exam Extremities exam: Present: warm, radial pulses palpable and symmetrical. Absent : calf tenderness, tenderness - Neurological Exam Neurological exam: Present: oriented X3 Internal Medicine: Result - Labs CBC & Chem 7: 05/16/17 03:50 05/16/17 03:50 Labs: Short CBC 05/15/17 05/16/17 Range/Units 19:04 03:50 WBC 8.0 (4.3-11.1) K/mcL Hgb 9.0 L 8.0 L (12.9-16.9) g/dL Hct 28.2 L 24.9 L (37.5-50.1) % Plt Count 177 (140-400) K/mcL Neutrophils # 6.8 (1.6-8.9) K/mcL BMP 05/16/17 03:50 Sodium 140 Potassium 4.1 Chloride 110 H Carbon Dioxide 23 BUN 30 H Creatinine 1.24 Glucose 142 H Calcium 8.1 L Cardiac Enzymes 05/15/17 05/15/17 05/16/17 Range/Units 19:04 22:53 03:50 Troponin I 2.02 H* 3.76 H* 9.00 H* (< 0.04) ng/mL - ABG Interpretation ABG results: PT/INR, D-dimer PT 13.4 Seconds (9.4-12.1) H 05/16/17 03:50 - VTE Documentation of Mechanical Device: Intermittent pneumatic compression device Consult Discharge Plan - Plan Referrals: Dejan Moraes MD [Primary Care Provider] - 05/18/17 1:15 pm ()
[2017-05-16] MEDS: Metoprolol XL (24 HR) Succ 25 MG TAB.ER.24H PO SCH (12:41)
--- NOTE | 2017-05-16 13:07 | Electrocardiograph Report ---
[address] [place] [address] Test Date: 2017-05-15 Pat Name: Laz Lombardi Department: 103 Room: 2A25 Gender: M [employer] Executive Director: [facility] : 1935 Requested By: Nehemias Barnard Order Number: [id number] Reading MD: Angela Day Measurements Intervals [place] Rate: 93 P: 31 KS: 137 QRS: -69 QRSD: 190 T: 121 QT: 428 QTc: 479 Interpretive Statements ELECTRONIC VENTRICULAR PACEMAKER ABNORMAL RHYTHM ECG Electronically Signed On 05-16-2017 13:05:45 EDT by Angela Day
[2017-05-16] MEDS: Gabapentin 100 MG CAPSULE PO SCH (20:01)
[2017-05-17] MEDS: 0.9 % Sodium Chloride 1,000 ML IVC SCH ×2 (00:57→21:08)
[2017-05-17] MEDS: Piperacillin/Tazobactam 3.375 GM in 0.9 % Sodium Chloride Mini Bag 100 ML IVPB SCH ×4 (02:42→17:02)
[2017-05-17 04:35] LABS: Basophils % 0.2 %; Eosinophils % 0.4 %; Hematocrit 24.7 % (37.5-50.1); Hemoglobin 8.1 g/dL (12.9-16.9); Immature Granulocytes % 0.3 % (0-4); Lymphocytes # 0.9 K/mcL (0.6-4.6); Lymphocytes % 10.2 %; Mean Corpuscular HGB Conc 32.8 g/dL (31.6-35.5); Mean Corpuscular Volume 88.5 fL (83.0-100.0); Mean Platelet Volume 11.2 fL (9.4-12.4); Monocytes # 0.5 K/mcL (0.0-1.3); Monocytes % 5.6 %; Neutrophils # 7.7 K/mcL (1.6-8.9); Platelet Count 188 K/mcL (140-400); Red Blood Count 2.79 M/mcL (4.19-5.50); Red Cell Distribution Width 14.6 % (11.5-14.5); Segmented Neutrophils % 83.3 %
[2017-05-17 04:50] LABS: BUN/Creatinine Ratio 22 (6-26); Blood Urea Nitrogen 28 mg/dL (8-23); Calcium 8.1 mg/dL (8.6-10.3); Carbon Dioxide 22 mEq/L (23-29); Chloride 110 mEq/L (98-107); Glucose 159 mg/dL (70-105); Osmolality,Calculated 297 (280-300); Phosphorous 2.2 mg/dL (2.7-4.5); Potassium 3.9 mEq/L (3.5-5.1); Sodium 139 mEq/L (136-145); eGFR For African Americans > 60 (> 60); eGFR For Non-African Americans 54 (> 60)
[2017-05-17] MEDS: levETIRAcetam 250 MG TABLET PO SCH ×2 (08:35→17:02)
[2017-05-17] MEDS: Aspirin Enteric Coated 81 MG Tablet PO SCH (08:36)
[2017-05-17] MEDS: Metoprolol XL (24 HR) Succ 25 MG TAB.ER.24H PO SCH (08:36)
[2017-05-17] MEDS: clonazePAM 0.5 MG TABLET PO SCH ×2 (08:36→21:08)
--- NOTE | 2017-05-17 09:55 | Urology Progress Note ---
Date of Encounter: 05/17/17 Time of Encounter: 09:52 - Assessment and Plan (1) Gross hematuria Current Visit: Yes Status: Acute Assessment and plan: 82-year-old man status post right percutaneous nephrolithotomy was readmitted for UTI, SC, and hematuria. The hematuria is resolving. His hemoglobin has been stable at 8.1. Continue to monitor for now. He has some residual stone. Consideration for second look under local anesthetic. Continue nephrostomy tube for now. Appreciate internal medicine support and cardiology. (2) Hemorrhage from nephrostomy tube Current Visit: Yes Status: Acute Progress Note Narrative: Patient doing fairly well today. He is tolerating the nephrostomy tube. Troponins elevated to 9. Cardiology is managing medically. He has been voiding well. Objective Initial Vital Signs Temp Pulse Resp BP Pulse Ox 102.2 F H 93 20 119/62 98 05/15/17 01:38 05/15/17 01:38 05/15/17 01:38 05/15/17 01:38 05/15/17 01:38 - General physical appearance Present: well developed, well nourished, no distress - Respiratory Present: normal respiratory effort - Abdomen Present: soft (Right nephrostomy tube in place. It irrigates with light pink- colored return.) - Labs 05/17/17 03:51 05/17/17 03:51 Diabetes panel 05/17/17 Range/Units 03:51 Sodium 139 (136-145) mEq/L Potassium 3.9 (3.5-5.1) mEq/L Chloride 110 H (98-107) mEq/L Carbon Dioxide 22 L (23-29) mEq/L BUN 28 H (8-23) mg/dL Creatinine 1.27 (0.70-1.30) mg/dL Glucose 159 H (70-105) mg/dL Calcium 8.1 L (8.6-10.3) mg/dL Calcium panel 05/17/17 Range/Units 03:51 Calcium 8.1 L (8.6-10.3) mg/dL Phosphorus 2.2 L (2.7-4.5) mg/dL Pituitary panel 05/17/17 Range/Units 03:51 Sodium 139 (136-145) mEq/L Potassium 3.9 (3.5-5.1) mEq/L Chloride 110 H (98-107) mEq/L Carbon Dioxide 22 L (23-29) mEq/L BUN 28 H (8-23) mg/dL Creatinine 1.27 (0.70-1.30) mg/dL Glucose 159 H (70-105) mg/dL Calcium 8.1 L (8.6-10.3) mg/dL Adrenal panel 05/17/17 Range/Units 03:51 Sodium 139 (136-145) mEq/L Potassium 3.9 (3.5-5.1) mEq/L Chloride 110 H (98-107) mEq/L Carbon Dioxide 22 L (23-29) mEq/L BUN 28 H (8-23) mg/dL Creatinine 1.27 (0.70-1.30) mg/dL Glucose 159 H (70-105) mg/dL Calcium 8.1 L (8.6-10.3) mg/dL - VTE Documentation of Mechanical Device: Intermittent pneumatic compression device Consult Discharge Plan - Plan Referrals: Dejan Moraes MD [Primary Care Provider] - 05/18/17 1:15 pm ()
--- NOTE | 2017-05-17 11:42 | Internal Med Progress Note ---
Date of Encounter: 05/17/17 Time of Encounter: 11:36 - Assessment and plan (1) Gross hematuria Current Visit: Yes Status: Acute Assessment and plan: improving urology on board and evaluation appreciated no acute intervention at this time continue to monitor H&H and transfuse if Hgb<7 pt is voiding ok without catheter pt started back on ASA as it was cleared by urology (2) Hemorrhage from nephrostomy tube Current Visit: Yes Status: Acute (3) NSTEMI (non-ST elevated myocardial infarction) Current Visit: Yes Status: Acute Assessment and plan: Pt denies any chest pain or SOB at this time cardiology on board and no acute intervention recommended at this time continue asa, statin, added BB continue tele monitoring outpatient follow up recommended for possible invasive testing once Hgb is improved and pt can tolerate DAPT (4) CAD (coronary artery disease) Current Visit: Yes Status: Acute Assessment and plan: continue asa, statin, bb denies any chest pain at this time Qualifiers: Coronary Disease-Associated Artery/Lesion type: unspecified vessel or lesion type [place] vs. transplanted heart: unspecified whether [place] or transplanted heart Associated angina: without angina Qualified Code(s): I25.10 - Atherosclerotic heart disease of [place] coronary artery without angina pectoris (5) Chronic kidney disease Current Visit: Yes Status: Chronic Assessment and plan: renal function at baseline continue to closely monitor Qualifiers: Chronic kidney disease stage: stage 3 (moderate) Qualified Code(s): N18.3 - Chronic kidney disease, stage 3 (moderate) (6) DVT prophylaxis Current Visit: Yes Status: Acute Assessment and plan: SCD (7) Renal hemorrhage, right Current Visit: Yes Status: Acute Assessment and plan: urology input appreciated (8) Sepsis Current Visit: Yes Status: Acute Assessment and plan: secondary to UTI continue IV abx urine culture prelim shows no growth will de-escalate therapy in am Qualifiers: Sepsis type: sepsis due to unspecified organism Qualified Code(s): A41.9 - Sepsis, unspecified organism (9) UTI (urinary tract infection) Current Visit: Yes Status: Acute Assessment and plan: as listed above Qualifiers: Urinary tract infection type: site unspecified Hematuria presence: with hematuria Qualified Code(s): N39.0 - Urinary tract infection, site not specified; R31.9 - Hematuria, unspecified; R31.9 - Hematuria, unspecified (10) HTN (hypertension) Current Visit: No Status: Chronic Assessment and plan: BP within acceptable range continue current management Qualifiers: Hypertension type: essential hypertension Qualified Code(s): I10 - Essential (primary) hypertension - Time Spent With Patient Total time spent is greater than 50% in coordination of care (as documented) at patient's floor/unit and/or counseling patient: - Subjective Interval history: Patient seen and examined with present at bedside. As per , pt's mental status waxes and wanes, he has moments of clarity but does not have any understanding of his medical illness or has the capacity to make any health care decisions. He continues to remain in bed and refuses to get out of bed with assistance. is worried that she is not able to take care of him at home. Will obtain social work manager evaluation Hematuria improved H&H within acceptable range. - Constitutional Vitals: Temp Pulse Resp BP Pulse Ox 98.8 F 96 16 123/74 97 05/17/17 07:39 05/17/17 07:39 05/17/17 07:39 05/17/17 07:39 05/17/17 07:39 General appearance: Present: A&O X 3, no acute distress, answers questions appropriately - Head Head exam: Present: atraumatic, normocephalic - Eye Eye exam: Present: conjuntiva pink, sclera anicteric - Respiratory Respiratory exam: Present: CTAB. Absent: respiratory distress, wheezes - Cardiovascular Cardiovascular exam: Present: RRR, +S1, +S2. Absent: diastolic murmur, gallop, rubs, systolic murmur - GI/Abdominal GI/Abdominal exam: Present: normal bowel sounds, soft, no peritoneal signs. Absent: distended, tenderness - Extremities Exam Extremities exam: Present: warm, radial pulses palpable and symmetrical. Absent : calf tenderness, tenderness - Neurological Exam Neurological exam: Present: oriented X3 Internal Medicine: Result - Labs CBC & Chem 7: 05/17/17 03:51 05/17/17 03:51 Labs: Short CBC 05/17/17 Range/Units 03:51 WBC 9.2 (4.3-11.1) K/mcL Hgb 8.1 L (12.9-16.9) g/dL Hct 24.7 L (37.5-50.1) % Plt Count 188 (140-400) K/mcL Neutrophils # 7.7 (1.6-8.9) K/mcL BMP 05/17/17 03:51 Sodium 139 Potassium 3.9 Chloride 110 H Carbon Dioxide 22 L BUN 28 H Creatinine 1.27 Glucose 159 H Calcium 8.1 L - ABG Interpretation ABG results: PT/INR, D-dimer PT 13.4 Seconds (9.4-12.1) H 05/16/17 03:50 - Impressions Impressions Echocardiogram Limited Views 05/16/17 09:08 Impressions: Severe LV systolic dysfunction with RWMA as described below LVEF 25% estimated with contrast Left Ventricular Wall Motion: Rest Echo Findings The apex, apical inferior, mid inferior, basal inferior, apical anterior, mid anterior, basal anterior, apical lateral, mid anterior lateral, basal anterior lateral, mid anterior septal, mid inferior lateral, basal anterior septal and basal inferior lateral pruitt were hypokinetic. The apical septal, mid inferior septal and basal inferior septal pruitt were akinetic. Findings: Study Quality * Technically adequate exam. ECG Findings * Paced rhythm. Left Ventricle * LVEF 25%. ADDENDUM: 05/16/17 1511 Impressions: Severe LV systolic dysfunction with RWMA as described below LVEF 25% estimated with contrast Left Ventricular Wall Motion: Rest Echo Findings The apex, apical inferior, mid inferior, basal inferior, apical anterior, mid anterior, basal anterior, apical lateral, mid anterior lateral, basal anterior lateral, mid anterior septal, mid inferior lateral, basal anterior septal and basal inferior lateral pruitt were hypokinetic. The apical septal, mid inferior septal and basal inferior septal pruitt were akinetic. Findings: Study Quality * Technically adequate exam. ECG Findings * Paced rhythm. Left Ventricle * LVEF 25%. - VTE Documentation of Mechanical Device: Intermittent pneumatic compression device Consult Discharge Plan - Plan Referrals: Dejan Moraes MD [Primary Care Provider] - 05/18/17 1:15 pm ()
[2017-05-17] MEDS: Gabapentin 100 MG CAPSULE PO SCH (21:08)
[2017-05-18] MEDS: Piperacillin/Tazobactam 3.375 GM in 0.9 % Sodium Chloride Mini Bag 100 ML IVPB SCH ×2 (02:54→08:40)
[2017-05-18 04:20] LABS: Basophils % 0.2 %; Eosinophils # 0.1 K/mcL (0.0-0.6); Eosinophils % 0.5 %; Hematocrit 24.9 % (37.5-50.1); Hemoglobin 7.9 g/dL (12.9-16.9); Immature Granulocytes % 0.4 % (0-4); Lymphocytes % 9.5 %; Mean Corpuscular HGB Conc 31.7 g/dL (31.6-35.5); Mean Corpuscular Volume 88.3 fL (83.0-100.0); Mean Platelet Volume 11.2 fL (9.4-12.4); Monocytes # 0.4 K/mcL (0.0-1.3); Monocytes % 4.3 %; Neutrophils # 8.6 K/mcL (1.6-8.9); Platelet Count 211 K/mcL (140-400); Red Blood Count 2.82 M/mcL (4.19-5.50); Red Cell Distribution Width 14.6 % (11.5-14.5); Segmented Neutrophils % 85.1 %
[2017-05-18 04:34] LABS: BUN/Creatinine Ratio 23 (6-26); Blood Urea Nitrogen 31 mg/dL (8-23); Calcium 7.9 mg/dL (8.6-10.3); Carbon Dioxide 22 mEq/L (23-29); Chloride 109 mEq/L (98-107); Glucose 166 mg/dL (70-105); Magnesium 1.9 mg/dL (1.6-2.6); Osmolality,Calculated 300 (280-300); Phosphorous 2.5 mg/dL (2.7-4.5); Potassium 3.7 mEq/L (3.5-5.1); Sodium 140 mEq/L (136-145); eGFR For African Americans > 60 (> 60); eGFR For Non-African Americans 50 (> 60)
[2017-05-18] MEDS: Metoprolol XL (24 HR) Succ 25 MG TAB.ER.24H PO SCH (08:39)
[2017-05-18] MEDS: levETIRAcetam 250 MG TABLET PO SCH ×2 (08:39→16:56)
[2017-05-18] MEDS: Aspirin Enteric Coated 81 MG Tablet PO SCH (08:40)
[2017-05-18] MEDS: clonazePAM 0.5 MG TABLET PO SCH ×2 (08:40→20:53)
--- NOTE | 2017-05-18 13:10 | Internal Med Progress Note ---
Date of Encounter: 05/18/17 Time of Encounter: 12:51 - Assessment and plan (1) Gross hematuria Current Visit: Yes Status: Acute Assessment and plan: improving urology on board and evaluation appreciated no acute intervention at this time continue to monitor H&H and transfuse if Hgb<7 Pt tolerating aspirin without any worsening hematuria (2) Hemorrhage from nephrostomy tube Current Visit: Yes Status: Acute (3) NSTEMI (non-ST elevated myocardial infarction) Current Visit: Yes Status: Acute Assessment and plan: Pt denies any chest pain or SOB at this time cardiology signed off and no acute intervention recommended at this time continue asa, statin, added BB continue tele monitoring outpatient follow up recommended for possible invasive testing once Hgb is improved and pt can tolerate DAPT (4) CAD (coronary artery disease) Current Visit: Yes Status: Acute Assessment and plan: continue asa, statin, bb denies any chest pain at this time Qualifiers: Coronary Disease-Associated Artery/Lesion type: unspecified vessel or lesion type [place] vs. transplanted heart: unspecified whether [place] or transplanted heart Associated angina: without angina Qualified Code(s): I25.10 - Atherosclerotic heart disease of [place] coronary artery without angina pectoris (5) Chronic kidney disease Current Visit: Yes Status: Chronic Assessment and plan: renal function at baseline continue to closely monitor Qualifiers: Chronic kidney disease stage: stage 3 (moderate) Qualified Code(s): N18.3 - Chronic kidney disease, stage 3 (moderate) (6) DVT prophylaxis Current Visit: Yes Status: Acute Assessment and plan: SCD (7) Renal hemorrhage, right Current Visit: Yes Status: Acute Assessment and plan: urology input appreciated (8) Sepsis Current Visit: Yes Status: Resolved Assessment and plan: secondary to UTI will start PO levaquin and d/c IV abx (to complete abx therapy for a total of 10 days, day 5/10) Qualifiers: Sepsis type: sepsis due to unspecified organism Qualified Code(s): A41.9 - Sepsis, unspecified organism (9) UTI (urinary tract infection) Current Visit: Yes Status: Acute Assessment and plan: as listed above Qualifiers: Urinary tract infection type: site unspecified Hematuria presence: with hematuria Qualified Code(s): N39.0 - Urinary tract infection, site not specified; R31.9 - Hematuria, unspecified; R31.9 - Hematuria, unspecified (10) HTN (hypertension) Current Visit: No Status: Chronic Assessment and plan: BP within acceptable range continue current management Qualifiers: Hypertension type: essential hypertension Qualified Code(s): I10 - Essential (primary) hypertension - Time Spent With Patient Total time spent is greater than 50% in coordination of care (as documented) at patient's floor/unit and/or counseling patient: - Subjective Interval history: Patient seen and examined with present at bedside. As per , pt's mental status waxes and wanes, he has moments of clarity but does not have any understanding of his medical illness or has the capacity to make any health care decisions. Pt sitting in chair and eating lunch. awaiting PT/OT evaluation tentative d/c in am once discharge disposition has been accomplished Pt is unsafe to be discharge at home with alone with the level of care he is requiring. template layout worker on board. - Constitutional Vitals: Temp Pulse Resp BP Pulse Ox 98.5 F 83 16 138/74 98 05/18/17 09:00 05/18/17 09:00 05/18/17 09:00 05/18/17 09:00 05/18/17 09:00 General appearance: Present: A&O X 3, no acute distress, answers questions appropriately - Head Head exam: Present: atraumatic, normocephalic - Eye Eye exam: Present: conjuntiva pink, sclera anicteric - Respiratory Respiratory exam: Present: CTAB. Absent: respiratory distress, wheezes - Cardiovascular Cardiovascular exam: Present: RRR, +S1, +S2. Absent: diastolic murmur, gallop, rubs, systolic murmur - GI/Abdominal GI/Abdominal exam: Present: normal bowel sounds, soft, no peritoneal signs. Absent: distended, tenderness - Extremities Exam Extremities exam: Present: warm, radial pulses palpable and symmetrical. Absent : calf tenderness - Neurological Exam Neurological exam: Present: oriented X3 Internal Medicine: Result - Labs CBC & Chem 7: 05/18/17 03:05 05/18/17 03:05 Labs: Short CBC 05/18/17 Range/Units 03:05 WBC 10.1 (4.3-11.1) K/mcL Hgb 7.9 L (12.9-16.9) g/dL Hct 24.9 L (37.5-50.1) % Plt Count 211 (140-400) K/mcL Neutrophils # 8.6 (1.6-8.9) K/mcL BMP 05/18/17 03:05 Sodium 140 Potassium 3.7 Chloride 109 H Carbon Dioxide 22 L BUN 31 H Creatinine 1.35 H Glucose 166 H Calcium 7.9 L - ABG Interpretation ABG results: PT/INR, D-dimer PT 13.4 Seconds (9.4-12.1) H 05/16/17 03:50 - VTE Documentation of Mechanical Device: Intermittent pneumatic compression device Consult Discharge Plan - Plan Referrals: Dejan Moraes MD [Primary Care Provider] - 05/18/17 1:15 pm ()
[2017-05-18] MEDS: 0.9 % Sodium Chloride 1,000 ML IVC SCH (14:51)
[2017-05-18] MEDS: *HR* HYDROcodone/Acet 5/325 mg TABLET PO PRN (14:53)
[2017-05-18] MEDS ORDERED: levoFLOXacin 500 MG TABLET PO ONE (18:00)
[2017-05-18] MEDS: Gabapentin 100 MG CAPSULE PO SCH (20:53)
[2017-05-19 06:00] LABS: Basophils % 0.2 %; Eosinophils % 0.2 %; Hematocrit 26.5 % (37.5-50.1); Hemoglobin 8.4 g/dL (12.9-16.9); Immature Granulocytes % 0.6 % (0-4); Mean Corpuscular HGB Conc 31.7 g/dL (31.6-35.5); Mean Corpuscular Hemoglobin 28.2 pg (28.0-33.3); Mean Corpuscular Volume 88.9 fL (83.0-100.0); Mean Platelet Volume 11.1 fL (9.4-12.4); Monocytes # 0.5 K/mcL (0.0-1.3); Neutrophils # 11.2 K/mcL (1.6-8.9); Nucleated Red Blood Cells 0.9 /100 WBC (0); Platelet Count 255 K/mcL (140-400); Red Blood Count 2.98 M/mcL (4.19-5.50); Red Cell Distribution Width 14.8 % (11.5-14.5)
[2017-05-19 06:24] LABS: BUN/Creatinine Ratio 26 (6-26); Blood Urea Nitrogen 33 mg/dL (8-23); Carbon Dioxide 19 mEq/L (23-29); Chloride 112 mEq/L (98-107); Glucose 171 mg/dL (70-105); Magnesium 1.9 mg/dL (1.6-2.6); Osmolality,Calculated 301 (280-300); Phosphorous 2.6 mg/dL (2.7-4.5); Sodium 140 mEq/L (136-145); eGFR For African Americans > 60 (> 60); eGFR For Non-African Americans 54 (> 60)
[2017-05-19] MEDS: levETIRAcetam 250 MG TABLET PO SCH ×2 (08:11→17:18)
[2017-05-19] MEDS: Metoprolol XL (24 HR) Succ 25 MG TAB.ER.24H PO SCH (08:11)
[2017-05-19] MEDS: Aspirin Enteric Coated 81 MG Tablet PO SCH (08:11)
[2017-05-19] MEDS: clonazePAM 0.5 MG TABLET PO SCH ×2 (08:11→20:47)
--- NOTE | 2017-05-19 09:17 | Urology Progress Note ---
Date of Encounter: 05/19/17 Time of Encounter: 09:13 - Assessment and Plan (1) Hemorrhage from nephrostomy tube Current Visit: Yes Status: Resolved Assessment and plan: based on suspected cardiac event the patient is unlikely stable to proceed to OR for any procedure. He still has one problematic stone ~1 cm in the renal pelvis. if the tube is removed the stone is likely to obstruct. my plan is to attempt nephrostomy removal in the office and insert a flexible cystoscope and attempt to basket the stone. Hopefully will be able to complete without anesthesia. ok to discharge from hospital from standpoint. will arrange followup in office for procedure. Progress Note Narrative: pt was seen yesterday and was stable. some pain from nephrostomy tube but not severe. Objective Initial Vital Signs Temp Pulse Resp BP Pulse Ox 102.2 F H 93 20 119/62 98 05/15/17 01:38 05/15/17 01:38 05/15/17 01:38 05/15/17 01:38 05/15/17 01:38 - General physical appearance Present: no distress - Additional Exam urine in nephrostomy tube clearing with light hematuria no voided urine to visualize - Labs 05/19/17 05:33 05/19/17 05:33 Diabetes panel 05/19/17 Range/Units 05:33 Sodium 140 (136-145) mEq/L Potassium 4.0 (3.5-5.1) mEq/L Chloride 112 H (98-107) mEq/L Carbon Dioxide 19 L (23-29) mEq/L BUN 33 H (8-23) mg/dL Creatinine 1.27 (0.70-1.30) mg/dL Glucose 171 H (70-105) mg/dL Calcium 8.0 L (8.6-10.3) mg/dL Calcium panel 05/19/17 Range/Units 05:33 Calcium 8.0 L (8.6-10.3) mg/dL Phosphorus 2.6 L (2.7-4.5) mg/dL Pituitary panel 05/19/17 Range/Units 05:33 Sodium 140 (136-145) mEq/L Potassium 4.0 (3.5-5.1) mEq/L Chloride 112 H (98-107) mEq/L Carbon Dioxide 19 L (23-29) mEq/L BUN 33 H (8-23) mg/dL Creatinine 1.27 (0.70-1.30) mg/dL Glucose 171 H (70-105) mg/dL Calcium 8.0 L (8.6-10.3) mg/dL Adrenal panel 05/19/17 Range/Units 05:33 Sodium 140 (136-145) mEq/L Potassium 4.0 (3.5-5.1) mEq/L Chloride 112 H (98-107) mEq/L Carbon Dioxide 19 L (23-29) mEq/L BUN 33 H (8-23) mg/dL Creatinine 1.27 (0.70-1.30) mg/dL Glucose 171 H (70-105) mg/dL Calcium 8.0 L (8.6-10.3) mg/dL - VTE Documentation of Mechanical Device: Intermittent pneumatic compression device Consult Discharge Plan - Plan Referrals: Dejan Moraes MD [Primary Care Provider] - 05/18/17 1:15 pm (waiting for the plan)
[2017-05-19] MEDS: 0.9 % Sodium Chloride 1,000 ML IVC SCH (09:30)
--- NOTE | 2017-05-19 16:41 | Internal Med Progress Note ---
Date of Encounter: 05/19/17 Time of Encounter: 16:39 - Assessment and plan (1) Gross hematuria Current Visit: Yes Status: Acute Assessment and plan: improving urology on board and evaluation appreciated no acute intervention at this time continue to monitor H&H and transfuse if Hgb<7 Pt tolerating aspirin without any worsening hematuria (2) Hemorrhage from nephrostomy tube Current Visit: Yes Status: Resolved (3) NSTEMI (non-ST elevated myocardial infarction) Current Visit: Yes Status: Acute Assessment and plan: Pt denies any chest pain or SOB at this time cardiology signed off and no acute intervention recommended at this time continue asa, statin, added BB continue tele monitoring outpatient follow up recommended for possible invasive testing once Hgb is improved and pt can tolerate DAPT (4) CAD (coronary artery disease) Current Visit: Yes Status: Acute Assessment and plan: continue asa, statin, bb denies any chest pain at this time Qualifiers: Coronary Disease-Associated Artery/Lesion type: unspecified vessel or lesion type [place] vs. transplanted heart: unspecified whether [place] or transplanted heart Associated angina: without angina Qualified Code(s): I25.10 - Atherosclerotic heart disease of [place] coronary artery without angina pectoris (5) Chronic kidney disease Current Visit: Yes Status: Chronic Assessment and plan: renal function at baseline continue to closely monitor Qualifiers: Chronic kidney disease stage: stage 3 (moderate) Qualified Code(s): N18.3 - Chronic kidney disease, stage 3 (moderate) (6) DVT prophylaxis Current Visit: Yes Status: Acute Assessment and plan: SCD (7) Renal hemorrhage, right Current Visit: Yes Status: Acute Assessment and plan: urology input appreciated (8) Sepsis Current Visit: Yes Status: Resolved Assessment and plan: secondary to UTI continue PO levaquin day 07/19) Qualifiers: Sepsis type: sepsis due to unspecified organism Qualified Code(s): A41.9 - Sepsis, unspecified organism (9) UTI (urinary tract infection) Current Visit: Yes Status: Acute Assessment and plan: as listed above Qualifiers: Urinary tract infection type: site unspecified Hematuria presence: with hematuria Qualified Code(s): N39.0 - Urinary tract infection, site not specified; R31.9 - Hematuria, unspecified; R31.9 - Hematuria, unspecified (10) HTN (hypertension) Current Visit: No Status: Chronic Assessment and plan: BP within acceptable range continue current management Qualifiers: Hypertension type: essential hypertension Qualified Code(s): I10 - Essential (primary) hypertension - Time Spent With Patient Total time spent is greater than 50% in coordination of care (as documented) at patient's floor/unit and/or counseling patient: - Subjective Interval history: Patient seen and examined with present at bedside. As per , pt's mental status waxes and wanes, he has moments of clarity but does not have any understanding of his medical illness or has the capacity to make any health care decisions. Pt sitting in chair and denies any distress. PT evaluation recommended ECF. Pt willing to go to ECF. wall worker on board for placement D/C pending ECF placement increase in WBC noted, however clinically stable and afebrile, will continue current abx management. - Constitutional Vitals: Temp Pulse Resp BP Pulse Ox 97.3 F L 81 20 130/78 97 05/19/17 16:06 05/19/17 16:06 05/19/17 16:06 05/19/17 16:06 05/19/17 16:06 General appearance: Present: A&O X 3, no acute distress, answers questions appropriately - Head Head exam: Present: atraumatic, normocephalic - Eye Eye exam: Present: conjuntiva pink, sclera anicteric - Respiratory Respiratory exam: Present: CTAB. Absent: respiratory distress, wheezes - Cardiovascular Cardiovascular exam: Present: RRR, +S1, +S2. Absent: diastolic murmur, gallop, rubs, systolic murmur - GI/Abdominal GI/Abdominal exam: Present: normal bowel sounds, soft, no peritoneal signs. Absent: distended, tenderness - Extremities Exam Extremities exam: Present: warm, radial pulses palpable and symmetrical. Absent : calf tenderness - Neurological Exam Neurological exam: Present: oriented X3 Internal Medicine: Result - Labs CBC & Chem 7: 05/19/17 05:33 05/19/17 05:33 Labs: Short CBC 05/19/17 Range/Units 05:33 WBC 12.8 H (4.3-11.1) K/mcL Hgb 8.4 L (12.9-16.9) g/dL Hct 26.5 L (37.5-50.1) % Plt Count 255 (140-400) K/mcL Neutrophils # 11.2 H (1.6-8.9) K/mcL BMP 05/19/17 05:33 Sodium 140 Potassium 4.0 Chloride 112 H Carbon Dioxide 19 L BUN 33 H Creatinine 1.27 Glucose 171 H Calcium 8.0 L - ABG Interpretation ABG results: PT/INR, D-dimer PT 13.4 Seconds (9.4-12.1) H 05/16/17 03:50 - VTE Documentation of Mechanical Device: Intermittent pneumatic compression device Consult Discharge Plan - Plan Referrals: Dejan Moraes MD [Primary Care Provider] - 05/18/17 1:15 pm (waiting for the plan)
[2017-05-19] MEDS: levoFLOXacin 250 MG TABLET PO SCH (17:19)
[2017-05-19] MEDS: Gabapentin 100 MG CAPSULE PO SCH (20:47)
[2017-05-20] MEDS: 0.9 % Sodium Chloride 1,000 ML IVC SCH ×3 (00:06→21:15)
--- NOTE | 2017-05-20 00:34 | Electrocardiograph Report ---
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
--- NOTE | 2017-05-20 00:36 | Electrocardiograph Report ---
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
[2017-05-20 06:59] LABS: Basophils % 0.3 %; Eosinophils # 0.1 K/mcL (0.0-0.6); Eosinophils % 0.9 %; Hematocrit 27.3 % (37.5-50.1); Hemoglobin 8.6 g/dL (12.9-16.9); Immature Granulocytes % 1.4 % (0-4); Lymphocytes # 0.9 K/mcL (0.6-4.6); Mean Corpuscular HGB Conc 31.5 g/dL (31.6-35.5); Mean Corpuscular Hemoglobin 28.9 pg (28.0-33.3); Mean Corpuscular Volume 91.6 fL (83.0-100.0); Mean Platelet Volume 11.1 fL (9.4-12.4); Monocytes # 0.5 K/mcL (0.0-1.3); Monocytes % 4.5 %; Neutrophils # 9.7 K/mcL (1.6-8.9); Nucleated Red Blood Cells 1.5 /100 WBC (0); Platelet Count 290 K/mcL (140-400); Red Blood Count 2.98 M/mcL (4.19-5.50); Red Cell Distribution Width 14.9 % (11.5-14.5); Segmented Neutrophils % 84.9 %
[2017-05-20 07:47] LABS: BUN/Creatinine Ratio 27 (6-26); Blood Urea Nitrogen 35 mg/dL (8-23); Calcium 8.1 mg/dL (8.6-10.3); Carbon Dioxide 21 mEq/L (23-29); Chloride 109 mEq/L (98-107); Glucose 173 mg/dL (70-105); Osmolality,Calculated 302 (280-300); Phosphorous 2.5 mg/dL (2.7-4.5); Potassium 4.1 mEq/L (3.5-5.1); Sodium 140 mEq/L (136-145); eGFR For African Americans > 60 (> 60); eGFR For Non-African Americans 52 (> 60)
[2017-05-20] MEDS: levETIRAcetam 250 MG TABLET PO SCH ×2 (09:15→17:18)
[2017-05-20] MEDS: Metoprolol XL (24 HR) Succ 25 MG TAB.ER.24H PO SCH (09:16)
[2017-05-20] MEDS: clonazePAM 0.5 MG TABLET PO SCH ×2 (09:16→20:55)
[2017-05-20] MEDS: Aspirin Enteric Coated 81 MG Tablet PO SCH (09:16)
[2017-05-20] MEDS ORDERED: *HR* Dextrose 50 % in Water (Syg) 50 ML SYRINGE IVP PRN (10:42)
[2017-05-20] MEDS ORDERED: D5% in Water 1,000 ML IVC PRN (10:42)
[2017-05-20] MEDS ORDERED: Dextrose Gel 15 GM/37.5 ML TUBE PO PRN ×2 (10:42)
[2017-05-20] MEDS: Insulin LISPRO 300 UNITS/3 ML VIAL SQ SCH ×2 (12:11→17:19)
--- NOTE | 2017-05-20 13:37 | Internal Med Progress Note ---
Date of Encounter: 05/20/17 Time of Encounter: 13:34 - Assessment and plan (1) Gross hematuria Current Visit: Yes Status: Acute Assessment and plan: urology on board and evaluation appreciated no acute intervention at this time continue to monitor H&H and transfuse if Hgb<7 Pt tolerating aspirin without any worsening hematuria (2) Hemorrhage from nephrostomy tube Current Visit: Yes Status: Resolved (3) NSTEMI (non-ST elevated myocardial infarction) Current Visit: Yes Status: Acute Assessment and plan: Pt denies any chest pain or SOB at this time cardiology signed off and no acute intervention recommended at this time continue asa, statin, added BB continue tele monitoring outpatient follow up recommended for possible invasive testing once Hgb is improved and pt can tolerate DAPT (4) CAD (coronary artery disease) Current Visit: Yes Status: Acute Assessment and plan: continue asa, statin, bb denies any chest pain at this time Qualifiers: Coronary Disease-Associated Artery/Lesion type: unspecified vessel or lesion type [place] vs. transplanted heart: unspecified whether [place] or transplanted heart Associated angina: without angina Qualified Code(s): I25.10 - Atherosclerotic heart disease of [place] coronary artery without angina pectoris (5) Chronic kidney disease Current Visit: Yes Status: Chronic Assessment and plan: renal function at baseline continue to closely monitor Qualifiers: Chronic kidney disease stage: stage 3 (moderate) Qualified Code(s): N18.3 - Chronic kidney disease, stage 3 (moderate) (6) DVT prophylaxis Current Visit: Yes Status: Acute Assessment and plan: SCD (7) Renal hemorrhage, right Current Visit: Yes Status: Acute Assessment and plan: urology input appreciated (8) Sepsis Current Visit: Yes Status: Resolved Assessment and plan: secondary to UTI continue PO levaquin day 08/18) Qualifiers: Sepsis type: sepsis due to unspecified organism Qualified Code(s): A41.9 - Sepsis, unspecified organism (9) UTI (urinary tract infection) Current Visit: Yes Status: Acute Assessment and plan: as listed above Qualifiers: Urinary tract infection type: site unspecified Hematuria presence: with hematuria Qualified Code(s): N39.0 - Urinary tract infection, site not specified; R31.9 - Hematuria, unspecified; R31.9 - Hematuria, unspecified (10) HTN (hypertension) Current Visit: No Status: Chronic Assessment and plan: BP within acceptable range continue current management Qualifiers: Hypertension type: essential hypertension Qualified Code(s): I10 - Essential (primary) hypertension (11) Anemia Current Visit: Yes Status: Acute Assessment and plan: stool occult positive will call GI H&H low but acceptable will continue to closely monitor Qualifiers: Anemia type: unspecified type Qualified Code(s): D64.9 - Anemia, unspecified - Time Spent With Patient Total time spent is greater than 50% in coordination of care (as documented) at patient's floor/unit and/or counseling patient: - Subjective Interval history: Patient seen and examined with present at bedside. As per , pt's mental status waxes and wanes, he has moments of clarity but does not have any understanding of his medical illness or has the capacity to make any health care decisions. Pt resting in bed and denies any discomfort. Pt noted to have positive stool occult, and is refusing EGD or colonoscopy. wants him to get the work up done and is requesting GI evaluation. She states she will talk to him and her son to convince the patient for GI workup PT evaluation recommended ECF. Pt willing to go to ECF. 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 Absent: respiratory distress, wheezes - Cardiovascular Cardiovascular exam: Present: RRR, +S1, +S2. Absent: diastolic murmur, gallop, rubs, systolic murmur - GI/Abdominal GI/Abdominal exam: Present: normal bowel sounds, soft, no peritoneal signs. Absent: distended, tenderness - Extremities Exam Extremities exam: Present: warm, radial pulses palpable and symmetrical. Absent : calf tenderness - Neurological Exam Neurological exam: Present: oriented X3 Internal Medicine: Result - Labs CBC & Chem 7: 05/20/17 06:29 05/20/17 06:29 Labs: Short CBC 05/20/17 Range/Units 06:29 WBC 11.4 H (4.3-11.1) K/mcL Hgb 8.6 L (12.9-16.9) g/dL Hct 27.3 L (37.5-50.1) % Plt Count 290 (140-400) K/mcL Neutrophils # 9.7 H (1.6-8.9) K/mcL BMP 05/20/17 06:29 Sodium 140 Potassium 4.1 Chloride 109 H Carbon Dioxide 21 L BUN 35 H Creatinine 1.31 H Glucose 173 H Calcium 8.1 L Cardiac Enzymes 05/19/17 Range/Units 21:17 Troponin I 4.77 H* (< 0.04) ng/mL - ABG Interpretation ABG results: PT/INR, D-dimer PT 13.4 Seconds (9.4-12.1) H 05/16/17 03:50 - VTE Documentation of Mechanical Device: Intermittent pneumatic compression device Consult Discharge Plan - Plan Referrals: Dejan Moraes MD [Primary Care Provider] - (waiting for the plan, possible ECF placement)
[2017-05-20] MEDS ORDERED: SODIUM CHLORIDE/NAHCO3/KCL/PEG 4,000 ML SOLN.RECON PO ONE (14:35)
[2017-05-20] MEDS: levoFLOXacin 250 MG TABLET PO SCH (17:18)
[2017-05-20] MEDS: Gabapentin 100 MG CAPSULE PO SCH (20:55)
[2017-05-20] MEDS ORDERED: Insulin LISPRO 300 UNITS/3 ML VIAL SQ SCH (21:00)
[2017-05-21 05:30] LABS: Basophils % 0.3 %; Eosinophils # 0.2 K/mcL (0.0-0.6); Eosinophils % 1.9 %; Hematocrit 26.4 % (37.5-50.1); Hemoglobin 8.2 g/dL (12.9-16.9); Mean Corpuscular HGB Conc 31.1 g/dL (31.6-35.5); Mean Corpuscular Hemoglobin 28.4 pg (28.0-33.3); Mean Corpuscular Volume 91.3 fL (83.0-100.0); Monocytes # 0.5 K/mcL (0.0-1.3); Monocytes % 4.3 %; Neutrophils # 9.3 K/mcL (1.6-8.9); Nucleated Red Blood Cells 1.9 /100 WBC (0); Platelet Count 295 K/mcL (140-400); Red Blood Count 2.89 M/mcL (4.19-5.50); Red Cell Distribution Width 15.1 % (11.5-14.5); Segmented Neutrophils % 83.5 %
[2017-05-21 05:44] LABS: BUN/Creatinine Ratio 31 (6-26); Blood Urea Nitrogen 37 mg/dL (8-23); Carbon Dioxide 23 mEq/L (23-29); Chloride 111 mEq/L (98-107); Glucose 128 mg/dL (70-105); Osmolality,Calculated 300 (280-300); Phosphorous 2.7 mg/dL (2.7-4.5); Potassium 3.9 mEq/L (3.5-5.1); Sodium 140 mEq/L (136-145); eGFR For African Americans > 60 (> 60); eGFR For Non-African Americans 57 (> 60)
[2017-05-21] MEDS: *HR* HYDROcodone/Acet 5/325 mg TABLET PO PRN (06:24)
[2017-05-21] MEDS: Insulin LISPRO 300 UNITS/3 ML VIAL SQ SCH ×3 (08:44→16:51)
[2017-05-21] MEDS: 0.9 % Sodium Chloride 1,000 ML IVC SCH ×2 (10:58→11:28)
[2017-05-21] MEDS: clonazePAM 0.5 MG TABLET PO SCH (11:00)
[2017-05-21] MEDS: levETIRAcetam 250 MG TABLET PO SCH (11:00)
[2017-05-21] MEDS: Metoprolol XL (24 HR) Succ 25 MG TAB.ER.24H PO SCH (11:00)
[2017-05-21] MEDS: Aspirin Enteric Coated 81 MG Tablet PO SCH (11:01)
--- NOTE | 2017-05-21 13:42 | Gastroenterology Consult Note ---
<Faustino Gusman - Last Filed: 05/21/17 13:39> Date of Encounter: 05/21/17 Time of Encounter: 11:15 - Assessment and plan (1) Anemia Status: Acute Assessment and plan: Anemia is multifactorial. No overt rectal bleeding at this time. Continue to monitor CBC and transfuse PRBC as needed. Will hold on EGD and colonoscopy at this time. Patient to follow up in GI office in 2 months as outpatient for reevaluation. Qualifiers: Anemia type: unspecified type Qualified Code(s): D64.9 - Anemia, unspecified (2) Chronic kidney disease (CKD), stage III (moderate) Status: Acute (3) Hemorrhage from nephrostomy tube Status: Resolved Assessment and plan: Management per urology and primary team. - Time Spent With Patient Total time spent is greater than 50% in coordination of care (as documented) at patient's floor/unit and/or counseling patient: GI History of Present Illness - Data of Consult Patient: new to practice Consult date: 05/21/17 Requesting Physician: Tonya King MD - Consult Narrative Reason for consult: Anemia History of present illness: Mr. Lombardi is a 82 year old male with PMHx of COPD, CAD, DM, HTN, kidney stones who presented to the ED on postop day 2 nephrostomy placement with gross hematuria and blood clots around nephrostomy tube. CT A/P demonstrated hemorrhage vs contrast from tube placement in right kidney. He denied fever, chills, chest pain, syncope, shortness of breath, abdominal pain, melena, or hematochezia. He was febrile to 102.2 in the ED with HR 93, and was started on IV antibiotics, which has be changed to PO Levaquin. Troponin elevated on admission and peaked at 9 on 05/16. Cardiology was consulted and patient was not a candidate for invasive testing at this time. We have been consulted to evaluate his anemia. Hgb 10 on admission and dropped to 7.9 on 05/18. Fecal occult blood test was positive on 05/19. Patient denies any active rectal bleeding. Procedures: None NSAIDs: ASA Anticoagulation: Plavix Past Med Surg Social Fam HX - Past Medical History Medical history: arthritis, COPD, coronary artery disease, diabetes, hypertension, kidney stones, myocardial infarction Psychiatric history: no psych history - Past Surgical History Surgical History: carotid endarterectomy, coronary bypass (CABG) - Social History Smoking Status: Former smoker Smokeless Tobacco Status: No Alcohol use: none Drug use: none - Family History Father Living Status: Hx Family Cardiac Disorders: Yes - Gastrointestinal Gastrointestinal: Present: as per HPI - Constitutional Constitutional: as per HPI - EENT Eyes: as per HPI Ears: Present: as per HPI Nose, mouth and throat: Present: as per HPI - Cardiovascular Cardiovascular ROS: Present: as per HPI - Respiratory Respiratory IM: Present: as per HPI - Genitourinary Genitourinary: Absent: change in color, Urinary frequency - Neurological ROS Neurological GI: Present: as per HPI - Hematologic/Lymphatic Hematologic/Lymphatic pediatric: Present: as per HPI - Musculoskeletal Musculoskeletal ROS GI: Present: as per HPI - Integumentary Integumentary GI: Present: as per HPI - Psychiatric ROS Psychiatric GI: Present: as per HPI - Endocrine Endocrine IM: Present: as per HPI - Constitutional Vitals: Temp Pulse Resp BP Pulse Ox 97.4 F L 89 20 148/70 98 05/21/17 10:59 05/21/17 10:59 05/21/17 10:59 05/21/17 10:59 05/21/17 10:59 General appearance: Present: cooperative, A&O X 3, no acute distress, answers questions appropriately - Head Head exam: Present: atraumatic, normocephalic - Eye Eye exam: Present: normal appearance, sclera anicteric - ENT ENT exam: Present: mucous membranes dry - Neck Neck exam general surgery: Present: normal inspection, trachea midline - Respiratory Respiratory exam: Present: CTAB. Absent: rales, rhonchi - Cardiovascular Cardiovascular exam: Present: RRR, +S1, +S2 - GI/Abdominal GI/Abdominal exam: Present: soft, no peritoneal signs. Absent: distended, firm , guarding, tenderness - Rectal Rectal exam: Present: deferred - Extremities Exam Extremities exam: Present: warm - Neurological Exam Neurological exam: Present: no focal deficits - Psychiatric Psychiatric exam: Present: normal affect, normal mood - Skin Skin exam: Present: dry, intact, normal color, warm Results - Labs CBC & Chem 7: 05/21/17 05:01 05/21/17 05:01 Labs: Last Result Calcium 8.0 mg/dL (8.6-10.3) L 05/21/17 05:01 Troponin I 4.77 ng/mL (< 0.04) H* 05/19/17 21:17 Stool Occult Blood Positive (Negative) A 05/19/17 18:10 Entire Visit Hgb 8.2 g/dL (12.9-16.9) L 05/21/17 05:01 Hct 26.4 % (37.5-50.1) L 05/21/17 05:01 PT 13.4 Seconds (9.4-12.1) H 05/16/17 03:50 Total Bilirubin 0.9 mg/dL (0.3-1.0) 05/15/17 01:56 AST 20 Units/L (13-39) 05/15/17 01:56 ALT 6 Units/L (7-52) L 05/15/17 01:56 - ABG ABG results: PT/INR, D-dimer PT 13.4 Seconds (9.4-12.1) H 05/16/17 03:50 Consult Discharge Plan - Plan Additional Instructions: Please follow up with your primary care physician within five days after your discharge from the hospital Please follow up with urology, cardiology within one to two weeks after your discharge from the hospital. Please follow up with GI within two months after your discharge from the hospital Your home meds have been changed as follows: 1. Metoprolol 12.5mg once a day has been added 2. Plavix has been discontinued 3. Aspirin 81mg once a day has been added Continue Levaquin as prescribed for two more days. Resume all other home medications as prescribed by your primary care physician. Referrals: Dejan Moraes MD [Primary Care Provider] - (waiting for the plan, possible ECF placement) Prescriptions: HYDROcodone/Acet 5/325 mg [[place] 5-325 mg] 1 tab PO Q4HR PRN 5 Days #10 tablet PRN Reason: moderate to severe pain <Gul,Viridiana - Last Filed: 05/21/17 17:36> Date of Encounter: 05/20/17 Time of Encounter: 15:00 - Time Spent With Patient Total time spent is greater than 50% in coordination of care (as documented) at patient's floor/unit and/or counseling patient: GI History of Present Illness - Data of Consult Requesting Physician: Tonya King MD - Consult Narrative History of present illness: Mr. Lombardi is a 82 year old male - Constitutional Vitals: Temp Pulse Resp BP Pulse Ox 97.8 F 75 23 142/74 100 05/21/17 15:49 05/21/17 15:49 05/21/17 15:49 05/21/17 15:49 05/21/17 15:49 Results - Labs CBC & Chem 7: 05/21/17 05:01 05/21/17 05:01 Labs: Last Result Calcium 8.0 mg/dL (8.6-10.3) L 05/21/17 05:01 Troponin I 4.77 ng/mL (< 0.04) H* 05/19/17 21:17 Stool Occult Blood Positive (Negative) A 05/19/17 18:10 Entire Visit Hgb 8.2 g/dL (12.9-16.9) L 05/21/17 05:01 Hct 26.4 % (37.5-50.1) L 05/21/17 05:01 PT 13.4 Seconds (9.4-12.1) H 05/16/17 03:50 Total Bilirubin 0.9 mg/dL (0.3-1.0) 05/15/17 01:56 AST 20 Units/L (13-39) 05/15/17 01:56 ALT 6 Units/L (7-52) L 05/15/17 01:56 - ABG ABG results: PT/INR, D-dimer PT 13.4 Seconds (9.4-12.1) H 05/16/17 03:50 - Attending Attestation I have personally performed a face to face evaluation on this patient. I have reviewed and agree with the care plan. History and Exam by me shows: Discussed with the family at this point patient family is not interested in GI workup because of his multiple other comorbidities/issues. He can follow up with us as an outpatient in the near future
--- NOTE | 2017-05-21 14:16 | Discharge Summary ---
- NOTES TO OUTPATIENT PROVIDER Notes to Outpatient Provider: Pt needs GI follow up for EGD and colonoscopy, was stool occult positive during hospitalization Orders not resulted at time of discharge: Pending orders 05/19/17 18:10 Culture,Stool [RM] Routine Ova & Parasite Exam Routine Date of Encounter: 05/21/17 Time of Encounter: 13:45 - Discharge Diagnosis (1) Gross hematuria Priority: Primary Status: Resolved (2) Hemorrhage from nephrostomy tube Priority: Primary Status: Resolved (3) NSTEMI (non-ST elevated myocardial infarction) Priority: Secondary Status: Acute (4) CAD (coronary artery disease) Priority: Secondary Status: Chronic Qualifiers: Coronary Disease-Associated Artery/Lesion type: unspecified vessel or lesion type [place] vs. transplanted heart: unspecified whether [place] or transplanted heart Associated angina: without angina Qualified Code(s): I25.10 - Atherosclerotic heart disease of [place] coronary artery without angina pectoris (5) Chronic kidney disease Priority: Secondary Status: Chronic Qualifiers: Chronic kidney disease stage: stage 3 (moderate) Qualified Code(s): N18.3 - Chronic kidney disease, stage 3 (moderate) (6) DVT prophylaxis Priority: Secondary Status: Acute (7) Renal hemorrhage, right Priority: Secondary Status: Acute (8) Sepsis Priority: Primary Status: Resolved Qualifiers: Sepsis type: sepsis due to unspecified organism Qualified Code(s): A41.9 - Sepsis, unspecified organism (9) UTI (urinary tract infection) Priority: Primary Status: Acute Qualifiers: Urinary tract infection type: site unspecified Hematuria presence: with hematuria Qualified Code(s): N39.0 - Urinary tract infection, site not specified; R31.9 - Hematuria, unspecified; R31.9 - Hematuria, unspecified (10) HTN (hypertension) Priority: Secondary Status: Chronic Qualifiers: Hypertension type: essential hypertension Qualified Code(s): I10 - Essential (primary) hypertension (11) Anemia Priority: Secondary Status: Acute Qualifiers: Anemia type: unspecified type Qualified Code(s): D64.9 - Anemia, unspecified Hospital course: Mr. Lombardi is a 82 year old male with PMH of CAD, COPD, DM, HTN, CVA, renal stones s/p nephrostomy tube placement who was admitted for sepsis secondary to UTI and gross hematuria. He was also noted to have elevated TNI. He was evaluated by urology and supportive care was recommended. Pt's home dose of plavix was placed on hold. Cardiology evaluated the patient and medical management was recommended and outpatient follow was recommended for invasive testing. Pt improved with IV abx and was transitioned to PO abx as he clinically improved. He was also noted to have positive stool occult and GI was consulted. No intervention was recommended at this time and outpatient follow up was recommended by GI. Pt was evaluated by physical therapy and ECF was recommended. Pt is currently medically stable and will be discharged to ECF. Pt and (present at bedside) in agreement with the discharge care and plan. Discharge discussed with: patient, family, nurse, case management - Time Spent with Patient Total time spent providing and/or coordinating discharge services: Greater than 30 minutes - Discharge Medications Prescriptions: HYDROcodone/Acet 5/325 mg [[place] 5-325 mg] 1 tab PO Q4HR PRN 5 Days #10 tablet PRN Reason: moderate to severe pain Home Medications: Aspirin Enteric Coated [Aspirin EC] 81 mg PO QAM 11/27/14 [History] ClonazePAM [Klonopin] 0.5 mg PO BID 11/27/14 [History] Ergocalciferol (VITAMIN D2) [Vitamin D2 (50,000 UNIT)] 50,000 unit PO MO [History] Gabapentin [Neurontin] 100 mg PO HS 11/27/14 [History] LevETIRAcetam [Keppra] 1,000 mg PO QPM 11/27/14 [History] LevETIRAcetam [Keppra] 500 mg PO QAM 11/27/14 [History] Simvastatin [Zocor] 10 mg PO QPM 11/27/14 [History] Tamsulosin [Flomax] 0.4 mg PO BID 11/27/14 [History] Lisinopril [Zestril] 5 mg PO BID 03/11/17 [History] Melatonin 3 mg PO HS PRN tablet 03/15/17 [Rx] HYDROcodone/Acet 5/325 mg [[place] 5-325 mg] 1 tab PO Q4HR PRN 5 Days #10 tablet 05/21/17 [Rx] Metoprolol XL (24 HR) Succ [Toprol Xl] 12.5 mg PO DAILY tab.er.24h 05/21/17 [Rx ] levoFLOXacin [Levaquin] 250 mg PO Q24H #2 tablet 05/21/17 [Rx] Allergies/Adverse Reactions: 3 Allergy/AdvReac Type Severity Reaction Status Date / Time Sulfa (Sulfonamide Allergy Rash Verified 05/12/17 07:34 Antibiotics) Date of admission: 05/15/17 17:04 Primary care physician: Dejan Moraes MD Consults: 05/17/17 10:32 PT [Consult to Physical Therapy] [CONS] Routine Comment: Evaluate, develop and implement POC Reason for Consult: increased weakness Does patient have active BEDREST order?: No Is patient medically & hemodynamically stable?: Yes 05/17/17 10:33 OT [Consult to Occupational Therapy] [CONS] Routine Comment: Evaluate, develop and implement POC Reason for Consult: increased weakness Does patient have active BEDREST order?: No Is patient medically & hemodynamically stable?: Yes 05/18/17 08:28 Consult to Blueprint Engineer [CONS] Routine Reason for SW Consult: placement 05/20/17 13:32 Consult to Gastroenterology [CONS] Routine Consulting Provider: Fany Meredith Reason for Consult: positive stool occult, anemia Call Completed: Yes Discharging clinician: Tonya King Anticipated date of discharge: 05/21/17 - Constitutional Vitals: Temp Pulse Resp BP Pulse Ox 97.4 F L 89 20 148/70 98 05/21/17 10:59 05/21/17 10:59 05/21/17 10:59 05/21/17 10:59 05/21/17 10:59 General appearance: Present: A&O X 3, no acute distress, answers questions appropriately - Head Head exam: Present: atraumatic, normocephalic - Eye Eye exam: Present: conjuntiva pink, sclera anicteric - Respiratory Respiratory exam: Present: CTAB. Absent: respiratory distress, wheezes - Cardiovascular Cardiovascular exam: Present: RRR, +S1, +S2. Absent: diastolic murmur, gallop, rubs, systolic murmur - GI/Abdominal GI/Abdominal exam: Present: normal bowel sounds, soft, no peritoneal signs. Absent: tenderness - Extremities Exam Extremities exam: Present: warm, radial pulses palpable and symmetrical. Absent : calf tenderness - Neurological Exam Neurological exam: Present: oriented X3 - Patient Status Disposition: Transfer SNF Condition: Good Functional capacity at discharge: uses cane/walker Overall status at discharge: patient is back to baseline - Discharge Instructions Follow Up With: Dejan Moraes MD [Primary Care Provider] - (waiting for the plan, possible ECF placement) Forms: ED Satisfaction Letter, Work/School Release Additional Instructions: Please follow up with your primary care physician within five days after your discharge from the hospital Please follow up with urology, cardiology within one to two weeks after your discharge from the hospital. Please follow up with GI within two months after your discharge from the hospital Your home meds have been changed as follows: 1. Metoprolol 12.5mg once a day has been added 2. Plavix has been discontinued 3. Aspirin 81mg once a day has been added Continue Levaquin as prescribed for two more days. Resume all other home medications as prescribed by your primary care physician. - Diet and Activity Activity: as per physical therapy Diet: diabetic diet, low fat, low cholesterol, low salt diet - VTE Documentation of Mechanical Device: Intermittent pneumatic compression device
--- NOTE | 2017-05-21 14:22 | Physician Discharge Referral ---
ExtendedCare Referral Info Transfer To: [facility] Provider in Charge after Transfer: PCP - Diagnosis (1) Gross hematuria Priority: Primary Status: Resolved (2) Hemorrhage from nephrostomy tube Priority: Primary Status: Resolved (3) NSTEMI (non-ST elevated myocardial infarction) Priority: Secondary Status: Acute (4) CAD (coronary artery disease) Priority: Secondary Status: Chronic (5) Chronic kidney disease Priority: Secondary Status: Chronic (6) DVT prophylaxis Priority: Secondary Status: Acute (7) Renal hemorrhage, right Priority: Secondary Status: Acute (8) Sepsis Priority: Primary Status: Resolved (9) UTI (urinary tract infection) Priority: Primary Status: Acute (10) HTN (hypertension) Priority: Secondary Status: Chronic (11) Anemia Priority: Secondary Status: Acute - Transfer Medications Prescriptions: HYDROcodone/Acet 5/325 mg [[place] 5-325 mg] 1 tab PO Q4HR PRN 5 Days #10 tablet PRN Reason: moderate to severe pain Home Medications: Aspirin Enteric Coated [Aspirin EC] 81 mg PO QAM 11/27/14 [History] ClonazePAM [Klonopin] 0.5 mg PO BID 11/27/14 [History] Ergocalciferol (VITAMIN D2) [Vitamin D2 (50,000 UNIT)] 50,000 unit PO MO [History] Gabapentin [Neurontin] 100 mg PO HS 11/27/14 [History] LevETIRAcetam [Keppra] 1,000 mg PO QPM 11/27/14 [History] LevETIRAcetam [Keppra] 500 mg PO QAM 11/27/14 [History] Simvastatin [Zocor] 10 mg PO QPM 11/27/14 [History] Tamsulosin [Flomax] 0.4 mg PO BID 11/27/14 [History] Lisinopril [Zestril] 5 mg PO BID 03/11/17 [History] Melatonin 3 mg PO HS PRN tablet 03/15/17 [Rx] HYDROcodone/Acet 5/325 mg [[place] 5-325 mg] 1 tab PO Q4HR PRN 5 Days #10 tablet 05/21/17 [Rx] Metoprolol XL (24 HR) Succ [Toprol Xl] 12.5 mg PO DAILY tab.er.24h 05/21/17 [Rx ] levoFLOXacin [Levaquin] 250 mg PO Q24H #2 tablet 05/21/17 [Rx] Allergies/Adverse Reactions: 3 Allergy/AdvReac Type Severity Reaction Status Date / Time Sulfa (Sulfonamide Allergy Rash Verified 05/12/17 07:34 Antibiotics) - Respiratory Orders Smoking Cessation: Smoking cessation has been advised. For more information, call the [employer] Quit Line at 9-201-JKSR-NOW. - Rehabiliation Orders Other: Please follow up with your primary care physician within five days after your discharge from the hospital Please follow up with urology, cardiology within one to two weeks after your discharge from the hospital. Please follow up with GI within two months after your discharge from the hospital Your home meds have been changed as follows: 1. Metoprolol 12.5mg once a day has been added 2. Plavix has been discontinued 3. Aspirin 81mg once a day has been added Continue Levaquin as prescribed for two more days. Resume all other home medications as prescribed by your primary care physician. CERTIFICATION: I certify that the transfer of the above named patient to an Extended Care Facility is necessary for the continuing treatment of the diagnosis listed. The above information is true and accurate reflection of patient's current condition. Confidential - Redisclosure prohibited without a patient's written consent.
[2017-05-21 15:55] VITALS: BP 142/74
[2017-05-22 13:48] LABS: Ova & Parasite Stain NEGATIVE (Negative)
== END 2017-05-21 17:13 | DRG 871 ==
LOC: 2ANU 00:25 → EMEROO 00:25 → 2ANU 04:43
PROVIDERS: ADMIT Family Medicine; ATTEND Internal Medicine